=== PATIENT | female | born 1930 | race Caucasian/White ===

== ENCOUNTER 2017-09-10 15:11 | Outpatient (CLI) | payer MEDICARE | END 2017-09-10 15:12 | disposition home or self-care (01) | LOC: BICRAD 15:11 | PROVIDERS: ATTEND Internal Medicine | DX: R05 Cough (principal); R10.9 Unspecified abdominal pain | CPT/HCPCS: 71046 ==

== ENCOUNTER 2017-09-17 13:52 | Outpatient (CLI) | payer MEDICARE | END 2017-09-17 13:53 | disposition home or self-care (01) | LOC: BICRAD 13:52 | PROVIDERS: ATTEND Internal Medicine | DX: R05 Cough (principal) | CPT/HCPCS: 71046 ==

== ENCOUNTER 2017-09-30 07:44 | Inpatient (IN) | payer MEDICARE ==
[2017-09-30] MEDS ORDERED: Lidocaine 4% Cream 5 GM TUBE w/ Tegaderm ONE ×2 (08:14→08:18)
[2017-09-30 08:23] LABS: Mean Corpuscular HGB CONC 33.2 g/dL (32.0-36.0); Mean Platelet Volume 8.6 fL (7.4-10.4); Platelet Count 157 thou/uL (130-400); RBC Distribution Width 14.2 % (11.5-14.5); Red Blood Cell (RBC) Count 2.37 mill/uL (4.20-5.40); White Blood Cell (WBC) Count 5.6 thou/uL (4.8-10.8)
--- NOTE | 2017-09-30 08:45 | RAD ---
TWO VIEWS CHEST: Date: 09-30-17 Comparison: 06-19-14 History: Fall, trauma, pain, cough. FINDINGS: There is a left sided port-a-cath present, stable. There is atherosclerotic calcification or the aort ic arch. Graft material overlies the midline cardiac silhouette. Post-surgical clips overlie the righ t lung base. Heart and mediastinal contours are stable. There is stable pulmonary hyperinflation and increased linear interstitial density with no focal consolidation or alveolar edema. There is multil evel disc space narrowing and anterior osteophyte formation throughout the thoracic spine. There is a therosclerotic calcification of the visualized abdominal aorta. IMPRESSION: Numerous chronic findings as described above, unchanged. No lobar consolidation or alveolar edema. POS: CHANDAN
[2017-09-30 08:46] LABS: ALT (SGPT) 10 U/L (8-55); AST (SGOT) 12 U/L (5-34); Albumin 3.3 g/dL (3.4-4.8); Alkaline Phosphatase 62 U/L (40-150); Anion Gap 14 mmol/L (10-20); BUN (Urea Nitrogen) 56 mg/dL (9.8-20.1); Bilirubin, Total 0.6 mg/dL (0.2-1.2); CK (CPK) 19 U/L (29-168); Calc. Creatinine Clearance 0 mL/min (70-130); Calcium 9.4 mg/dL (7.8-10.44); Carbon Dioxide 27 mmol/L (23-31); Chloride 103 mmol/L (98-107); Estimated GFR-MDRD 36; Globulin 2.7 g/dL (2.4-3.5); Glucose 124 mg/dL (83-110); Potassium 4.8 mmol/L (3.5-5.1); Sodium 139 mmol/L (136-145)
[2017-09-30 08:50] LABS: CKMB 0.7 ng/mL (0-6.6)
[2017-09-30 08:55] LABS: #Basophils 0.1 thou/uL (0.0-0.2); #Eosinphils 0.1 thou/uL (0.0-0.7); #Lymphocytes 0.4 thou/uL (1.20-3.40); #Monocytes 0.5 thou/uL (0.11-0.59); #Neutrophils 4.7 thou/uL (1.40-6.50); %Eosinophils 0.9 % (0.0-10.0); %Lymphocytes 6.5 % (21.0-51.0); %Monocytes 8.1 % (0.0-10.0); %Neutrophils 83.5 % (42.0-75.0); MDiff Complete? YES; Macrocytosis MODERATE=16-30 cells (100X) (0-5/hpf); PLT Morphology Comment Appears Adequate; Polychromasia MODERATE = 3-4 cells (100X) (0-2/hpf)
[2017-09-30] MEDS ORDERED: Bacitracin Zinc 1 Packet ONE (09:44)
--- NOTE | 2017-09-30 10:27 | CT ---
CT ARTERIOGRAM CHEST WITH IV CONTRAST AND 3D MIP IMAGING: HISTORY: Dyspnea. Elevated D-dimer. COMPARISON: None. FINDINGS: Good contrast opacification of the pulmonary arteries with normal branching of the great vessels of t he aorta. Prominent arterial calcification. Deformity of the left side of the neck is similar to prior CT cervical spine from 2015 and may be rel ated to postoperative changes or congenital anomaly. Scattered areas of scarring are present throughout each lung. A noncalcified nodule within the right lower lobe is 0.8 cm in greatest diameter. Additional tiny, nonspecific nodules are present within each lung. Within the left lower lobe, peripheral atelectasis is present. There is ill defined soft tissue dens ity within the associated bronchi. IMPRESSION: 1. No CT evidence of pulmonary embolus. 2. Right lower lobe nodule, 0.8 cm. 3. Atelectasis, left posterior lung base, with some bronchial material, possibly representing mucus plugging. Please consider pulmonary medicine evaluation. Follow-up CT chest in six months would lik shaji be necessary to evaluate for stability of the right lower lobe nodule. 4. Atherosclerosis. POS: BST
[2017-09-30] MEDS ORDERED: Adacel (T-DAP) 0.5 ML VIAL ONE (10:30)
[2017-09-30] MEDS ORDERED: ISOVUE-370 76%-LOCM 1 ML ONE (10:33)
[2017-09-30] MEDS ORDERED: Levofloxacin 500 mg/D5W 100 ml Premix Bag ONE (10:55)
[2017-09-30 12:22] LABS: Bilirubin Negative (Negative); Blood, Urine Negative (Negative); Clarity CLEAR (Clear); Glucose, Urine (Dipstick) Negative (Negative); Leukocyte Trace (Negative); Nitrite Negative (Negative); Protein, Urine (Dipstick) Negative (Neg-Trace); Specific Gravity, Urine 1.024 (1.002-1.036); Urobilinogen 0.2 mg/dL (0.2-1.0)
[2017-09-30 12:24] LABS: Bacteria/HPF None Seen HPF (None Seen); Hyaline Casts/LPF 0-3 HYALINE CAST LPF (0-3 Hyaline); Pathc Cast-AUWi Flag 0.29 (0-2.49); RBC/HPF 0-3 HPF (0-3); Squamous Epithelial 0-3 HPF (0-3); WBC/HPF 0-3 HPF (0-3)
[2017-09-30 13:25] LABS: Troponin I 0.015 ng/mL (< 0.028)
[2017-09-30] MEDS ORDERED: Ondansetron HCl/PF 4 MG/2 ML Vial IVP PRN (13:56)
[2017-09-30] MEDS ORDERED: Sodium Chloride 0.9% 1,000 ML IV SCH (13:56)
[2017-09-30] MEDS ORDERED: Ondansetron ODT 4 MG TAB SL PRN (13:56)
[2017-09-30] MEDS ORDERED: Fentanyl 100 MCG/2 ML VIAL SLOW IVP PRN (13:57)
[2017-09-30 14:58] LABS: Troponin I 0.023 ng/mL (< 0.028)
[2017-09-30] MEDS ORDERED: Nitroglycerin 0.4 MG TAB (25 Tab Bottle) SL SCH (15:30)
[2017-09-30] MEDS: Sodium Chloride 0.9% 1,000 ML IV SCH (15:34)
[2017-09-30] MEDS: guaiFENesin 200 MG TAB PO SCH ×2 (15:35→21:49)
[2017-09-30] MEDS ORDERED: Cyclobenzaprine 10 MG TAB PO PRN (15:49)
--- NOTE | 2017-09-30 16:54 | CON ---
DATE OF CONSULTATION: 09/30/2017 REASON FOR CONSULTATION: Shortness of breath. PRIMARY CARE PROVIDER: Alvino Arias M.D. HISTORY OF PRESENT ILLNESS: Ms. Dickinson is an 86-year-old woman who is a patient of Dr. Ric Cain. Dr. Ginny Salazar also sees Ms. Dickinson. She recently presented with URI type symptoms over the last 2 weeks. She has received p.o. antibiotics. She has had fevers and chills at home. She then p resented with a fall. She states she did not lose consciousness. She presented to the emergency robin with a skin tear. It was recommended she be admitted for IV antibiotics. From my standpoint, upon my interview, she appears stable. No acute shortness of breath present. From a CV standpoint, she does have a history of TAVR placed in [address] Bridges in [facility]. Last echo on file was noted in 09/2016 with LVEF 55%-60% and a TAVR present. It appeared to be f unctioning normally with no significant mitral regurgitation present. PAST MEDICAL HISTORY: COPD, breast cancer, hypertension. PAST SURGICAL HISTORY: TAVR. ALLERGIES: SULFA. SOCIAL HISTORY: No current tobacco or alcohol use. HOME MEDICATIONS: Include Advair, allopurinol, aspirin, mag oxide, PreserVision, Centrum Silver, lis inopril and Lasix. REVIEW OF SYSTEMS: Ten-point review of systems is reviewed and as above, otherwise negative. PHYSICAL EXAMINATION: GENERAL: Patient is a pleasant female who is in no acute distress. The patient appears her stated a ge. VITAL SIGNS: Blood pressure 120/86, pulse 87, temperature 98. NEUROLOGIC: The patient is alert and oriented times 3 with no focal neurologic deficits. HEENT: Sclerae without icterus. Mouth has moist mucous membranes with normal pallor. NECK: No JVD. Carotid upstroke brisk. No bruits bilaterally. LUNGS: Clear to auscultation with unlabored respirations. BACK: No scoliosis or kyphosis. CARDIAC: Regular rate and rhythm with 2/6 systolic ejection murmur present. ABDOMEN: Soft, nontender, nondistended. No peritoneal signs present. No hepatosplenomegaly. No ab normal striae. EXTREMITIES: 1+ pitting edema. SKIN: No gross abnormalities. PERTINENT LABORATORY DATA: Hemoglobin 10, creatinine 1.4, which is up from 11/2016 of 0.99. IMPRESSION: 1. Shortness of breath. 2. Recent upper respiratory infection. 3. Atelectasis of the left posterior lung with some mucus plugging versus bronchiectasis. From a CV standpoint, I would recommend repeating her echo. It has been one year since her last echo performed in the office. She does have a murmur present. Would continue IV antibiotics. Anticipat e discharge in the next 1-2 days.
[2017-09-30] MEDS: cefTRIAXone\\ROCEPHIN 1 GM in Sodium Chloride 0.9% 100 ML IVPB SCH (17:31)
[2017-09-30] MEDS: Budesonide 0.5 MG/2 ML NEB INH SCH (18:07)
[2017-09-30] MEDS: Mometasone/Formoterol 120 PUFF INHALER INH SCH (18:11)
[2017-09-30] MEDS ORDERED: Mometasone/Formoterol 120 PUFF INHALER INH SCH (18:30)
[2017-09-30] MEDS: Doxycycline 100 MG CAP PO SCH (21:48)
[2017-09-30] MEDS: Acetaminophen 500 MG TAB PO SCH (21:48)
[2017-09-30] MEDS: Magnesium Oxide 400 MG TAB PO SCH (21:49)
[2017-09-30] MEDS: predniSONE 20 MG TAB PO SCH (21:49)
--- NOTE | 2017-09-30 23:02 | HP ---
CHIEF COMPLAINT: Fall and cough. HISTORY OF PRESENT ILLNESS: The patient is an 86-year-old female who is followed by Dr. Salazar. The patient lives fairly independently. She reports that she recently had "the flu that was going around." Patient says she saw her PCP and was given some oral antibiotics and improved with that. However, after the antibiotics were finished within 3-4 days, she started having cough again. She denies any sputum production, although her cough is rattling in her chest. She also denies any fevers, hemoptysis or shortness of breath. States she is still able to ambulate well without any shortness of breath. She also reports that she has been having some swelling in her lower extremities. She has recently had her diuretics increased, but she states that has not significantly helped her edema at this point. The patient was actually told she should come to the hospital yesterday for IV antibiotics. However, the patient declined today; however, she had a stumble and fall with a skin tear on her right forearm and presented to the emergency department that and was willing to stay in the hospital per Dr. Salazar's wishes to get the antibiotics. REVIEW OF SYSTEMS: Primarily notable for the cough. She has essentially negative review of systems other than those things mentioned in the history of present illness through a 10-system review. PAST MEDICAL HISTORY: Notable for COPD requiring nocturnal oxygen therapy. She has a history of aortic stenosis with a TAVR. 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 She has a history of breast cancer requiring lumpectomy with radiation and chemotherapy. 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 Ha. Gout and a history of osteoporosis with compression fractures. PAST SURGICAL HISTORY: Carpal tunnel release and the right shoulder surgery. Umbilical hernia repair with subsequent recurrence, exploratory laparotomy, D&C x2, appendectomy, bilateral cataract-ectomy, bilateral tooth extractions and TAVR procedure. Modified left radical neck dissection. Intracoronary stents according to the patient. However, there is nothing in her history about that and this may be related to the TAVR procedure. FAMILY HISTORY: Father at 86, apparently had some bladder cancer, but that was not the source of his . Mother at 92. She had a brother that at 85. She believes may be related to alcohol and a sister who of a CVA. SOCIAL HISTORY: The patient was a heavy smoker, smoking over 2 packs a day for over 60 years. She quit at the age of 72. The patient continues to have 2-3 glasses of wine per week socially. She denies drugs. She is . She has 4 children. One daughter, Nay Dickinson is here now. She is the person she would identify as her surrogate decision maker. Also, the patient states that she has a fully executed DNR at home and expresses a desire to remain DNR. PHYSICAL EXAMINATION: VITAL SIGNS: Temperature is 98.0, pulse 87, respirations 17, O2 sat 95%, BP 121 /56. GENERAL APPEARANCE: Age appropriate female. She is awake, alert, pleasant, in no distress. HEENT: PERRL. No OP lesions. Dentures in place. NECK: Reveals a substantial surgical defect of the modified radical neck dissection on the left. CARDIOVASCULAR: Regular without significant murmur heard at this time. LUNGS: Reveal some scattered rales in both bases. She has fair air exchange. ABDOMEN: Soft, nontender, nondistended, positive bowel sounds. There is a small umbilical hernia present, which is reducible. EXTREMITIES: Reveal 2-3+ pitting edema to the level of the knee in both lower extremities. There is some mild stasis dermatitis on the left ankle area. Skin tear on the right forearm that is dressed. Small superficial abrasion right posterior scalp. NEUROLOGIC: The patient is intact with no focal deficits. PSYCHIATRIC: Patient has normal affect. LABORATORY DATA: White count is 5.6, hemoglobin 10, platelets 157, D-dimer 1.1. Chemistry is notable for a BUN of 56 and creatinine of 1.4, which are above her baseline. BNP is 260. She has had three troponins which were negative. Albumin is 3.3. Urinalysis essentially negative. The chest x-ray shows chronic findings, some postsurgical clips at the right lung base, hyperinflation with linear interstitial density with no focal consolidation or edema. Significant degenerative disease of the spine is noted and calcifications of the aorta are noted. CT of the chest reveals no evidence of a pulmonary embolus, right lower lobe nodule at 0.8 cm, atelectasis in the posterior lung base with some bronchial material concerning for mucus plugging and atherosclerosis present. IMPRESSION AND PLAN: 1. Cough. Patient has no sputum production with his cough, although it sounds somewhat wet. I have consulted Pulmonology and I have discussed the case with him. His review of the CT scan is more consistent with more of a bronchiectasis type picture. We will give IV Rocephin and nebulizer treatments. He has added some steroids as well. We will add some mucolytics. No evidence of an actual pneumonia at this time. Suspect we can get this turned around fairly quickly and consider outpatient therapy yet again. 2. Significant peripheral edema. The patient's BNP is relatively low. She appears to have some stasis dermatitis. We will ask physical therapy to evaluate her for possible compression. 3. Dehydration. The patient has been on diuretics to address the peripheral edema. However, her edema persists and her BUN and creatinine are elevated in a prerenal manner. We will give her some IV fluids back carefully. We will consult Cardiology as well. 4. Subcentimeter lung nodule. Patient has a long history of heavy smoking and has had 2 previous cancers. I discussed this with the patient and her daughter. This may be too small to fully evaluate now, but they need to at least be aware that it exists and consider potential follow up in the future. 5. Chronic macrocytic anemia. This has been followed by Dr. Ha. We want into a new workup for this as it appears to be chronic. 6. Skin tear right forearm. Wound care. MTDD
--- NOTE | 2017-09-30 23:03 | CON ---
DATE OF CONSULTATION: 09/30/2017 HISTORY OF PRESENT ILLNESS: Candie Dickinson is an 86-year-old female who came to the ER with chronic cough , weakness, marked lower extremity swelling, recurrent coughing episodes, unresponsive to outpatient medication. She apparently fell and tripped this morning in the bathroom, caused extensive right upper extremity skin avulsion evaluation. Dr. Salazar is the primary care physician who called for the patient to go to the hospital for admiss ion for recurrent bronchitis, cough, unresponsive to outpatient medication. She sees Dr. Phelps regularly. The patient states that she had smoked in the past up to 2 packs a day, though she has quit smoking s everal years ago. She says on most days she uses a walker and was able to walk a fair distance witho ut getting short of breath. Denies any history of TB or asthma. She had a chest x-ray taken in the ER, which did not show any acute infiltrate. She had a CAT scan d one, which shows evidence of left lower lung bronchiectatic changes. She is now being admitted. PAST MEDICAL HISTORY: Extensive history as provided from Dr. Salazar's office includes previous hist ory of chronic bronchitis; COPD; history of breast cancer; chronic anemia; previous CVA; previous aph gerson, which has improved; previous coronary artery disease. PAST SURGICAL HISTORY: She has had multiple surgeries as outlined extensively in the past include ri t shoulder surgery, thyroid surgery, cataract, lumpectomy, chemotherapy, radiation. Additionally, she has had cardiac stent placed in. MEDICATIONS: She brought a long list of medicine from home includes albuterol HFA, allopurinol, aspi rin, Symbicort, Lasix 2 twice a day, Synthroid, Cytomel, lisinopril, magnesium, vitamins. ALLERGIES: SULFA. SOCIAL HISTORY: She lives in assisted correction area. No alcohol abuse. Tobacco as noted. REVIEW OF SYSTEMS: Otherwise, 10-point negative. PHYSICAL EXAMINATION: VITAL SIGNS: Blood pressure 135/50, sats 98% on room air, temperature 98, respiratory rate is 17. GENERAL: She appears to be in no distress. CHEST: Revealed bilateral rhonchi and crackles extensively. CARDIAC: Normal S1, S2. No gallops. ABDOMEN: Soft without any masses. EXTREMITIES: She has got 4+ ankle edema. NEUROLOGIC: She is awake, alert, responsive, moves all 4 extremities. LABORATORY DATA: Creatinine is 1.4, BUN is 56. BNP is 260. White count 5000, H&H 10 and 30, platel et count 157. IMPRESSION: 1. Acute on chronic bronchitis, bronchiectasis, chronic cough. 2. Azotemia. 3. Diastolic dysfunction. 4. Probably cor pulmonale. PLAN: Start her on neb treatments, Symbicort, steroids, antibiotic, Mucinex. We will notify Dr. Phelps, will see her in the morning. In regard to lower extremity swelling, she is to elevate them. Await input from Cardiology. This is a consultation note, 70 minutes of which 50% in direct patient care.
[2017-10-01 05:41] LABS: #Lymphocytes 0.2 thou/uL (1.20-3.40); #Monocytes 0.1 thou/uL (0.11-0.59); #Neutrophils 2.1 thou/uL (1.40-6.50); %Eosinophils 0.7 % (0.0-10.0); %Monocytes 3.3 % (0.0-10.0); %Neutrophils 87.9 % (42.0-75.0); Hemoglobin 9.1 g/dL (12.0-16.0); Mean Corpuscular HGB CONC 32.8 g/dL (32.0-36.0); Mean Corpuscular Hemoglobin 41.2 pg (27.0-31.0); Mean Platelet Volume 8.6 fL (7.4-10.4); Platelet Count 135 thou/uL (130-400); White Blood Cell (WBC) Count 2.4 thou/uL (4.8-10.8)
[2017-10-01 05:54] LABS: Anion Gap 12 mmol/L (10-20); BUN (Urea Nitrogen) 44 mg/dL (9.8-20.1); Calc. Creatinine Clearance 39 mL/min (70-130); Calcium 8.9 mg/dL (7.8-10.44); Carbon Dioxide 28 mmol/L (23-31); Chloride 106 mmol/L (98-107); Estimated GFR-MDRD 49; Glucose 176 mg/dL (83-110); Potassium 5.1 mmol/L (3.5-5.1); Sodium 141 mmol/L (136-145)
[2017-10-01] MEDS: Levothyroxine Sodium 100 MCG TAB PO SCH (05:57)
[2017-10-01] MEDS: Sodium Chloride 0.9% 1,000 ML IV SCH (05:57)
[2017-10-01] MEDS: Budesonide 0.5 MG/2 ML NEB INH SCH ×2 (07:09→18:53)
[2017-10-01] MEDS: Mometasone/Formoterol 120 PUFF INHALER INH SCH ×2 (07:13→18:56)
--- NOTE | 2017-10-01 08:01 | PRG ---
DATE OF SERVICE: 10/01/2017 History regarding the patient's admission was reviewed. She is minimizing her complaints today, stat ing that she wants to go home. She continues to be short of breath and cough up greenish yellow sput um. PHYSICAL EXAMINATION: VITAL SIGNS: Temperature 97.5, pulse 100, respirations 16, O2 sat 95%, blood pressure 146/63. HEENT: Unremarkable. NECK: No JVD. LUNGS: She has coarse rhonchi bilaterally, particularly over the bases. CARDIOVASCULAR: S1, S2 regular. ABDOMEN: Soft, nontender. EXTREMITIES: No clubbing, cyanosis, but she has trace edema. LABORATORY DATA: White blood cell count 2.4, hemoglobin 9.1, hematocrit 27.7, platelet count 135. S odium 141, potassium 5.1, chloride 106, CO2 28, BUN 44, creatinine 1.0, glucose 176. I reviewed the CT of the chest, it shows bronchiectatic changes in both bases with 8 mm right lower l obe pulmonary nodule. ASSESSMENT: 1. Chronic obstructive pulmonary disease. 2. Chronic bronchitis with exacerbation. 3. Bronchiectasis. RECOMMENDATIONS: She has apparently failed 4 rounds of antibiotics as an outpatient. I would recomm end continuing the doxycycline and ceftriaxone IV for at least 3 days. Also continue the steroids. Continue nebulization treatments. I do think she would benefit from 1-2 more days in the hospital.
[2017-10-01 08:47] VITALS: BMI 27.8
[2017-10-01] MEDS: Liothyronine Sodium 5 MCG TAB PO SCH (09:58)
[2017-10-01] MEDS: Doxycycline 100 MG CAP PO SCH ×2 (09:59→20:34)
[2017-10-01] MEDS: predniSONE 20 MG TAB PO SCH ×2 (09:59→20:35)
[2017-10-01] MEDS: Lisinopril 10 MG TAB PO SCH (09:59)
[2017-10-01] MEDS: Allopurinol 300 MG TAB PO SCH (09:59)
[2017-10-01] MEDS: guaiFENesin 200 MG TAB PO SCH ×3 (09:59→20:34)
[2017-10-01] MEDS: cefTRIAXone\\ROCEPHIN 1 GM in Sodium Chloride 0.9% 100 ML IVPB SCH (16:28)
--- NOTE | 2017-10-01 16:30 | PDOC.PN ---
- Subjective Encounter Start Date: 10/01/17 Encounter Start Time: 12:00 DOING FAIRLY WELL OVERALL. NO COMPLAINTS. LE EDEMA IS ACTUALLY BETTER TODAY. - Objective Resuscitation Status: Resuscitation Status DNR:Do Not Resuscitate Vital Signs & Weight: Vital Signs (12 hours) Temp Pulse Resp BP Pulse Ox 10/01/17 11:11 98.3 F 91 15 135/60 93 L 10/01/17 08:17 98.3 F 91 15 138/59 L 99 10/01/17 07:09 100 16 95 Weight Admit Weight 142 lb Weight 147 lb I&O: 09/30/17 10/01/17 10/02/17 06:59 06:59 06:59 Intake Total 1940 Output Total 800 Balance 1140 Result Diagrams: 10/01/17 05:08 10/01/17 05:08 Phys Exam - Physical Examination Constitutional: NAD Neck: no JVD, supple SCATTERED BILATERAL RALES. Cardiovascular: RRR, no significant murmur Gastrointestinal: soft, non-tender, no distention, positive bowel sounds 1+ PITTING EDEMA BLE'S. IMPROVED FROM YESTERDAY. Neurological: non-focal Psychiatric: normal affect Deviation from normal: MILD STASIS DERMATITIS LLE. Dx/Plan (1) COPD (chronic obstructive pulmonary disease) with chronic bronchitis Code(s): J44.9 - CHRONIC OBSTRUCTIVE PULMONARY DISEASE, UNSPECIFIED Status: Acute Plan: PULMONOLOGY FOLLOWING. RECOMMENDS CONTINUED IV ANTIBIOTICS FOR 1-2 DAYS. OXYGENATING WELL. CONTINUE IV ROCEPHIN AND ORAL DOXYCYCLINE. WILL DC ON ORAL DOXYCYCLINE. CONTINUE NEBS. (2) Leg edema Code(s): R60.0 - LOCALIZED EDEMA Status: Acute Plan: IMPROVED WITH POSITIONING. AWAITING PT ASSESSMENT FOR POSSIBLE COMPRESSION OPTIONS. (3) Dehydration Code(s): E86.0 - DEHYDRATION Status: Acute Plan: DIRUETICS HELD. GENTLE HYDRATION GIVEN. NUMBERS IMPROVED. WILL RESUME LOWER DOSE DIURETICS TOMORROW. (4) Skin tear of forearm without complication Code(s): S51.819A - LACERATION WITHOUT FOREIGN BODY OF UNSP FOREARM, INIT ENCNTR Status: Acute Plan: WOUND CARE CONSULT. CONTINUE WITH DRESSING CHANGES. - Plan * ABOVE.
--- NOTE | 2017-10-01 17:44 | PRG ---
DATE OF SERVICE: 10/01/2017 SUBJECTIVE: Ms. Dickinson is feeling a lot better. She has less shortness of breath. She continues to be on antibiotic therapy. Her recent echo suggested a normal LVEF. Gradient to the aortic valve appeared unchanged from previo us echo in the office dated 09/2016. Her LVEF appears normal. OBJECTIVE: GENERAL: Patient is a pleasant female who is in no acute distress. The patient appears her stated a ge. VITAL SIGNS: Blood pressure 142/60, pulse 71, temperature 98.3. NEUROLOGIC: The patient is alert and oriented times 3 with no focal neurologic deficits. HEENT: Sclerae without icterus. Mouth has moist mucous membranes with normal pallor. NECK: No JVD. Carotid upstroke brisk. No bruits bilaterally. LUNGS: Clear to auscultation with unlabored respirations. BACK: No scoliosis or kyphosis. CARDIAC: Regular rate and rhythm with 1-2/6 systolic ejection murmur. ABDOMEN: Soft, nontender, nondistended. No peritoneal signs present. No hepatosplenomegaly. No ab normal striae. EXTREMITIES: 2+ femoral and 2+ dorsalis pedis pulses. No cyanosis, clubbing, or edema. SKIN: No gross abnormalities. PERTINENT LABS: Hemoglobin 9.1, white blood cell count 2.4. IMPRESSION: 1. Aortic stenosis status post transcatheter aortic valve replacement. 2. Problems with bronchiectasis. 3. Breast cancer. RECOMMENDATIONS: Overall, LVEF appears stable over the last 1 year. Main issue appears to be bronch iectasis. Her LVEF overall appears normal. From a CV standpoint, I have no further recommendations. From my standpoint, it would be okay to discharge telemetry monitoring and transfer to medical if a nticipate further days in the hospital. The patient is followed by Dr. Ric Cain as an outpatien t.
[2017-10-01] MEDS: Acetaminophen 500 MG TAB PO SCH (20:34)
[2017-10-01] MEDS: Magnesium Oxide 400 MG TAB PO SCH (20:35)
[2017-10-02] MEDS: Levothyroxine Sodium 100 MCG TAB PO SCH (05:19)
[2017-10-02 05:28] LABS: #Lymphocytes 0.3 thou/uL (1.20-3.40); #Monocytes 0.1 thou/uL (0.11-0.59); #Neutrophils 3.6 thou/uL (1.40-6.50); %Basophils 0.4 % (0.0-1.0); %Eosinophils 0.3 % (0.0-10.0); %Lymphocytes 8.3 % (21.0-51.0); %Monocytes 3.1 % (0.0-10.0); %Neutrophils 87.9 % (42.0-75.0); Hemoglobin 9.3 g/dL (12.0-16.0); Mean Corpuscular HGB CONC 32.8 g/dL (32.0-36.0); Mean Corpuscular Hemoglobin 42.1 pg (27.0-31.0); Platelet Count 146 thou/uL (130-400); Red Blood Cell (RBC) Count 2.21 mill/uL (4.20-5.40); White Blood Cell (WBC) Count 4.1 thou/uL (4.8-10.8)
[2017-10-02 05:44] LABS: Anion Gap 13 mmol/L (10-20); BUN (Urea Nitrogen) 37 mg/dL (9.8-20.1); Calc. Creatinine Clearance 48 mL/min (70-130); Calcium 8.9 mg/dL (7.8-10.44); Carbon Dioxide 22 mmol/L (23-31); Chloride 108 mmol/L (98-107); Estimated GFR-MDRD 61; Glucose 188 mg/dL (83-110); Potassium 4.8 mmol/L (3.5-5.1); Sodium 138 mmol/L (136-145)
[2017-10-02] MEDS: Mometasone/Formoterol 120 PUFF INHALER INH SCH ×2 (07:22→19:22)
[2017-10-02] MEDS: Budesonide 0.5 MG/2 ML NEB INH SCH ×2 (07:23→19:20)
[2017-10-02] MEDS: guaiFENesin 200 MG TAB PO SCH ×3 (08:24→20:48)
[2017-10-02] MEDS: Doxycycline 100 MG CAP PO SCH ×2 (08:24→20:48)
[2017-10-02] MEDS: Lisinopril 10 MG TAB PO SCH (08:25)
[2017-10-02] MEDS: Allopurinol 300 MG TAB PO SCH (08:25)
[2017-10-02] MEDS: predniSONE 20 MG TAB PO SCH ×2 (08:25→20:49)
[2017-10-02] MEDS: Liothyronine Sodium 5 MCG TAB PO SCH (08:25)
--- NOTE | 2017-10-02 09:12 | PDOC.PN ---
- Subjective Encounter Start Date: 10/02/17 Encounter Start Time: 09:11 FEELING A LITTLE BETTER. COUGH IS SLIGHTLY IMPROVED. SPUTUM IS EASIER TO MANAGE. MODEST DISCOMFORT IN RIGHT FOREARM WITH SKIN TEAR. - Objective Resuscitation Status: Resuscitation Status DNR:Do Not Resuscitate MAR Reviewed: Yes Vital Signs & Weight: Vital Signs (12 hours) Temp Pulse Resp BP BP Pulse Ox 10/02/17 08:20 97.9 F 72 18 124/53 L 93 L 10/02/17 07:25 72 18 94 L 10/02/17 07:23 72 18 94 L 10/02/17 07:22 72 16 92 L 10/02/17 03:35 98.2 F 90 18 145/60 H 98 Weight Admit Weight 142 lb Weight 147 lb I&O: 10/01/17 10/02/17 10/03/17 06:59 06:59 06:59 Intake Total 1940 1440 Output Total 800 800 Balance 1140 640 Result Diagrams: 10/02/17 04:34 10/02/17 04:34 Phys Exam - Physical Examination Constitutional: NAD Respiratory: no wheezing, no rales, no rhonchi, clear to auscultation bilateral Cardiovascular: RRR MURMUR USB Gastrointestinal: soft, non-tender, no distention, positive bowel sounds IMPROVED LE EDEMA Neurological: non-focal Psychiatric: normal affect Deviation from normal: R FA WRAPPED. Dx/Plan (1) COPD (chronic obstructive pulmonary disease) with chronic bronchitis Code(s): J44.9 - CHRONIC OBSTRUCTIVE PULMONARY DISEASE, UNSPECIFIED Status: Acute Plan: COMPONENT OF BRONCHIECTASIS. CONTINUE ROCEPHIN AND DOXYCYCLINE TODAY. CONTINUE GUAIFENESIN, NEBS. (2) Bronchiectasis Code(s): J47.9 - BRONCHIECTASIS, UNCOMPLICATED Status: Acute Plan: EXPLAINED THE PATHOLOGY TO PATIENT AND DAUGHTER. MAY HAVE SOME CHRONIC COUGH. SHOULD CONTINUE TO USE THE MUCOLYTICS AND TREAT WHEN SHE IS MORE SYMPTOMATIC, FEBRILE OR HAS DISCOLORED SPUTUM. (3) Leg edema Code(s): R60.0 - LOCALIZED EDEMA Status: Acute Plan: KEEP ELEVATED TOLERATED. SUSPECT VENOUS INSUFFICIENCY. MUCH IMPROVED. (4) Dehydration Code(s): E86.0 - DEHYDRATION Status: Resolved Plan: HAD HELD DIURETICS AND GIVEN FLUIDS. BUN, CREAT IMPROVED. RESUME ONCE DAILY LASIX. (5) Skin tear of forearm without complication Code(s): S51.819A - LACERATION WITHOUT FOREIGN BODY OF UNSP FOREARM, INIT ENCNTR Status: Acute Plan: WOUND CARE DRESSED THE WOUND. DRESSING CAN STAY FOR 3 DAYS. HH CAN FOLLOW. - Plan * ABOVE * CONTINUE IV ABX TODAY. * WILL LIKELY BE LATE BEFORE DOSE IS GIVEN * SHE HAS NO HELP AT HOME UNTIL THE MORNING * ANTICIPATE DC IN A.M.
[2017-10-02] MEDS ORDERED: Furosemide 40 MG TAB PO SCH (09:15)
--- NOTE | 2017-10-02 10:09 | PRG ---
DATE OF SERVICE: 10/02/2017 SUBJECTIVE: She is beginning to feel much better. OBJECTIVE: VITAL SIGNS: Temperature is 97.9, pulse 72, respirations 18, blood pressure 124/53, O2 sat 93% on ro om air. HEENT: Unremarkable. NECK: No JVD. CHEST: Clear. She does have some residual cough. CARDIAC: S1 and S2 regular. ABDOMEN: Soft. EXTREMITIES: No edema. LABORATORY DATA: White blood cell count 4.1, hematocrit 28.3, platelet count 146. Sodium 130, potas sium 4.8, chloride 108, CO2 22, BUN 37, creatinine 0.8, glucose 188. ASSESSMENT: Chronic bronchitis/bronchiectasis with exacerbation - symptoms have improved on antibiot ics. PLAN: I think she could probably go home tomorrow. I would switch her over to Omnicef 600 mg daily at discharge and treated for another 7 days. I would also treat her for another 7 days of doxycyclin e. She can follow up in my office about 3 weeks after discharge.
[2017-10-02] MEDS: cefTRIAXone\\ROCEPHIN 1 GM in Sodium Chloride 0.9% 100 ML IVPB SCH (16:20)
[2017-10-02] MEDS: Magnesium Oxide 400 MG TAB PO SCH (20:48)
[2017-10-02] MEDS: Acetaminophen 500 MG TAB PO SCH (20:49)
[2017-10-03 04:59] LABS: #Lymphocytes 0.3 thou/uL (1.20-3.40); #Monocytes 0.2 thou/uL (0.11-0.59); #Neutrophils 3.3 thou/uL (1.40-6.50); %Basophils 0.4 % (0.0-1.0); %Eosinophils 0.2 % (0.0-10.0); %Lymphocytes 7.8 % (21.0-51.0); %Monocytes 5.4 % (0.0-10.0); %Neutrophils 86.3 % (42.0-75.0); Hemoglobin 8.6 g/dL (12.0-16.0); Mean Corpuscular HGB CONC 33.7 g/dL (32.0-36.0); Mean Corpuscular Hemoglobin 42.7 pg (27.0-31.0); Platelet Count 152 thou/uL (130-400); Red Blood Cell (RBC) Count 2.02 mill/uL (4.20-5.40); White Blood Cell (WBC) Count 3.8 thou/uL (4.8-10.8)
[2017-10-03 05:09] LABS: Anion Gap 11 mmol/L (10-20); BUN (Urea Nitrogen) 42 mg/dL (9.8-20.1); Calc. Creatinine Clearance 51 mL/min (70-130); Calcium 8.9 mg/dL (7.8-10.44); Carbon Dioxide 25 mmol/L (23-31); Chloride 111 mmol/L (98-107); Estimated GFR-MDRD 65; Glucose 159 mg/dL (83-110); Potassium 4.8 mmol/L (3.5-5.1); Sodium 142 mmol/L (136-145)
[2017-10-03] MEDS: Levothyroxine Sodium 100 MCG TAB PO SCH (05:55)
[2017-10-03] MEDS: Mometasone/Formoterol 120 PUFF INHALER INH SCH (07:07)
[2017-10-03] MEDS: Budesonide 0.5 MG/2 ML NEB INH SCH (07:07)
[2017-10-03] MEDS ORDERED: Furosemide 40 MG TAB PO SCH ×2 (07:30→08:56)
[2017-10-03] MEDS: Liothyronine Sodium 5 MCG TAB PO SCH (08:17)
[2017-10-03] MEDS: Allopurinol 300 MG TAB PO SCH (08:17)
[2017-10-03] MEDS: Doxycycline 100 MG CAP PO SCH (08:17)
[2017-10-03] MEDS: Lisinopril 10 MG TAB PO SCH (08:18)
[2017-10-03] MEDS: guaiFENesin 200 MG TAB PO SCH (08:18)
[2017-10-03] MEDS: predniSONE 20 MG TAB PO SCH (08:18)
[2017-10-03 08:26] VITALS: BP 166/70; TEMP 97.4
--- NOTE | 2017-10-03 16:51 | DIS ---
DATE OF ADMISSION: 09/30/2017 DATE OF DISCHARGE: 10/03/2017 DISCHARGE DIAGNOSES: 1. 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 2. Bronchiectasis. 3. Peripheral edema. 4. Skin tear of the right forearm. 5. Mild dehydration. 6. Chronic macrocytic anemia, followed by Dr. Ha. HOSPITAL COURSE: This patient is an 86-year-old female who is followed by Dr. Salazar. The patient has a history of some chronic lower extremity edema and is followed by Cardiology. She had some diur esis for this. The patient was with Cardiology because of history of a transvenous aortic valve repa ir. This appeared to be otherwise stable. She was not having significant improvement of the periphe ral edema with the diuretics. In the setting of that picture, the patient developed cough some weeks prior to her admission. She reported that the cough was wet, but she was unable to produce any sput um. She had been on several rounds of antibiotics as an outpatient, but was having a difficult time resolving the cough. She did finally have some mild resolution, but then her symptoms recurred fairl y promptly. With this, the patient's primary care provider recommended that she come to the hospital for IV antibiotics. The patient initially declined; however, on the subsequent day, the patient had a mechanical fall and resulted in a large skin tear on her right forearm. The patient presented to the emergency department for that and was subsequently willing to stay for the antibiotics as well. Her chest x-ray showed some chronic findings with no acute infiltrates. CT scan of the chest reveale d no evidence of PE, but there was right lower lobe nodule at 0.8 cm. There was some atelectasis in the posterior lung base with some bronchial material concerning for mucus plugging and some atheroscl erosis present. Her white count was 5.6. D-dimer was 1.1. Chemistries were notable for BUN of 56 a nd creatinine of 1.4, which were above her baseline. Her troponins and urinalysis were negative. HOSPITAL COURSE: The patient was admitted initially to observation and started on IV Rocephin as wel l as mucolytics and nebulizer treatments. Pulmonology was consulted. On the review of the CAT scan, it appeared that there may be more bronchiectasis than originally reported. The recommendation was for her IV antibiotics for 2-3 days and then continuation with oral Omnicef and doxycycline. The pat ient remained stable, if not slightly improved with her cough with antibiotics. The patient also had her lower extremities elevated to address her lower extremity edema. That did improve substantially . The patient's forearm was seen by Wound Care and dressing was applied appropriately. That remaine d on with their care through the hospitalization. The patient's initial workup was concerning for in travascular depletion with some prerenal azotemia. This was felt to be due to the aggressive diuresi s. Her diuretics were initially held and she was gently hydrated. Her numbers did improve with that . She was subsequently started back on 40 mg of Lasix once a day which was lower dose than she had o riginally been on. PHYSICAL EXAMINATION: VITAL SIGNS: On the day of discharge, temperature 97.4, pulse ranged from 90-115, respirations were 18, O2 sat was 92% on room air, and BP 147/63-166/70. GENERAL APPEARANCE: Age appropriate female in no distress. She was awake and alert. She was in no distress. HEART: Regular with no murmurs. LUNGS: Had some scattered rales which were largely upper airway. ABDOMEN: Soft, nontender and nondistended with positive bowel sounds. EXTREMITIES: Warm and dry with only trace ankle edema. LABORATORY DATA: Were notable for white count of 3.8, hemoglobin of 8.6, platelets 152, BUN was 42 a nd creatinine was 0.83. DISPOSITION: The patient is discharged to home. She will have home health following her for skill t o help with her right forearm wound as well as therapy. She will have activity as tolerated. She wi ll be on a heart healthy diet. DISCHARGE MEDICATIONS: Her new medications will include Omnicef 300 mg b.i.d., doxycycline 100 mg b. i.d., Lasix 400 mg daily. Her usual medicines, continue her lisinopril 10 mg p.o. daily, Cytomel 5 m cg p.o. daily, levothyroxine 200 mcg p.o. daily, allopurinol 300 mg p.o. daily, albuterol p.r.n., mimi taminophen p.r.n., Symbicort 2 puffs b.i.d., aspirin 81 mg daily, multivitamin 1 p.o. daily, nitrogly cerin p.r.n., magnesium 400 mg at bedtime, vitamin D3 2000 units every day, cyclobenzaprine 0.5 mg at bedtime p.r.n., Centrum Silver Women 1 p.o. daily. The patient is to follow up with Dr. Salazar next week. If she has any problems prior to that time, she should return.
== END 2017-10-03 10:47 | disposition home health service (06) | DRG 192 ==
LOC: ERS 07:44 → 2NO 13:35
PROVIDERS: ADMIT Internal Medicine; ATTEND Internal Medicine
DX: J47.1 Bronchiectasis with (acute) exacerbation (principal); I87.2 Venous insufficiency (chronic) (peripheral); E86.0 Dehydration; D53.9 Nutritional anemia, unspecified; R91.1 Solitary pulmonary nodule; R60.9 Edema, unspecified; S51.811A Laceration without foreign body of right forearm, initial encounter; I69.320 Aphasia following cerebral infarction; Z66 Do not resuscitate; Z87.891 Personal history of nicotine dependence; E89.0 Postprocedural hypothyroidism; I25.10 Atherosclerotic heart disease of native coronary artery without angina pectoris; M81.0 Age-related osteoporosis without current pathological fracture; Z95.2 Presence of prosthetic heart valve; M10.9 Gout, unspecified; Z85.850 Personal history of malignant neoplasm of thyroid; Z85.3 Personal history of malignant neoplasm of breast; Z95.5 Presence of coronary angioplasty implant and graft; Z79.82 Long term (current) use of aspirin; Z79.899 Other long term (current) drug therapy; W01.0XXA Fall on same level from slipping, tripping and stumbling without subsequent striking against object, initial encounter; Y92.009 Unspecified place in unspecified non-institutional (private) residence as the place of occurrence of the external cause
CPT/HCPCS: 12001; 36415; 71046; 71275; 80048; 80053; 81003; 81015; 82550; 82553; 83880; 84484; 85025; 85379; 87040; 87086; 90471; 90715; 93005; 93306; 94640; 96365; G8978-GP-CJ; G8979-GP-CJ; G8980-GP-CJ; J0696; J1956; J7050; J7506; J7620; J7626

== ENCOUNTER 2017-10-07 13:32 | Outpatient (CLI) | payer MEDICARE ==
--- NOTE | 2017-10-07 19:32 | HP ---
DATE OF SERVICE: 10/07/2017 HISTORY OF PRESENT ILLNESS: Ms. Candie Dickinson is a very pleasant 86-year-old who presents to the Wound Center for evaluation of multiple skin tears of the right upper extremity subsequent to a fall on 09/30/2017. The patient stumbled and fell on her way to the hospital for admission for IV antibiotics as per Dr. Salazar. The patient's wounds were dressed at [facility] on the day of admission following day and on the day of discharge on 10/03/2017. PAST MEDICAL HISTORY: 1. Chronic bronchitis. 2. Chronic obstructive pulmonary disease. 3. Bronchiectasis. 4. History of breast CA. 5. Chronic anemia. 6. History of cerebrovascular accident. 7. Coronary artery disease. 8. History of aortic stenosis, status post TAVR. 9. 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 10. Warthin's tumor of right parotid. 11. Atrial fibrillation. 12. Gout. 13. Osteoporosis. 14. Hypertension. PAST SURGICAL HISTORY: 1. Right shoulder surgery. 2. Thyroid surgery. 3. Bilateral cataract surgery. 4. Lumpectomy in conjunction with chemotherapy and radiation therapy. 5. Carpal tunnel release. 6. Umbilical hernia repair. 7. Exploratory laparotomy. 8. D&C x2. 9. Appendectomy. 10. Oral surgery. MEDICATIONS: 1. Omnicef. 2. Doxycycline. 3. Lasix. 4. Lisinopril. 5. Cytomel. 6. Levothyroxine. 7. Lasix. 8. Allopurinol. 9. Albuterol. 10. Acetaminophen. 11. Symbicort. 12. Aspirin 81 mg. 13. PreserVision. 14. Nitroglycerin. 15. Magnesium oxide. 16. Vitamin D3. 17. Cyclobenzaprine. 18. Centrum Silver Women. ALLERGIES: SULFA. SOCIAL HISTORY: Significant for tobacco use from age [age] of up to 3 packs of cigarettes per day. The patient states that she stopped smoking 10 years ago. The patient admits to the consumption of w ine with dinner. FAMILY HISTORY: Negative for diabetes mellitus. Family history is significant for coronary artery d isease. The patient's brother was diagnosed with coronary artery disease. PHYSICAL EXAMINATION: VITAL SIGNS: Temperature 97.7, pulse 92, respirations 14, blood pressure 151/67. GENERAL: An 86-year-old female sitting on table in examination room in no acute distress. HEENT: Normocephalic, atraumatic. NECK: No nuchal rigidity. CHEST: Clear to auscultation. CARDIOVASCULAR: Regular rate and rhythm. ABDOMEN: Soft. EXTREMITIES: Multiple skin tears of the right upper extremity are present. No purulent drainage is associated with any of the wounds. Nonviable tissue associated with one of the skin tears was debrid ed with an excisional full-thickness debridement with the use of scissors. No cellulitis of the righ t upper extremity is appreciated. No maceration of the skin of the right upper extremity is present. Mild to moderate edema of the right upper extremity is present on exam today. ASSESSMENT AND PLAN: 1. Multiple skin tears of right upper extremity as described above. Xeroform gauze, Webril, Colton, an d Coban will be applied to the right upper extremity wounds today. The patient is to return to the [facility] in 1 week for a dressing change again of Xeroform gauze, Webril, Colton bandage, and Coban. I will see Ms. Dickinson again in two weeks. The patient is to continue p.o. antibiotics as previously prescribed. The patient and her daughter understands and are in agreement with the preceding treatme nt plan. 2. Chronic bronchitis. 3. Chronic obstructive pulmonary disease. 4. Bronchiectasis. 5. History of breast carcinoma. 6. Chronic anemia. 7. History of cerebrovascular accident. 8. Coronary artery disease. 9. History of aortic stenosis, status post TAVR. 10. 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 11. Warthin's tumor of right parotid. 12. Atrial fibrillation. 13. Gout. 14. Osteoporosis. 15. Hypertension.
[2017-10-08] MEDS ORDERED: Sodium Chloride 0.9% 15 ML NEB ONE (18:57)
[2017-10-08] MEDS ORDERED: Lidocaine 2% Jelly 5 ML TUBE ONE (18:57)
== END 2017-10-07 13:33 | disposition home or self-care (01) ==
LOC: WCC 13:32
PROVIDERS: ATTEND Family Medicine
DX: L98.491 Non-pressure chronic ulcer of skin of other sites limited to breakdown of skin (principal); J44.9 Chronic obstructive pulmonary disease, unspecified; Z85.3 Personal history of malignant neoplasm of breast; D64.9 Anemia, unspecified; Z86.73 Personal history of transient ischemic attack (TIA), and cerebral infarction without residual deficits; I25.10 Atherosclerotic heart disease of native coronary artery without angina pectoris; Z95.2 Presence of prosthetic heart valve; E89.0 Postprocedural hypothyroidism; D11.0 Benign neoplasm of parotid gland; I48.91 Unspecified atrial fibrillation; M10.9 Gout, unspecified; M81.0 Age-related osteoporosis without current pathological fracture; I10 Essential (primary) hypertension
CPT/HCPCS: 11042; 99203; A4218; G0463

== ENCOUNTER 2017-10-15 09:50 | Outpatient (CLI) | payer MEDICARE ==
[2017-10-18] MEDS ORDERED: Lidocaine 4% Topical Sol 50 ML BOT ONE (13:38)
[2017-10-18] MEDS ORDERED: Sodium Chloride 0.9% 15 ML NEB ONE (13:38)
== END 2017-10-15 09:51 | disposition home or self-care (01) ==
LOC: WCC 09:50
PROVIDERS: ATTEND Family Medicine
DX: S40.921A Unspecified superficial injury of right upper arm, initial encounter (principal)
CPT/HCPCS: 97139; G0463; 99211; A4218; J2001

== ENCOUNTER 2017-10-22 09:29 | Outpatient (CLI) | payer MEDICARE ==
--- NOTE | 2017-10-22 10:31 | PRG ---
DATE OF SERVICE: 10/22/2017 HISTORY: Ms. Candie Dickinson is a very pleasant 86-year-old who presents to the Wound Center for evaluation of multiple skin tears of the right upper extremity subsequent to a fall on 8. The patient stumbled and fell on her way to the hospital for admission for IV antibiotics. The p yasmeen's wounds were dressed at [facility] on the day of admission, the follow ing day and on the day of discharge on 10/03/2017. After being seen in the Wound Center on 8, the patient has been receiving dressing changes of Xeroform gauze, Webril, Colton, and Coban on a wee kly basis here in the Wound Center. PHYSICAL EXAMINATION: VITAL SIGNS: Temperature 98.0, pulse 99, respirations 16, blood pressure 166/63. EXTREMITIES: Multiple skin tears of the right upper extremity are healing without complications or a ny signs of infection. No purulent drainage is associated with any of the wounds. Granulation tissu e is present within the margins of two of the wounds of the right upper extremity. No cellulitis of the right upper extremity is present. No maceration of the skin of the right upper extremity is pres ent. No significant edema of the right upper extremity is present on exam today. ASSESSMENT AND PLAN: 1. Multiple skin tears of right upper extremity. All of the wounds are healing without complication s or any signs of infection. Xeroform gauze, Webril, Colton, and Coban will be applied again to the rig ht upper extremity wounds today. I will see Ms. Dickinson again in one week. The patient and her daught er-in-law understands and are in agreement with the preceding treatment plan. 2. Chronic bronchitis. 3. Chronic obstructive pulmonary disease. 4. Bronchiectasis. 5. History of breast carcinoma. 6. Chronic anemia. 7. History of cerebrovascular accident. 8. Coronary artery disease. 9. History of aortic stenosis, status post TAVR. 10. Surgical hypothyroidism following adenocarcinoma of the thyroid in modified radical neck dissect ion. 11. Warthin's tumor of right parotid. 12. Atrial fibrillation. 13. Gout. 14. Osteoporosis. 15. Hypertension.
[2017-10-22] MEDS ORDERED: Sodium Chloride 0.9% 15 ML NEB ONE (10:34)
[2017-10-22] MEDS ORDERED: Lidocaine 2% Jelly 5 ML TUBE ONE (10:34)
== END 2017-10-22 09:30 | disposition home or self-care (01) ==
LOC: WCC 09:29
PROVIDERS: ATTEND Family Medicine
DX: S61.411D Laceration without foreign body of right hand, subsequent encounter (principal); J42 Unspecified chronic bronchitis; J47.9 Bronchiectasis, uncomplicated; D64.9 Anemia, unspecified; I25.10 Atherosclerotic heart disease of native coronary artery without angina pectoris; E89.0 Postprocedural hypothyroidism; D11.0 Benign neoplasm of parotid gland; I48.91 Unspecified atrial fibrillation; M10.9 Gout, unspecified; M81.0 Age-related osteoporosis without current pathological fracture; I10 Essential (primary) hypertension; Z86.73 Personal history of transient ischemic attack (TIA), and cerebral infarction without residual deficits; Z85.850 Personal history of malignant neoplasm of thyroid; Z85.3 Personal history of malignant neoplasm of breast; Z95.2 Presence of prosthetic heart valve
CPT/HCPCS: 97602; A4218

== ENCOUNTER 2017-10-26 08:22 | Outpatient (CLI) | payer MEDICARE | END 2017-10-26 08:23 | disposition home or self-care (01) | LOC: WCC 08:22 | PROVIDERS: ATTEND Family Medicine | DX: S41.111D Laceration without foreign body of right upper arm, subsequent encounter (principal) | CPT/HCPCS: 97139; G0463; 99211 ==

== ENCOUNTER 2017-10-28 14:52 | Outpatient (CLI) | payer MEDICARE ==
--- NOTE | 2017-10-28 18:58 | PRG ---
DATE OF SERVICE: 10/28/2017 . HISTORY: Ms. Candie Dickinson is a very pleasant 86-year-old, who presents to the Wound Center for evaluati on of multiple skin tears of the right upper extremity subsequent to a fall on 09/30/2017. The patie nt stumbled and fell on her way to the hospital for admission for IV antibiotics. The patient's woun ds were dressed at [facility] on the day of admission the following day and on the day of discharge on 10/03/2017. After being seen in the Wound Center on 10/07/2017, the patient has been receiving dressing changes of Xeroform gauze, Webril, Colton, and Coban on a weekly basis here in the Wound Center. PHYSICAL EXAMINATION: VITAL SIGNS: Temperature 97.7, pulse 88, respirations 19, and blood pressure 133/60. EXTREMITIES: Two skin tears of the right upper extremity are healing without complications or any si gns of infection. No purulent drainage is associated with either wound. Granulation tissue is prese nt within the margins of both wounds. No cellulitis of the right upper extremity is present. No mac eration of the skin of the right upper extremity is present. No significant edema of the right upper extremity is present on exam today. ASSESSMENT AND PLAN: 1. Multiple skin tears of right upper extremity. As stated above, only two wounds remain. Xeroform gauze, Webril, Colton, and Coban will be applied to the two remaining right upper extremity wounds toda y. I will see Ms. Dickinson again in one week. 2. Chronic bronchitis. 3. Chronic obstructive pulmonary disease. 4. Bronchiectasis. 5. History of breast carcinoma. 6. Chronic anemia. 7. History of cerebrovascular accident. 8. Coronary artery disease. 9. History of aortic stenosis, status post TAVR. 10. Surgical hypothyroidism following adenocarcinoma of the thyroid with modified radical neck disse ction. 11. Warthin's tumor of right parotid. 12. Atrial fibrillation. 13. Gout. 14. Osteoporosis. 15. Hypertension.
== END 2017-10-28 14:53 | disposition home or self-care (01) ==
LOC: WCC 14:52
PROVIDERS: ATTEND Family Medicine
DX: S41.111D Laceration without foreign body of right upper arm, subsequent encounter (principal); J44.9 Chronic obstructive pulmonary disease, unspecified; D53.9 Nutritional anemia, unspecified; I25.10 Atherosclerotic heart disease of native coronary artery without angina pectoris; D11.0 Benign neoplasm of parotid gland; I48.91 Unspecified atrial fibrillation; M10.9 Gout, unspecified; M81.0 Age-related osteoporosis without current pathological fracture; I10 Essential (primary) hypertension; Z85.3 Personal history of malignant neoplasm of breast; Z98.890 Other specified postprocedural states
CPT/HCPCS: 97602

== ENCOUNTER 2017-11-04 10:17 | Outpatient (CLI) | payer MEDICARE ==
--- NOTE | 2017-11-04 11:12 | PRG ---
DATE OF SERVICE: 11/04/2017 HISTORY: Ms. Candie Dickinson is a very pleasant 86-year-old who presents to the Wound Center for evaluati on of multiple skin tears of the right upper extremity, subsequent to a fall on 09/30/2017. The sheila ent stumbled and fell on her way to the hospital for admission for IV antibiotics. The patient's wou nds were dressed at [facility] on the day of admission, the following day and on the day of discharge on 10/03/2017. After being seen in the Wound Center on 10/07/2017 the radha da silva has been receiving weekly dressing changes of Xeroform gauze, Webril, Colton, and Coban here in the Wo und Center. PHYSICAL EXAMINATION: VITAL SIGNS: Temperature 97.8, pulse 98, respirations 18, blood pressure 154/65. EXTREMITIES: Only one wound of the right forearm over the dorsum of the forearm is present. The wou nd measures approximately 2.9 x 2.3 cm. Granulation tissue is present within the wound margins. No purulent drainage is associated with the wound. No erythema of the skin surrounding the wound is pre sent. No maceration of the skin of the periwound is noted. No significant edema of the right upper extremity is present on exam today. ASSESSMENT AND PLAN: 1. Multiple skin tears of right upper extremity. As stated above, only one wound remains. Xeroform gauze, Webril, Colton, and Coban will be applied to the remaining wound today. I will see Ms. Dickinson marc anguiano in 1 week. 2. Chronic bronchitis. 3. Chronic obstructive pulmonary disease. 4. Bronchiectasis. 5. History of breast carcinoma. 6. Chronic anemia. 7. History of cerebrovascular accident. 8. Coronary artery disease. 9. History of aortic stenosis, status post TAVR. 10. Surgical hypothyroidism following adenocarcinoma of the thyroid with modified radical neck disse ction. 11. Warthin's tumor of right parotid. 12. Atrial fibrillation. 13. Gout. 14. Osteoporosis. 15. Hypertension.
== END 2017-11-04 10:18 | disposition home or self-care (01) ==
LOC: WCC 10:17
PROVIDERS: ATTEND Family Medicine
DX: S41.111D Laceration without foreign body of right upper arm, subsequent encounter (principal); J44.9 Chronic obstructive pulmonary disease, unspecified; J47.9 Bronchiectasis, uncomplicated; D64.9 Anemia, unspecified; I25.10 Atherosclerotic heart disease of native coronary artery without angina pectoris; D11.0 Benign neoplasm of parotid gland; I48.91 Unspecified atrial fibrillation; M10.9 Gout, unspecified; M81.0 Age-related osteoporosis without current pathological fracture; I10 Essential (primary) hypertension; Z86.73 Personal history of transient ischemic attack (TIA), and cerebral infarction without residual deficits; Z95.2 Presence of prosthetic heart valve
CPT/HCPCS: 97602

== ENCOUNTER 2017-11-12 10:15 | Outpatient (CLI) | payer MEDICARE ==
--- NOTE | 2017-11-12 11:34 | PRG ---
DATE OF SERVICE: 11/12/2017 HISTORY: Ms. Candie Dickinson is a very pleasant 86-year-old who presents to the Wound Center for evaluatio n of multiple skin tears of the right upper extremity subsequent to a fall on 09/30/2017. The patien t stumbled and fell on her way to the hospital for admission for IV antibiotics. The patient's wound s were dressed at [facility] on the day of admission, the following day and on the day of discharge on 10/03/2017. After being seen in the Wound Center on 10/07/2017, the patient has been receiving weekly dressing changes of Xeroform gauze, Webril, Colton and Coban here in the Woun d Center. PHYSICAL EXAMINATION: VITAL SIGNS: Temperature 98.2, pulse 85, respirations 22, blood pressure 159/63. EXTREMITIES: Only one wound of the right forearm over the dorsum of the forearm is present. The wou nd measures approximately 1.7 x 2.0 cm. Granulation tissue is present within the wound margins. No purulent drainage is associated with the wound. No erythema of the skin surrounding the wound is pre sent. No maceration of the skin of the periwound is noted. No significant edema of the right upper extremity is present on exam today. ASSESSMENT AND PLAN: 1. Multiple skin tears of right upper extremity. As stated above, only one wound remains. Xeroform gauze, Webril and Coban will be applied to the remaining wound today. I will see Ms. Dickinson again in 1 week. 2. Chronic bronchitis. 3. Chronic obstructive pulmonary disease. 4. Bronchiectasis. 5. History of breast carcinoma. 6. Chronic anemia. 7. History of cerebrovascular accident. 8. Coronary artery disease. 9. History of aortic stenosis, status post TAVR. 10. Surgical hypothyroidism following adenocarcinoma of the thyroid with modified radical neck disse ction. 11. Warthin's tumor of right parotid. 12. Atrial fibrillation. 13. Gout. 14. Osteoporosis. 15. Hypertension.
== END 2017-11-12 10:16 | disposition home or self-care (01) ==
LOC: WCC 10:15
PROVIDERS: ATTEND Family Medicine
DX: S51.811D Laceration without foreign body of right forearm, subsequent encounter (principal); J47.9 Bronchiectasis, uncomplicated; J44.9 Chronic obstructive pulmonary disease, unspecified; I25.10 Atherosclerotic heart disease of native coronary artery without angina pectoris; D11.0 Benign neoplasm of parotid gland; C73 Malignant neoplasm of thyroid gland; I48.91 Unspecified atrial fibrillation; M10.9 Gout, unspecified; M81.0 Age-related osteoporosis without current pathological fracture; I10 Essential (primary) hypertension; D64.9 Anemia, unspecified; E89.0 Postprocedural hypothyroidism; Z86.73 Personal history of transient ischemic attack (TIA), and cerebral infarction without residual deficits; Z85.3 Personal history of malignant neoplasm of breast; Z95.2 Presence of prosthetic heart valve
CPT/HCPCS: 97602

== ENCOUNTER 2017-11-19 11:28 | Outpatient (CLI) | payer MEDICARE ==
--- NOTE | 2017-11-19 11:38 | PRG ---
DATE OF SERVICE: 11/19/2017 HISTORY: Ms. Candie Dickinson is a very pleasant 87-year-old who presents to the Wound Center for evaluatio n of multiple skin tears of the right upper extremity, subsequent to a fall on 09/30/2017. The patie nt stumbled and fell on her way to the hospital for admission for IV antibiotics. The patient's woun ds were dressed at [facility] on the day of admission, the following day and o n the day of discharge on 10/03/2017. After being seen in the Wound Center on 10/07/2017, the patien rekha has been receiving weekly dressing changes here in the Wound Center. PHYSICAL EXAMINATION: VITAL SIGNS: Temperature 97.6, pulse 106, respirations 22, blood pressure 151/58. EXTREMITIES: Only one wound of the right forearm over the dorsum of the forearm is present. The wou nd measures approximately 1.0 x 1.0 cm. Granulation tissue is present within the wound margins. No purulent drainage is associated with the wound. No erythema of the skin surrounding the wound is pre sent. No maceration of the skin of the periwound is noted. No significant edema of the right upper extremity is present on exam today. ASSESSMENT AND PLAN: 1. Multiple skin tears of right upper extremity. As stated above, only one wound remains. Xeroform gauze, Webril, and Coban will be applied to the remaining wound again today. I will see Ms. Dickinson a gain in 1 week. 2. Chronic bronchitis. 3. Chronic obstructive pulmonary disease. 4. Bronchiectasis. 5. History of breast carcinoma. 6. Chronic anemia. 7. History of cerebrovascular accident. 8. Coronary artery disease. 9. History of aortic stenosis, status post TAVR. 10. Surgical hypothyroidism following adenocarcinoma of the thyroid with modified radical neck disse ction. 11. Warthin's tumor of right parotid. 12. Atrial fibrillation. 13. Gout. 14. Osteoporosis. 15. Hypertension.
== END 2017-11-19 11:29 | disposition home or self-care (01) ==
LOC: WCC 11:28
PROVIDERS: ATTEND Family Medicine
DX: S51.811D Laceration without foreign body of right forearm, subsequent encounter (principal); J42 Unspecified chronic bronchitis; J47.9 Bronchiectasis, uncomplicated; I25.10 Atherosclerotic heart disease of native coronary artery without angina pectoris; E89.0 Postprocedural hypothyroidism; D11.0 Benign neoplasm of parotid gland; I48.91 Unspecified atrial fibrillation; M10.9 Gout, unspecified; M81.0 Age-related osteoporosis without current pathological fracture; I10 Essential (primary) hypertension; D63.0 Anemia in neoplastic disease; Z86.73 Personal history of transient ischemic attack (TIA), and cerebral infarction without residual deficits; Z85.850 Personal history of malignant neoplasm of thyroid; Z92.3 Personal history of irradiation; Z95.2 Presence of prosthetic heart valve; Z85.3 Personal history of malignant neoplasm of breast
CPT/HCPCS: 97602

== ENCOUNTER 2017-11-26 10:54 | Outpatient (CLI) | payer MEDICARE ==
--- NOTE | 2017-11-26 11:34 | PRG ---
DATE OF SERVICE: 11/26/2017 HISTORY: Ms. Candie Katz is a very pleasant 87-year-old who presents to the Wound Center for evaluatio n of multiple skin tears of the right upper extremity, subsequent to a fall on 09/30/2017. The patie nt stumbled and fell on her way to the hospital for admission for IV antibiotics. The patient's woun ds were dressed at [facility] on the day of admission the following day and on the day of discharge on 10/03/2017. After being seen in the Wound Center on 10/07/2017, patient has been receiving weekly dressing changes here in the Wound Center. PHYSICAL EXAMINATION: VITAL SIGNS: Temperature 97.5, pulse 88, respirations 20, blood pressure 137/61. EXTREMITIES: Only one wound of the right forearm over the dorsum of the forearm is present. The wou nd measures approximately 0.4 x 0.3 cm. Granulation tissue is present within the wound margins. No purulent drainage is associated with the wound. No erythema of the skin surrounding the wound is pre sent. No maceration of the skin of the periwound is noted. No significant edema of the right upper extremity is present on exam today. ASSESSMENT AND PLAN: 1. Multiple skin tears of right upper extremity. As stated above, only one wound remains. Xeroform gauze, Webril, and Coban will be applied to the remaining wound today. I will see Ms. Dickinson again i n one week. 2. Chronic bronchitis. 3. Chronic obstructive pulmonary disease. 4. Bronchiectasis. 5. History of breast carcinoma. 6. Chronic anemia. 7. History of cerebrovascular accident. 8. Coronary artery disease. 9. History of aortic stenosis, status post TAVR. 10. Surgical hypothyroidism following adenocarcinoma of the thyroid with modified radical neck disse ction. 11. Warthin's tumor of right parotid. 12. Atrial fibrillation. 13. Gout. 14. Osteoporosis. 15. Hypertension.
== END 2017-11-26 10:55 | disposition home or self-care (01) ==
LOC: WCC 10:54
PROVIDERS: ATTEND Family Medicine
DX: S61.411D Laceration without foreign body of right hand, subsequent encounter (principal); J47.9 Bronchiectasis, uncomplicated; D64.9 Anemia, unspecified; Z86.73 Personal history of transient ischemic attack (TIA), and cerebral infarction without residual deficits; I25.10 Atherosclerotic heart disease of native coronary artery without angina pectoris; E89.0 Postprocedural hypothyroidism; D11.0 Benign neoplasm of parotid gland; I48.91 Unspecified atrial fibrillation; M10.9 Gout, unspecified; M81.0 Age-related osteoporosis without current pathological fracture; I10 Essential (primary) hypertension; Z85.850 Personal history of malignant neoplasm of thyroid; Z85.3 Personal history of malignant neoplasm of breast; Z95.2 Presence of prosthetic heart valve
CPT/HCPCS: 97602

== ENCOUNTER 2017-12-02 10:50 | Outpatient (CLI) | payer MEDICARE ==
--- NOTE | 2017-12-02 12:32 | PRG ---
DATE OF SERVICE: 12/02/2017 HISTORY: Ms. Candie Dickinson is a very pleasant 87-year-old who presents to the Wound Center for evaluatio n of multiple skin tears of the right upper extremity, subsequent to a fall on 09/30/2017. The patie nt stumbled and fell on her way to the hospital for admission for IV antibiotics. The patient's woun ds were dressed at [facility] on the day of admission, the following day, and on the day of discharge on 10/03/2017. After being seen in the Wound Center on 10/07/2017, the patie nt has been receiving dressing changes on a weekly basis here in the Wound Center. PHYSICAL EXAMINATION: VITAL SIGNS: Temperature 97.8, pulse 97, respirations 22, blood pressure 154/69. EXTREMITIES: Only one wound of the right forearm over the dorsum of the forearm is present. The wou nd measures approximately 0.8 x 0.8 cm. Granulation tissue is present within the wound margins. No purulent drainage is associated with the wound. No erythema of the skin surrounding the wound is pre sent. No maceration of the skin of the periwound is noted. No significant edema of the right upper extremity is present on exam today. ASSESSMENT AND PLAN: 1. Multiple skin tears of right upper extremity. As stated above, only one wound remains. Xeroform gauze, Webril, and Coban will be applied to the remaining wound again today. The patient has been i nstructed to discontinue the dressings applied in clinic today in one week. At this time, any open w ound is to be dressed with Mepilex border if present. The patient understands and is in agreement wi th the preceding treatment plan. Ms. Dickinson will be discharged from clinic today with followup on a p .r.n. basis. 2. Chronic bronchitis. 3. Chronic obstructive pulmonary disease. 4. Bronchiectasis. 5. History of breast carcinoma. 6. Chronic anemia. 7. History of cerebrovascular accident. 8. Coronary artery disease. 9. History of aortic stenosis, status post TAVR. 10. Surgical hypothyroidism following adenocarcinoma of the thyroid with modified radical neck disse ction. 11. Warthin's tumor of right parotid. 12. Atrial fibrillation. 13. Gout. 14. Osteoporosis. 15. Hypertension.
[2017-12-02] MEDS ORDERED: Sodium Chloride 0.9% 15 ML NEB ONE (16:39)
== END 2017-12-02 10:51 | disposition home or self-care (01) ==
LOC: WCC 10:50
PROVIDERS: ATTEND Family Medicine
DX: S51.801D Unspecified open wound of right forearm, subsequent encounter (principal); J42 Unspecified chronic bronchitis; J47.9 Bronchiectasis, uncomplicated; D53.9 Nutritional anemia, unspecified; I25.10 Atherosclerotic heart disease of native coronary artery without angina pectoris; I48.91 Unspecified atrial fibrillation; M81.0 Age-related osteoporosis without current pathological fracture; M10.9 Gout, unspecified; I10 Essential (primary) hypertension; E89.0 Postprocedural hypothyroidism; Z85.3 Personal history of malignant neoplasm of breast; Z86.73 Personal history of transient ischemic attack (TIA), and cerebral infarction without residual deficits; Z85.850 Personal history of malignant neoplasm of thyroid; Z86.79 Personal history of other diseases of the circulatory system; Z95.2 Presence of prosthetic heart valve
CPT/HCPCS: A4218

== ENCOUNTER 2018-02-23 13:24 | Emergency (ER) | payer MEDICARE ==
[2018-02-23] MEDS ORDERED: Acetaminophen/Codeine 30-300mg Tablet ONE (13:37)
--- NOTE | 2018-02-23 14:08 | RAD ---
LEFT SHOULDER THREE VIEWS: HISTORY: Fall from standing. COMPARISON: None. FINDINGS: There is a left distal clavicular fracture. Old humeral neck fracture. Osteophyte formation of the humeral neck with osseous remodeling. Central venous catheter is in place with the tip at the mid SV C. There appears to be aortic valve replacement. IMPRESSION: Likely a left distal clavicular fracture. POS: [facility]
== END 2018-02-23 14:40 | disposition home or self-care (01) ==
LOC: ERS 13:24
DX: S42.032A Displaced fracture of lateral end of left clavicle, initial encounter for closed fracture (principal); S51.012A Laceration without foreign body of left elbow, initial encounter; I25.10 Atherosclerotic heart disease of native coronary artery without angina pectoris; Z86.73 Personal history of transient ischemic attack (TIA), and cerebral infarction without residual deficits; J44.9 Chronic obstructive pulmonary disease, unspecified; Z87.891 Personal history of nicotine dependence; Z79.899 Other long term (current) drug therapy; Z79.82 Long term (current) use of aspirin; W17.89XA Other fall from one level to another, initial encounter

== ENCOUNTER 2018-03-31 19:31 | Inpatient (IN) | payer MEDICARE ==
[2018-03-31 20:35] LABS: Bilirubin Negative (Negative); Blood, Urine Large (Negative); Clarity CLOUDY (Clear); Glucose, Urine (Dipstick) Negative (Negative); Leukocyte Negative (Negative); Nitrite Negative (Negative); Protein, Urine (Dipstick) 30 mg/dL (Neg-Trace); Specific Gravity, Urine 1.004 (1.002-1.036); Urobilinogen 0.2 mg/dL (0.2-1.0); pH, Urine 5.5 (5.0-9.0)
[2018-03-31 20:37] LABS: Bacteria/HPF None Seen HPF (None Seen); Hyaline Casts/LPF 0-3 HYALINE CAST LPF (0-3 Hyaline); Pathc Cast-AUWi Flag 0.29 (0-2.49); Squamous Epithelial None Seen HPF (0-3); WBC/HPF 0-3 HPF (0-3)
[2018-03-31 21:08] LABS: #Eosinphils 0.1 thou/uL (0.0-0.7); #Lymphocytes 0.6 thou/uL (1.20-3.40); #Monocytes 0.4 thou/uL (0.11-0.59); #Neutrophils 5.2 thou/uL (1.40-6.50); %Basophils 0.4 % (0.0-1.0); %Eosinophils 1.7 % (0.0-10.0); %Lymphocytes 8.9 % (21.0-51.0); %Monocytes 6.8 % (0.0-10.0); %Neutrophils 82.2 % (42.0-75.0); Hemoglobin 10.3 g/dL (12.0-16.0); MDiff Complete? YES; Macrocytosis MODERATE=16-30 cells (100X) (0-5/hpf); Mean Corpuscular HGB CONC 33.4 g/dL (32.0-36.0); Mean Corpuscular Hemoglobin 40.6 pg (27.0-31.0); Mean Platelet Volume 9.2 fL (7.4-10.4); Platelet Count 272 thou/uL (130-400); Red Blood Cell (RBC) Count 2.53 mill/uL (4.20-5.40); White Blood Cell (WBC) Count 6.3 thou/uL (4.8-10.8)
[2018-03-31 21:09] LABS: ALT (SGPT) 13 U/L (8-55); AST (SGOT) 26 U/L (5-34); Albumin 3.7 g/dL (3.4-4.8); Alkaline Phosphatase 109 U/L (40-150); Anion Gap 18 mmol/L (10-20); BUN (Urea Nitrogen) 29 mg/dL (9.8-20.1); Bilirubin, Total 0.9 mg/dL (0.2-1.2); Calc. Creatinine Clearance 0 mL/min (70-130); Calcium 8.5 mg/dL (7.8-10.44); Carbon Dioxide 19 mmol/L (23-31); Chloride 86 mmol/L (98-107); Estimated GFR-MDRD 69; Globulin 2.7 g/dL (2.4-3.5); Glucose 153 mg/dL (83-110); Potassium 4.5 mmol/L (3.5-5.1); Protein, Total 6.4 g/dL (6.0-8.3)
[2018-03-31 21:18] LABS: Sodium 118 mmol/L (136-145)
[2018-03-31 21:31] LABS: CKMB 3.1 ng/mL (0-6.6)
--- NOTE | 2018-03-31 21:53 | RAD ---
SINGLE UPRIGHT PORTABLE CHEST: 03/31/18 HISTORY: 87-year-old female with history of dyspnea, difficulty urinating. No fever. COMPARISON: 09/17/17. There is rotation to the left. Left subclavian catheter and injection port. Transcatheter valvular re placement. Cardiomegaly with bilateral vascular congestion and bilateral pleural effusions. The conge stion appears to be somewhat worse than on the prior study with possible mild or early acute edema. N o confluent pneumonia. IMPRESSION: Cardiomegaly with vascular congestion and small pleural effusions with some progressive vascular melvi estion from the prior and possible mild or early interstitial edema with potentially some component o f congestive heart failure. No confluent lobar pneumonia. Continued short term followup for clearing or stability. POS: [facility]
[2018-03-31] MEDS ORDERED: Lorazepam 2 MG/ML VIAL ONE (21:56)
[2018-03-31] MEDS ORDERED: cefTRIAXone\\ROCEPHIN 2 GM VIAL ONE (22:11)
--- NOTE | 2018-03-31 22:14 | CT ---
BRAIN CT WITHOUT IV CONTRAST: 03/31/18 HISTORY: 87-year-old female with history of altered mental status, multiple complaints. Motion artifact through the lower skull base regions which certainly lowers the sensitivity of the st udy in this region. 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 There is some atrophy and chronic white ma tter ischemic change noted bilaterally. No focal mass or midline shift. 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 Atrophy and chronic white matter ischemic reyes e. No mass, bleed or other significant acute process. POS: CHANDAN
--- NOTE | 2018-03-31 22:20 | CT ---
ABDOMEN AND PELVIC CT SCAN WITHOUT IV CONTRAST: 03/31/18 HISTORY: 87-year-old female with history of abdominal pain. Difficulty urinating, dyspnea, mental status reyes e. Small bilateral pleural effusions, slightly larger on the right side with some pleural based parenchy mal changes evidence for some subsegmental atelectasis. There is considerable motion artifact particu larly through the lower chest and upper abdomen region which considerably lowers the sensitivity of t his study. Small focal hypodensity in the right lobe of the liver statistically a small cyst. The vis ualized gallbladder, pancreas, and spleen appear unremarkable. Somewhat poorly circumscribed 2 cm jessica meter low density in the right kidney indeterminate from this study since this is an area of motion a rtifact but could represent a cyst but is not adequately characterized. Moderate amount of gas and fl uid within a moderately distended stomach. No significant free intraperitoneal fluid. No abscess, vik nopathy, or abnormal fluid collection. There is some renal vascular calcifications but no evidence fo r acute obstruction. Unremarkable urinary bladder. Small fat containing left inguinal hernia. Smal l calcifications within the uterus, evidence for small uterine fibroids. IMPRESSION: Motion artifact which limits sensitivity of this study. Small pleural effusions/pleural reaction ku ges right greater than left with some pleural based parenchymal changes, probably some subsegmental a telectasis. 2 cm diameter hypodense focus in the right kidney inadequately characterized, possibly a cyst. Borderline distended stomach with gas and fluid. Small left inguinal fat containing hernia. Sma ll uterine calcifications, evidence for uterine fibroids. No evidence for other significant acute pro cess. POS: RICHMOND
[2018-03-31] MEDS ORDERED: Cyclobenzaprine 10 MG TAB PO PRN (23:11)
[2018-03-31] MEDS ORDERED: Acetaminophen 325 MG TAB PO PRN (23:13)
[2018-03-31] MEDS ORDERED: Senokot S 8.6-50 MG TAB PO PRN (23:13)
[2018-03-31] MEDS ORDERED: Zolpidem Tartrate 5 MG TAB PO PRN (23:13)
[2018-03-31] MEDS ORDERED: Bisacodyl 5 MG TAB PO PRN (23:13)
[2018-03-31] MEDS ORDERED: Nitroglycerin 0.4 MG TAB (25 Tab Bottle) SL SCH (23:15)
[2018-03-31] MEDS ORDERED: Sodium Chloride 0.9% 1,000 ML IV SCH (23:15)
[2018-03-31] MEDS ORDERED: Aspirin 300 MG Suppository ONE ×2 (23:32→23:34)
[2018-04-01 00:35] LABS: Osmolality, Urine 173 mOsm/kg (300-900)
[2018-04-01 00:45] LABS: Sodium, Urine 38 mmol/L (Not Available)
[2018-04-01 00:55] VITALS: BMI 25.0
[2018-04-01] MEDS ORDERED: Conivaptan 20 MG in Premix Bag 1 BAG IVPB SCH (01:00)
[2018-04-01 01:07] LABS: Troponin I 0.117 ng/mL (< 0.028)
[2018-04-01 04:45] LABS: Hemoglobin 9.1 g/dL (12.0-16.0); Mean Corpuscular Hemoglobin 38.2 pg (27.0-31.0); Mean Platelet Volume 9.3 fL (7.4-10.4); Platelet Count 243 thou/uL (130-400); RBC Distribution Width 14.6 % (11.5-14.5); Red Blood Cell (RBC) Count 2.37 mill/uL (4.20-5.40)
[2018-04-01 04:58] LABS: Anion Gap 14 mmol/L (10-20); BUN (Urea Nitrogen) 26 mg/dL (9.8-20.1); Calc. Creatinine Clearance 49 mL/min (70-130); Calcium 8.6 mg/dL (7.8-10.44); Carbon Dioxide 25 mmol/L (23-31); Chloride 84 mmol/L (98-107); Estimated GFR-MDRD 68; Glucose 153 mg/dL (83-110); Iron 85 ug/dL (50-170); Iron Binding Capacity, Total 213 mcg/dL (265-497); Potassium 4.9 mmol/L (3.5-5.1)
[2018-04-01 05:00] LABS: Hypochromia SLIGHT = 6-15 cells (100X) (0-5/hpf); Lymphocytes 7 % (21-51); MDiff Complete? YES; Macrocytosis SLIGHT = 6-15 cells (100X) (0-5/hpf); Monocytes 4 % (0-10); Neutrophil 89 % (42-75); PLT Morphology Comment Appears Adequate; Polychromasia SLIGHT = 2-3 cells (100X) (0-2/hpf)
[2018-04-01 05:02] LABS: Sodium 118 mmol/L (136-145)
[2018-04-01 05:28] LABS: Folate (Folic Acid) 15.6 ng/mL (7.0-31.4)
[2018-04-01] MEDS: Liothyronine Sodium 5 MCG TAB PO SCH (05:38)
[2018-04-01] MEDS: Levothyroxine Sodium 100 MCG TAB PO SCH (05:38)
[2018-04-01] MEDS ORDERED: Mometasone/Formoterol 120 PUFF INHALER INH SCH (06:30)
[2018-04-01 06:49] LABS: Sodium 118 mmol/L (136-145)
[2018-04-01] MEDS ORDERED: Sodium Chloride 3% 500 ML IVPB SCH (08:00)
[2018-04-01 08:32] LABS: Anion Gap 14 mmol/L (10-20); BUN (Urea Nitrogen) 27 mg/dL (9.8-20.1); Calc. Creatinine Clearance 45 mL/min (70-130); Calcium 8.9 mg/dL (7.8-10.44); Carbon Dioxide 25 mmol/L (23-31); Chloride 85 mmol/L (98-107); Estimated GFR-MDRD 63; Glucose 143 mg/dL (83-110); Potassium 4.9 mmol/L (3.5-5.1)
[2018-04-01 08:36] LABS: Sodium 119 mmol/L (136-145)
[2018-04-01] MEDS ORDERED: Furosemide 20 MG TAB PO SCH (09:00)
[2018-04-01] MEDS ORDERED: Prevnar 13-Val Conj/PF 0.5 ML SYRINGE IM ONE (09:00)
[2018-04-01] MEDS ORDERED: Enoxaparin Sodium 40 MG/0.4 ML SYRINGE SC SCH (09:00)
[2018-04-01] MEDS ORDERED: Non-Formulary Item 1 EACH (Budesonide-Formoterol [Symbicort 160-4.5] 2 PUFF) INH SCH (09:00)
[2018-04-01] MEDS ORDERED: Non-Formulary Item 1 EACH (Fluticasone/Salmeterol [Advair Diskus 250/50] 1 EACH) IH SCH (09:00)
--- NOTE | 2018-04-01 09:14 | HP ---
CHIEF COMPLAINT: Generalized weakness. HISTORY OF PRESENT ILLNESS: This is an 87-year-old female with past medical history of coronary artery disease, status post stent placement, ischemic cerebrovascular accidents, and chronic obstructive pulmonary disease, presenting with generalized weakness and alteration of awareness. At this point, the patient is altered, so history of present illness was obtained from caregiver. Per caregiver, the patient broke her clavicle a couple of weeks ago and the patient underwent surgery. The patient was doing very well. Per the caregiver, the patient was able to perform activities of daily living on her own and she was doing fairly well until this recent episode of the patient becoming very altered and not being able to function on her own. Of note, the patient was recently in our hospital on 10/07/2017 and during that time, the patient was here in the hospital for evaluation of multiple skin tears of the right upper extremity subsequent to a fall on 09/30/2017. During the time, the patient was continued on antibiotics and the patient was advised to follow up for dressing changes [facility]. REVIEW OF SYSTEMS: Unable to be obtained due to the patient's altered mentation. PAST MEDICAL HISTORY: 1. Chronic bronchitis. 2. COPD. 3. Bronchiectasis. 4. History of breast cancer. 5. Chronic anemia. 6. History of cerebrovascular accident. 7. Coronary artery disease. 8. History of aortic stenosis, status post TAVR. 9. 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 11. Atrial fibrillation. 12. Osteoporosis. 13. Hypertension. 14. Gout. FAMILY HISTORY: Reviewed and noncontributory to the visit. PAST SURGICAL HISTORY: 1. Right shoulder surgery. 2. Thyroid surgery. 3. Bilateral cataract surgery. 4. Lumpectomy in conjunction with chemotherapy and radiation therapy. 5. Carpal tunnel release. 6. Umbilical hernia repair. 7. Ex lap. 8. D and C x2. 9. Appendectomy. 10. Oral surgery. SOCIAL HISTORY: Significant for tobacco use from the age of 16 until the patient was 80. The patient used to smoke about 3 packs of cigarettes a day. The patient stopped smoking about 10 years ago. ALLERGIES: THE PATIENT IS ALLERGIC TO SULFA. FAMILY HISTORY: Reviewed and nonsignificant to this visit. PHYSICAL EXAMINATION: VITAL SIGNS: The patient's blood pressure is 139/98, pulse of 88, respiratory rate of 31, and O2 saturation of 98% on BiPAP. GENERAL: The patient is lying in bed with BiPAP machine on. The patient is currently altered. Alert, and oriented x0. HEENT: Normocephalic and atraumatic. Pupils are equal, round, and reactive to light. Extraocular movements are intact. No scleral icterus. NECK: Trachea is midline. No JVD. Supple. LUNGS: The patient has diffuse bilateral wheezes at the anterior lung azar and BiPAP lung sounds can be heard at the anterior lung azar. CARDIAC: Positive S1 and S2. Regular rate and rhythm. No murmurs. No gallops. No rubs appreciated. ABDOMEN: Soft, nontender, and nondistended. Positive bowel sounds in all quadrants. EXTREMITIES: The patient has 5/5 upper extremity strength and 5/5 lower extremity strength with good radial pulses bilaterally at the upper and lower extremities. DIAGNOSTIC DATA: EKG showed normal sinus rhythm at a rate of 94. CT of the head without contrast is negative. There is no bleed, no mass, no acute changes. There is an old stroke of the left MCA and atrophy. Chest x-ray showed mild interstitial edema, small pleural effusions. No confluent pneumonia noted. Abdomen; there are some small pleural effusions on the lungs, right kidney cyst. There is small fat containing hernia. LABORATORY DATA: WBC 6.3, hemoglobin is 10.3, MCV is 121, and RDW is 15.0. Electrolytes; sodium is 118, potassium is 4.5, chloride is 86, carbon dioxide of 19, anion gap of 18, BUN is 29, and creatinine is 0.79. Serum osmolality is 264. Iron is 85, TIBC 213. AST 26 and ALT 13. Ammonia level was 29. Troponin 0.059 and second troponin is increased to 0.160. BNP is 296. TSH is 0.0140, T4 is 1.28, B12 is 341, folate is 15. Cortisol levels 22.20 and an a.m. cortisol level is 14.20. ASSESSMENT AND PLAN: This is an 87-year-old female presenting with; 1. Symptomatic hyponatremia. At this point, the patient's sodium is 118. We have consulted Nephrology. The patient will benefit from hypertonic saline. We will follow up with what Nephrology's recommendations are. We are going to admit the patient to the ICU and we will monitor the patient closely. We will follow up on sodium every 4 hours. Our goal for sodium is between 4 to 6 mEq in 24 hours, increase. 2. Acute respiratory failure, hypoxemic. The patient is having increased respirations, and at this point, we have started the patient on BiPAP. We will continue to monitor the patient's respirations closely and we will continue to manage the patient appropriately. 3. Elevated troponins. Currently, the patient's troponin is indeterminate. We will continue to trend the patient's troponins. If the patient's troponins continue to trend up, then we will consider Cardiology consult. 4. Chronic obstructive pulmonary disease exacerbation. Currently, the patient is on BiPAP. We will continue the patient on BiPAP. 5. Chronic microcytic anemia. The patient was being followed by Dr. Ha in the past. At this point, we will continue the patient on current management. 6. Deep venous thrombosis and gastrointestinal prophylaxis. Critical care time was greater than 70 minutes. Job ID: [id number]
[2018-04-01] MEDS: Allopurinol 300 MG TAB PO SCH (09:30)
[2018-04-01] MEDS: Multivitamin W/ Minerals 1 TAB PO SCH (09:30)
[2018-04-01] MEDS: Lisinopril 10 MG TAB PO SCH (09:30)
[2018-04-01] MEDS: Famotidine 20 MG TAB PO SCH (09:30)
[2018-04-01] MEDS: Clopidogrel Bisulfate 75 MG TAB PO SCH (09:30)
[2018-04-01 10:57] LABS: Sodium 118 mmol/L (136-145)
[2018-04-01] MEDS: Vit A,C & E/Lutein/Minerals Tablet PO SCH ×2 (11:35→21:46)
[2018-04-01] MEDS: Famotidine/PF 20 mg/2ml Vial SLOW IVP SCH (11:39)
[2018-04-01] MEDS ORDERED: Ketorolac Tromethamine 30 MG/ML VIAL IVP SCH (12:30)
--- NOTE | 2018-04-01 13:30 | PRG ---
DATE OF SERVICE: 04/01/2018 SUBJECTIVE: The patient is seen and examined at bedside. Her daughter is in the room. I had a long discussion with her regarding her mother's condition and current findings. Also, I spoke with a patient's son who is PASTE UP WORKER in [facility] and I informed him about recurrent condition. The patient is on BiPAP. She is quite comatose. Apparently, she had two doses of Ativan 0.5 mg IV push for agitation during her emergency room visit last night. OBJECTIVE: VITAL SIGNS: Blood pressure is 166/54, pulse is 73, temperature is 98.6, respiratory rate is 23, O2 saturation 100%. HEENT: Her head is atraumatic and normocephalic. She is arousable, but she is comatose. She falls back to sleep quickly. She does not follow my commands, which is caused by her comatose state. LUNGS: She has diminished breath sounds at both bases with bilateral crackles present mostly in the lower parts. A few wheezes bilaterally. HEART: S1 and S2, somewhat irregular. No S3. No S4. ABDOMEN: Soft, nontender, nondistended. Bowel sounds are present. No organomegaly. EXTREMITIES: No clubbing, cyanosis, or edema. NEUROLOGIC: She is very comatose at the time of my evaluation that is secondary from Ativan use, and she will be evaluated neurologically after this wore off. LABORATORY DATA: White count of 5.0, hemoglobin 9.1, hematocrit 28.3, platelet count is 243, neutrophils 89%. Chemistry showed sodium of 118, potassium 4.9, chloride 84, CO2 of 25, BUN 26, creatinine 0.85. Glycemia is ranging from 143 to 153. Serum osmolality was 264. Her calcium was 8.9. Iron was 85 and total iron-binding capacity was 213. Troponin I was 0.160. Vitamin B12 was 341. Folic acid 15.6. Free T4 was 1.28. TSH was suppressed at 0.014 and a cortisol was 14.2 the studies from last night. IMPRESSION: 1. Respiratory failure, most likely is secondary to chronic obstructive pulmonary disease exacerbation. The patient had 2 g of Rocephin last night in the emergency room. We will switch her to levofloxacin. The case was discussed with Dr. Ibarra, who is on-call for Pulmonary Services/Critical Care, and we will start her also on Solu-Medrol 40 mg every 6 hours IV push. We will continue DuoNeb and BiPAP, and Dr. Ibarra will manage her pulmonary status. 2. 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 Montes, who is on the case. We will continue her sodium closely. We will try to increase her sodium level very gradually. Her altered mental status and agitation could be related to her hyponatremia. 3. Chronic microcytic anemia with low vitamin B12 level. We will start her on B12 injections 1 mg IM today and then daily. Her folic acid is within normal limits. 4. Elevated troponins. This is mild elevation and does not require a further intervention or diagnostic workup. 5. Hematuria. Per the family member's information, this is going to be checked when her pulmonary/general status improves. She might have to be evaluated by urologist later on. Also, I am going to start her on some Toradol IV push. Apparently she had some fractured clavicle recently. 6. Hypothyroidism, on replacement. 7. Hypertension. Blood pressure is controlled, and we are going to continue her Plavix use. Job ID: [id number]
[2018-04-01 15:11] LABS: Anion Gap 12 mmol/L (10-20); BUN (Urea Nitrogen) 25 mg/dL (9.8-20.1); Calc. Creatinine Clearance 48 mL/min (70-130); Calcium 8.7 mg/dL (7.8-10.44); Carbon Dioxide 24 mmol/L (23-31); Chloride 90 mmol/L (98-107); Estimated GFR-MDRD 68; Glucose 130 mg/dL (83-110); Sodium 121 mmol/L (136-145)
[2018-04-01] MEDS ORDERED: Furosemide 40 MG/4 ML VIAL SLOW IVP SCH (16:30)
[2018-04-01 20:39] LABS: Anion Gap 13 mmol/L (10-20); BUN (Urea Nitrogen) 27 mg/dL (9.8-20.1); Calc. Creatinine Clearance 40 mL/min (70-130); Calcium 8.8 mg/dL (7.8-10.44); Carbon Dioxide 23 mmol/L (23-31); Chloride 92 mmol/L (98-107); Estimated GFR-MDRD 55; Glucose 155 mg/dL (83-110); Potassium 4.8 mmol/L (3.5-5.1); Sodium 123 mmol/L (136-145)
[2018-04-01] MEDS: Magnesium Oxide 400 MG TAB PO SCH (21:46)
--- NOTE | 2018-04-01 22:59 | CON ---
DATE OF CONSULTATION: CONSULTING PHYSICIAN: Jyoti Keen MD REPORTING PHYSICIAN: Car Holcomb DO REASON FOR CONSULTATION: Severe symptomatic hyponatremia. IMPRESSION: 1. Severe hyponatremia, query cause. Going by the history, this is likely dilutional hyponatremia compounded by poor osmolar intake that has gotten progressively worse to the point of neurologic involvement. However, I cannot completely rule out SIADH, that was less likely going by this history. 2. History of convulsion. This is likely part of the symptoms of the hyponatremia. PLAN: 1. Urine chemistry that was sent to rule out SIADH clearly suggest dilutional hyponatremia versus poor osmolar intake, hypoosmolar hyponatremia. 2. Given the symptomatic nature of this case in the setting that the patient already had the convulsion, we will guide and start this patient on hypertonic saline, and once the sodium level has gotten up to 125, we will make a decision on increased osmolar intake in the way of increasing proteins plus animal meat and we will reduce the amount of free water this patient gulps until things are stabilized. HISTORY: This is an 87-year-old female patient, brought in because of generalized weakness. The patient could not offer much of any history due to the mental status change. The patient while hospitalized was noted to have convulsions. Clinical evaluation revealed a sodium of 118, decision is being taken to involve Renal in the management of this case. PAST MEDICAL HISTORY: Significant for COPD, bronchiectasis, history of breast cancer, anemia, CVA, coronary artery disease, aortic stenosis, hypothyroidism, Warthin's tumor, atrial fibrillation, osteoporosis, hypertension, and gout. MEDICATIONS: Reviewed and as documented. REVIEW OF SYSTEMS: Could not be obtained given the mental status of this patient. PHYSICAL EXAMINATION: VITAL SIGNS: The patient was found to be out with the following vital signs: Afebrile, temperature 98.6, pulse 73, respiratory rate of 23, O2 sat of 100% on BiPAP. Blood pressure 160/74. HEENT EXAMINATION: Unremarkable. CARDIOVASCULAR: First and second heart sounds were heard. RESPIRATORY: Revealed transmitted sounds. EXTREMITIES: No significant peripheral edema. SUMMARY: 87-year-old female patient was brought in with mental status change and noted to be severely hyponatremic. Thank you for this consultation. We will follow with you. Job ID: [id number]
--- NOTE | 2018-04-01 23:02 | CON ---
DATE OF CONSULTATION: 04/01/2018 SERVICE: Pulmonary Medicine. REASON FOR CONSULTATION: ICU patient. HISTORY OF PRESENT ILLNESS: The patient is an 87-year-old white female. She was in her usual state of health until a couple of days ago when she started having symptoms that could have been consistent with urinary tract infection. Her urine output dropped off a little bit. As such, she started pounding cupful after cupful of water. Her provider was there and witnessed the entire events. She started developing some confusion as of yesterday. EMS Services were called because of an altered mentation. That being said, she did not have any shortness of breath until shortly after EMS Services arrived. She started becoming hypoxemic. Ultimately , she was placed on some oxygen, which she failed. They put her on noninvasive ventilation. She is currently encephalopathic. When you ask her to do things, she will wake up, she will look at you and she will attend. That being said, she does not follow any commands and appears to be slightly agitated. She is moving all 4 extremities. She is moving both arms and both legs, and demonstrates fairly decent strength. I have no reports of fevers or chills. I have no reports of nausea, vomiting, diarrhea; hot, red, or swollen joints, or rashes. PAST MEDICAL HISTORY: 1. COPD. 2. Bronchiectasis. 3. Breast cancer. 4. History of CVA. 5. Coronary artery disease. 6. Hypothyroidism. 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 8. Osteoporosis. 9. Hypertension. 10. Gout. PAST SURGICAL HISTORY: 1. TAVR. 2. Hrtv-i-gnrpjhax placement to the left subclavian vein. 3. Radiation to the neck for thyroid lesion. 4. Right shoulder surgery. 5. Bilateral cataract surgery. 6. Lumpectomy with subsequent chemo and radiation for breast cancer. 7. Carpal tunnel surgery. 8. Umbilical hernia repair. 9. Exploratory laparotomy. 10. Dilation and curettage x2. 11. Appendectomy. 12. Mouth surgery. SOCIAL HISTORY: She smoked 3 packs a day for greater than 40 years. She has been without cigarettes for over 10 years now. She denies any significant tobacco or illicit drug use. There is no reports of exposure to chemicals, dust, asbestos , or tuberculosis. FAMILY HISTORY: Noncontributory. ALLERGIES: SULFA. MEDICATIONS: List of her inpatient medications was reviewed. No specific updates were made at this time. REVIEW OF SYSTEMS: This cannot be obtained as the patient is currently encephalopathic. PHYSICAL EXAMINATION: VITAL SIGNS: Afebrile, pulse 73, blood pressure 166/54, respirations 23, and saturation 100% on BiPAP. Currently, I have turned her FiO2 down to 23%. HEENT: Normocephalic and atraumatic. Sclerae white. Conjunctivae pink. Oral mucosa is moist without lesions. LUNGS: Extensive crackles are present. There is a prolonged expiratory phase, but I really do not hear a lot of wheezing. Rhonchi is noted. HEART: Normal rate. Regular. ABDOMEN: Soft, nontender, and nondistended. Bowel sounds are positive. MUSCULOSKELETAL: No cyanosis or clubbing. There is a trace pitting in the bilateral lower extremities. NEUROLOGIC: Grossly nonfocal. She is grossly encephalopathic. IMAGING DATA: CT of the abdomen and pelvis demonstrates no acute abdominal issue that would explain what we are seeing here. I looked at the lung windows. She has got small bilateral pleural effusions and interstitial fullness consistent with subtle changes of volume overload. Chest x-ray demonstrates cardiomegaly and vascular congestion with small pleural effusions. CT of the brain demonstrates no acute intracranial abnormality. LABORATORY DATA: WBC 5.0, hemoglobin 9.1, platelets 243,000. Basic metabolic profile is essentially unremarkable. Sodium is uptrending to 121. Urine osmolality is 173. Basic metabolic profile is otherwise unremarkable. ASSESSMENT: 1. Acute hypoxic respiratory failure. 2. Chronic obstructive pulmonary disease with acute exacerbation. 3. Acute on chronic diastolic heart failure. 4. Hyponatremia, exacerbated by excessive free water intake. 5. Metabolic encephalopathy. DISCUSSION AND PLAN: Hopefully, the patient's mentation will improve as the sodium does. Currently, she is a little volume overloaded. As such, I will give her a dose of Lasix. She has already gotten some conivaptan and her sodium is trending back into the normal range. We will put her on a brief course of steroids and give her antibiotics directed at COPD exacerbation. Pulmonary Critical Care will continue to follow along in this location, but Dr. Phelps will resume coverage in the morning given that he has an established relationship with the Alok' family. 70 minutes have been devoted to this patient in various activities. I personally reviewed all imaging studies and laboratory data noted within this document. For fifty percent of this time, I was interacting with the patient at the bedside or coordinating care with the care team. For the remainder of the time I was immediately available to the patient in the hospital unit. Job ID: [id number] MTDD
[2018-04-02 03:35] LABS: Sodium 131 mmol/L (136-145)
[2018-04-02] MEDS: Levothyroxine Sodium 100 MCG TAB PO SCH (06:03)
[2018-04-02] MEDS: Liothyronine Sodium 5 MCG TAB PO SCH (06:03)
[2018-04-02 06:56] LABS: Anion Gap 11 mmol/L (10-20); BUN (Urea Nitrogen) 30 mg/dL (9.8-20.1); Calc. Creatinine Clearance 38 mL/min (70-130); Calcium 8.8 mg/dL (7.8-10.44); Carbon Dioxide 25 mmol/L (23-31); Chloride 101 mmol/L (98-107); Estimated GFR-MDRD 54; Glucose 142 mg/dL (83-110); Potassium 4.3 mmol/L (3.5-5.1); Sodium 133 mmol/L (136-145)
[2018-04-02] MEDS: Furosemide 40 MG/4 ML VIAL SLOW IVP SCH (08:55)
[2018-04-02] MEDS: Lisinopril 10 MG TAB PO SCH (08:57)
[2018-04-02] MEDS: Famotidine/PF 20 mg/2ml Vial SLOW IVP SCH (08:58)
[2018-04-02] MEDS: Vit A,C & E/Lutein/Minerals Tablet PO SCH ×2 (08:58→20:18)
[2018-04-02] MEDS: Famotidine 20 MG TAB PO SCH (08:58)
[2018-04-02] MEDS: Multivitamin W/ Minerals 1 TAB PO SCH (08:58)
[2018-04-02] MEDS: Clopidogrel Bisulfate 75 MG TAB PO SCH (08:58)
[2018-04-02] MEDS: Allopurinol 300 MG TAB PO SCH (08:58)
--- NOTE | 2018-04-02 10:00 | PRG ---
DATE OF SERVICE: 04/02/2018 SUBJECTIVE: The patient is doing well. She has been off the BiPAP. Her hyponatremia has largely corrected. OBJECTIVE: VITAL SIGNS: On exam, temperature is 99.1, pulse 84, respirations 18, and O2 saturation 99% on 2 L. HEENT: Unremarkable. NECK: No JVD. LUNGS: Clear. CARDIAC: S1 and S2. Regular. ABDOMEN: Soft. EXTREMITIES: No edema. LABORATORY DATA: Sodium 133, potassium 4.3, chloride 101, CO2 of 25, BUN 30, creatinine 0.9, and glucose 142. ASSESSMENT: 1. Severe hyponatremia. 2. Chronic obstructive pulmonary disease, which appears to be stable. 3. No evidence of infection. PLAN: I would go ahead and stop the antibiotics. She can move out to the Telemetry floor. It is my hope that she can probably go home tomorrow, if things go well today. Job ID: [id number]
--- NOTE | 2018-04-02 11:48 | PRG ---
DATE OF SERVICE: 04/02/2018 SUBJECTIVE: The patient is seen and examined at bedside. She is on nasal cannula. Her BiPAP mask was taken off yesterday by Dr. Ibarra. She is doing quite well. Her mentation improved to her baseline. Her son flew in from [place] and her daughter is also present in the room during my visit. The patient had breakfast this morning. She tolerated food without any issues. Her respiratory status significantly improved. OBJECTIVE: VITAL SIGNS: Blood pressure is 95/46, pulse is 88, respiratory rate is 18, O2 saturation is 100% on 2 L by nasal cannula. HEENT: Her head is atraumatic and normocephalic. Eyes are PERRLA. Sclerae are nonicteric. CHEST: On left upper chest, she has a MediPort. LUNGS: Somewhat congested in both lower lobes with few crackles bilaterally, no wheezing. HEART: S1 and S2. Slightly tachycardic. No S3. No4. There is a murmur at the left sternal border, 2/6, mostly audible. ABDOMEN: Soft, nontender, and nondistended. Bowel sounds are present. No organomegaly. EXTREMITIES: No clubbing, cyanosis, or edema. NEUROLOGIC: She follows my commands. She moves her all four extremities. There is no any motor deficits. Cranial nerves are intact. LABORATORY DATA: Labs showed a sodium of 133, potassium 4.3, chloride 101, CO2 of 25, BUN 30, creatinine 0.98, glucose 142. Microbiology, none. No testing. IMPRESSION: 1. Respiratory failure. At this point, we think that this was congestive heart failure, diastolic dysfunction secondary to big amount of water intake orally. 2. Hyponatremia secondary again to a big oral free water intake. This is corrected. 3. Chronic macrocytic anemia with low vitamin B12. She was started on B12 injection 1 mg x1. 4. History of congestive heart failure with some evidence of process on the chest x-ray. We will continue her Lasix. 5. Hematuria. The patient is going to be seen by Dr. Pelaez for Urology consultation. 6. Hypothyroidism, on replacement. 7. Hypertension. PLAN: Plan is we are going to hold her Plavix since she has some hematuria, this is microscopic only. We will stop her antibiotic and stop her steroids. We will continue her Lasix and as I mentioned above, she is on B12 at this point supplementation. We will get PT to work with her and she should be able to go home tomorrow. Job ID: [id number]
[2018-04-02] MEDS ORDERED: Cyanocobalamin 1000 MCG/ML VIAL IM SCH (12:00)
[2018-04-02] MEDS: Magnesium Oxide 400 MG TAB PO SCH (20:18)
--- NOTE | 2018-04-02 23:55 | PRG ---
DATE OF SERVICE: 04/02/2018 SUBJECTIVE: The patient is seen and examined, much more alert today, noted with the following vital signs. OBJECTIVE: VITAL SIGNS: Afebrile, temperature 98.4, pulse 87, respiratory rate of 18, O2 saturation of 100%, and blood pressure 102/44. HEENT: Unremarkable. CARDIOVASCULAR: First and second heart sounds were heard. RESPIRATORY: Clear to auscultation. DIGESTIVE SYSTEM: Revealed a benign abdomen with positive bowel sounds. EXTREMITIES: No peripheral edema. SKIN: No new gross rash. LYMPHATICS: No peripheral lymphadenopathy. LABORATORY INVESTIGATION: Significant for sodium of 133. IMPRESSION: Severe symptomatic hyponatremia in the context of excessive free water intake and poor osmolar intake. PLAN: 1. has been discontinued. 2. We will continue renal supportive measures. 3. Increase protein intake . 4. Further management will be dependent on the clinical course. Job ID: [id number]
--- NOTE | 2018-04-03 01:09 | CON ---
DATE OF CONSULTATION: 04/02/2018 TYPE OF CONSULTATION: Urology Inpatient. REASON FOR CONSULTATION: Gross hematuria. HISTORY OF PRESENT ILLNESS: Ms. Dickinson is an 87-year-old female who presented to the [facility] Emergency Department by EMS with altered mental status. The patient began having gross hematuria a few days prior. She began a very large quantity of water intake. In the emergency department, she was encephalopathic. She had severe hyponatremia. She was admitted to the ICU. She require BiPAP and never required intubation. No gross hematuria in the past. Part of the history was obtained from her children. 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 No prior bladder surgeries. She has a 120-pack year smoking history, but quit 10 years ago. She has no other complaints. REVIEW OF SYSTEMS: Cannot be obtained secondary to patient's current condition. PAST MEDICAL HISTORY: 1. COPD. 2. Bronchiectasis. 3. Breast cancer. 4. History of CVA. 5. Coronary artery disease. 6. Hypothyroidism. 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 8. Osteoporosis. 9. Hypertension. 10. Gout. PAST SURGICAL HISTORY: 1. TAVR. 2. Rags-J-ludsomlx placement. 3. Right shoulder surgery. 4. Bilateral cataract surgery. 5. Lumpectomy with chemo and radiation for breast cancer. 6. Carpal tunnel surgery. 7. Umbilical hernia repair. 8. Exploratory laparotomy. 9. Dilation and curettage x2. 10. Appendectomy. 11. Some type of mouth surgery. SOCIAL HISTORY: She smoked 3 packs a day for greater than 40 years. She has been tobacco free for 10 years. FAMILY HISTORY: Noncontributory. MEDICATIONS: A list of her medications, both home medications and inpatient medications were reviewed. There are no changes at this time. PHYSICAL EXAMINATION: VITAL SIGNS: Temperature 98.4, blood pressure 130/60, respirations 18, pulse 87, oxygen saturation 100% on 2 L nasal cannula. GENERAL: She is awake, alert, in no apparent distress. HEENT: Normocephalic and atraumatic. CARDIOVASCULAR: Regular rate and rhythm. PULMONARY: Breathing unlabored. ABDOMEN: Soft, nontender, and nondistended. No masses or organomegaly. No suprapubic tenderness to palpation. No CVA tenderness. GENITOURINARY: Swift catheter in place draining blood-tinged urine with a few small clots in the tubing. EXTREMITIES: Warm and well perfused, no edema. NEUROLOGIC: No focal deficits. RADIOLOGY DATA: CT of the abdomen and pelvis was reviewed. Please see report. There is mild bladder wall thickening not mentioned by the radiologist in the area of the trigone, but no mass or other concerning lesion was identified. LABORATORY DATA: Hemoglobin 9.1, hematocrit 28.3. Sodium 133, potassium 4.3, chloride 101, bicarb 25, BUN 30, creatinine 0.98. ASSESSMENT: An 87-year-old female with hyponatremia and gross hematuria. PLAN: I discussed the natural history and clinical implications of gross hematuria with the patient and her children by telephone. I discussed the potential etiologies including infection, inflammation, stone disease, and malignancy. I reviewed the CT findings with them. I recommended outpatient cystoscopy. Her hematuria is currently not severe enough to warrant urgent evaluation. Her H and H remains stable, and she is otherwise ready for discharge. She can follow up with Urology as an outpatient for cystoscopy. This plan was discussed with the patient and the family, and they are in agreement. Thank you for allowing me to participate in the care of this patient. Job ID: [id number]
[2018-04-03] MEDS: Levothyroxine Sodium 100 MCG TAB PO SCH (05:17)
[2018-04-03] MEDS: Liothyronine Sodium 5 MCG TAB PO SCH (05:18)
[2018-04-03] MEDS: Famotidine 20 MG TAB PO SCH (08:47)
[2018-04-03] MEDS: Multivitamin W/ Minerals 1 TAB PO SCH (08:47)
[2018-04-03] MEDS: Vit A,C & E/Lutein/Minerals Tablet PO SCH ×2 (08:47→21:05)
[2018-04-03] MEDS: Furosemide 40 MG/4 ML VIAL SLOW IVP SCH (08:47)
[2018-04-03] MEDS: Allopurinol 300 MG TAB PO SCH (08:47)
[2018-04-03] MEDS: Lisinopril 10 MG TAB PO SCH (08:47)
[2018-04-03] MEDS: Famotidine/PF 20 mg/2ml Vial SLOW IVP SCH (08:49)
[2018-04-03] MEDS: Clopidogrel Bisulfate 75 MG TAB PO SCH (08:49)
--- NOTE | 2018-04-03 13:36 | EKG ---
Test Reason : Blood Pressure : / mmHG Vent. Rate : 094 BPM Atrial Rate : 092 BPM P-R Int : 204 ms QRS Dur : 082 ms QT Int : 370 ms P-R-T Axes : 056 002 047 degrees QTc Int : 462 ms Sinus rhythm Motion artifact Confirmed by EDIS STARKEY DO ([id number]), editor city BONI ALCALA ([id number]) on 04/03/2018 1:35:55 PM Referred By: Confirmed By:EDIS STARKEY DO
--- NOTE | 2018-04-03 15:25 | PDOC.PN ---
- Subjective Encounter Start Date: 04/03/18 Encounter Start Time: 10:20 -: old records requested/rev Pt seen and examined, chart reviewed in its entirety, this is my first visit with this patient SOB earlier, got morphine, now much more relaxed, satting better, no longer tachypneic no F/C, no N/V, no D/C All systems reviewed and neg x as above - Objective Resuscitation Status - Order Detail: 04/02/18 15:15 Resuscitation Status Routine Resuscitation Status: DNAR: NO Resuscitation Discussed with: per patient and patient's family MAR Reviewed: Yes Vital Signs & Weight: Vital Signs (12 hours) Temp Pulse Pulse Pulse Pulse Resp BP 04/03/18 14:32 84 16 04/03/18 11:00 82 18 04/03/18 09:20 66 64 79 04/03/18 08:47 113/40 L 04/03/18 07:54 04/03/18 07:53 83 18 04/03/18 07:27 98.4 F 98 17 04/03/18 04:00 98.5 F 84 16 BP BP BP BP Pulse Ox 04/03/18 14:32 100 04/03/18 11:00 117/41 L 98 04/03/18 09:20 86/56 L 108/63 130/54 L 04/03/18 08:47 04/03/18 07:54 98 04/03/18 07:53 98 04/03/18 07:27 116/62 98 04/03/18 04:00 124/53 L 97 Weight Weight 130 lb 3.2 oz I&O: 04/02/18 04/03/18 04/04/18 06:59 06:59 06:59 Intake Total 772 1165 Output Total 1400 2850 Balance -430 -2405 Result Diagrams: 04/01/18 03:52 04/02/18 06:28 Radiology Reviewed by me: Yes EKG Reviewed by me: Yes Phys Exam - Physical Examination Constitutional: NAD HEENT: PERRLA, moist MMs, sclera anicteric, oral pharynx no lesions Neck: no nodes, no JVD, supple, full ROM Respiratory: no wheezing, no rales, no rhonchi, clear to auscultation bilateral Cardiovascular: RRR, no rub Gastrointestinal: soft, non-tender, no distention, positive bowel sounds Musculoskeletal: pulses present, edema present Neurological: non-focal, normal sensation, moves all 4 limbs Psychiatric: normal affect Deviation from normal: oriented to person, thought it wa 1980s Skin: no rash, normal turgor, cap refill <2 seconds Dx/Plan (1) Acute metabolic encephalopathy Code(s): G93.41 - METABOLIC ENCEPHALOPATHY Status: Acute Comment: improved, but not back to baseline (2) UTI (urinary tract infection) Status: Acute Qualifiers: Urinary tract infection type: acute cystitis Hematuria presence: with hematuria Qualified Code(s): N30.01 - Acute cystitis with hematuria (3) Hematuria Code(s): R31.9 - HEMATURIA, UNSPECIFIED Status: Acute Qualifiers: Hematuria type: gross Qualified Code(s): R31.0 - Gross hematuria (4) Chronic diastolic CHF (congestive heart failure) Code(s): I50.32 - CHRONIC DIASTOLIC (CONGESTIVE) HEART FAILURE Status: Chronic (5) COPD (chronic obstructive pulmonary disease) with chronic bronchitis Code(s): J44.9 - CHRONIC OBSTRUCTIVE PULMONARY DISEASE, UNSPECIFIED Status: Chronic - Plan cont current plan of care, plan discussed w/ family, continue antibiotics, PT/OT , out of bed/ambulate * .
--- NOTE | 2018-04-03 17:02 | PRG ---
DATE OF SERVICE: SUBJECTIVE: Ms. Dickinson was examined. She is in no distress. OBJECTIVE: VITAL SIGNS: Stable. Blood pressure is 124/53, oximetry is 97, weight is 130 pounds. Intake and output negative 60 and negative 5. LUNGS: Clear. HEART: Regular rhythm. ABDOMEN: Soft and nontender. EXTREMITIES: Without edema. LABORATORY STUDIES: She has no new lab today. ASSESSMENT AND PLAN: 1. Metabolic encephalopathy, improved. 2. Cystitis. 3. Diastolic heart failure is chronic. 4. Chronic obstructive pulmonary disease, which appears to be stable. 5. She is being transferred to a telemetry bed. We will continue Physical Therapy and supportive care. Eventually, she will end up in a skilled unit for further rehab. Job ID: [id number]
[2018-04-03] MEDS: Magnesium Oxide 400 MG TAB PO SCH (21:05)
--- NOTE | 2018-04-03 21:57 | PRG ---
DATE OF SERVICE: 04/03/2018 SUBJECTIVE: The patient noted with the following vital signs. OBJECTIVE: VITAL SIGNS: Afebrile, temperature 98.7, pulse 84, respiratory rate of 18, O2 saturation 96%, and blood pressure 106/50. HEENT: Examination unremarkable. CARDIOVASCULAR SYSTEM: First and second heart sounds were heard. RESPIRATORY SYSTEM: Clear to auscultation. DIGESTIVE SYSTEM: Revealed a benign abdomen with positive bowel sounds. EXTREMITIES: No peripheral edema. SKIN: No new gross rash. IMPRESSION: Severe symptomatic hyponatremia, which is much improved. PLAN: 1. Continue current renal supportive measures. 2. Further management will be dependent on the clinical course. Job ID: [id number]
[2018-04-04 05:45] LABS: Anion Gap 12 mmol/L (10-20); BUN (Urea Nitrogen) 32 mg/dL (9.8-20.1); Calc. Creatinine Clearance 48 mL/min (70-130); Calcium 9.1 mg/dL (7.8-10.44); Carbon Dioxide 26 mmol/L (23-31); Chloride 105 mmol/L (98-107); Estimated GFR-MDRD 71; Glucose 104 mg/dL (83-110); Magnesium 2.5 mg/dL (1.6-2.6); Potassium 4.4 mmol/L (3.5-5.1); Sodium 139 mmol/L (136-145)
[2018-04-04] MEDS: Liothyronine Sodium 5 MCG TAB PO SCH (06:11)
[2018-04-04] MEDS: Levothyroxine Sodium 100 MCG TAB PO SCH (06:11)
[2018-04-04] MEDS: Famotidine/PF 20 mg/2ml Vial SLOW IVP SCH (08:13)
[2018-04-04] MEDS: Multivitamin W/ Minerals 1 TAB PO SCH (08:20)
[2018-04-04] MEDS: Lisinopril 10 MG TAB PO SCH (08:20)
[2018-04-04] MEDS: Famotidine 20 MG TAB PO SCH (08:20)
[2018-04-04] MEDS: Allopurinol 300 MG TAB PO SCH (08:20)
[2018-04-04] MEDS: Vit A,C & E/Lutein/Minerals Tablet PO SCH ×2 (08:20→20:48)
[2018-04-04] MEDS: Furosemide 40 MG/4 ML VIAL SLOW IVP SCH (08:22)
[2018-04-04] MEDS: Clopidogrel Bisulfate 75 MG TAB PO SCH (08:22)
[2018-04-04 08:23] LABS: #Eosinphils 0.3 thou/uL (0.0-0.7); #Lymphocytes 0.9 thou/uL (1.20-3.40); #Monocytes 0.5 thou/uL (0.11-0.59); #Neutrophils 3.8 thou/uL (1.40-6.50); %Basophils 0.6 % (0.0-1.0); %Eosinophils 5.4 % (0.0-10.0); %Lymphocytes 15.8 % (21.0-51.0); %Monocytes 8.6 % (0.0-10.0); %Neutrophils 69.6 % (42.0-75.0); Hemoglobin 8.9 g/dL (12.0-16.0); Mean Corpuscular HGB CONC 31.7 g/dL (32.0-36.0); Mean Corpuscular Hemoglobin 40.1 pg (27.0-31.0); Mean Platelet Volume 9.7 fL (7.4-10.4); Platelet Count 230 thou/uL (130-400); RBC Distribution Width 15.1 % (11.5-14.5); Red Blood Cell (RBC) Count 2.23 mill/uL (4.20-5.40); White Blood Cell (WBC) Count 5.5 thou/uL (4.8-10.8)
--- NOTE | 2018-04-04 10:26 | PDOC.PN ---
- Subjective Encounter Start Date: 04/04/18 Encounter Start Time: 10:26 follow up for A on C diastolic CHF, hypoxemic resp failure no F/C, no N/V, no D/C All systems reviewed and neg x as above - Objective Resuscitation Status - Order Detail: 04/02/18 15:15 Resuscitation Status Routine Resuscitation Status: DNAR: NO Resuscitation Discussed with: per patient and patient's family MAR Reviewed: Yes Vital Signs & Weight: Vital Signs (12 hours) Temp Pulse Resp BP Pulse Ox 04/04/18 07:48 94 L 04/04/18 07:19 98.7 F 86 18 144/65 H 94 L 04/04/18 04:00 97.8 F 101 H 20 135/62 92 L 04/04/18 02:08 98 04/04/18 00:00 98.8 F 88 18 121/53 L 94 L Weight Weight 129 lb I&O: 04/03/18 04/04/18 04/05/18 06:59 06:59 06:59 Intake Total 1165 720 Output Total 2850 2850 Balance -1685 -2130 Result Diagrams: 04/04/18 07:32 04/04/18 04:32 Phys Exam - Physical Examination Constitutional: NAD HEENT: PERRLA, moist MMs, sclera anicteric, oral pharynx no lesions Neck: no nodes, no JVD, supple, full ROM Respiratory: no wheezing, no rales, no rhonchi, clear to auscultation bilateral Cardiovascular: RRR, no significant murmur, no rub Gastrointestinal: soft, non-tender, no distention, positive bowel sounds Musculoskeletal: pulses present, edema present Neurological: non-focal, normal sensation, moves all 4 limbs Lymphatic: no nodes Psychiatric: normal affect Skin: no rash, normal turgor, cap refill <2 seconds Dx/Plan (1) Acute metabolic encephalopathy Code(s): G93.41 - METABOLIC ENCEPHALOPATHY Status: Acute Comment: improved, but not back to baseline (2) UTI (urinary tract infection) Status: Acute Qualifiers: Urinary tract infection type: acute cystitis Hematuria presence: with hematuria Qualified Code(s): N30.01 - Acute cystitis with hematuria (3) Hematuria Code(s): R31.9 - HEMATURIA, UNSPECIFIED Status: Acute Qualifiers: Hematuria type: gross Qualified Code(s): R31.0 - Gross hematuria (4) Chronic diastolic CHF (congestive heart failure) Code(s): I50.32 - CHRONIC DIASTOLIC (CONGESTIVE) HEART FAILURE Status: Chronic (5) COPD (chronic obstructive pulmonary disease) with chronic bronchitis Code(s): J44.9 - CHRONIC OBSTRUCTIVE PULMONARY DISEASE, UNSPECIFIED Status: Chronic - Plan * .
--- NOTE | 2018-04-04 14:32 | PRG ---
DATE OF SERVICE: 04/04/2018 SUBJECTIVE: Ms. Dickinson has no complaints. She had no overnight events on the telemetry unit. She denies having any pain and nausea. OBJECTIVE: VITAL SIGNS: She is afebrile, heart rates in the 80s, respiratory rate is 18, blood pressure is 144/65. Her weight 129. Intake and output were remarkable for -2130 mL. LUNGS: Clear. HEART: Regular rhythm. ABDOMEN: Soft, nontender. EXTREMITIES: Without edema. LABORATORY DATA: White count 5.5, hemoglobin 8.9, and platelets 230,000. Electrolytes are normal. Sodium up to 139. IMPRESSION: 1. Encephalopathy, improved. 2. Hyponatremia. Sodium is back to normal. 3. Deconditioning. PLAN: Continue supportive care. Increase activity and skilled care if necessary for physical therapy. Job ID: [id number]
--- NOTE | 2018-04-04 17:52 | PRG ---
DATE OF SERVICE: SUBJECTIVE: The patient is doing much better. Noted with the following vital signs. OBJECTIVE: VITAL SIGNS: Afebrile, temperature 98.8; pulse 95; respiratory rate of 16; and blood pressure 118/54. HEENT: Unremarkable. CARDIOVASCULAR SYSTEM: First and second heart sounds were heard. RESPIRATORY SYSTEM: Clear to auscultation. DIGESTIVE SYSTEM: Revealed a benign abdomen with positive bowel sounds. EXTREMITIES: No peripheral edema. SKIN: No new gross rash. LYMPHATICS: No peripheral lymphadenopathy. LABORATORY INVESTIGATION: Showed a hemoglobin 8.9. Chemistry shows sodium 139. IMPRESSION: Hyponatremia, which has resolved. Sodium now within the normal range. PLAN: We will continue current renal supportive measures. Job ID: [id number]
[2018-04-04] MEDS: Magnesium Oxide 400 MG TAB PO SCH (20:49)
[2018-04-05 05:16] VITALS: TEMP 97.6
[2018-04-05] MEDS: Levothyroxine Sodium 100 MCG TAB PO SCH (05:33)
[2018-04-05] MEDS: Liothyronine Sodium 5 MCG TAB PO SCH (05:35)
[2018-04-05 06:21] LABS: #Eosinphils 0.3 thou/uL (0.0-0.7); #Lymphocytes 0.8 thou/uL (1.20-3.40); #Monocytes 0.3 thou/uL (0.11-0.59); #Neutrophils 2.1 thou/uL (1.40-6.50); %Basophils 0.8 % (0.0-1.0); %Eosinophils 7.4 % (0.0-10.0); %Lymphocytes 21.4 % (21.0-51.0); %Monocytes 9.6 % (0.0-10.0); %Neutrophils 60.8 % (42.0-75.0); Hemoglobin 8.8 g/dL (12.0-16.0); Mean Corpuscular HGB CONC 32.1 g/dL (32.0-36.0); Mean Platelet Volume 9.6 fL (7.4-10.4); Platelet Count 234 thou/uL (130-400); RBC Distribution Width 15.2 % (11.5-14.5); Red Blood Cell (RBC) Count 2.14 mill/uL (4.20-5.40); White Blood Cell (WBC) Count 3.5 thou/uL (4.8-10.8)
[2018-04-05 06:42] LABS: Anion Gap 8 mmol/L (10-20); BUN (Urea Nitrogen) 30 mg/dL (9.8-20.1); Calc. Creatinine Clearance 47 mL/min (70-130); Carbon Dioxide 32 mmol/L (23-31); Chloride 104 mmol/L (98-107); Estimated GFR-MDRD 70; Glucose 119 mg/dL (83-110); Magnesium 2.5 mg/dL (1.6-2.6); Potassium 4.5 mmol/L (3.5-5.1); Sodium 139 mmol/L (136-145)
[2018-04-05] MEDS ORDERED: Furosemide 20 MG TAB PO SCH (09:00)
[2018-04-05] MEDS: Vit A,C & E/Lutein/Minerals Tablet PO SCH (09:02)
[2018-04-05] MEDS: Famotidine 20 MG TAB PO SCH (09:02)
[2018-04-05] MEDS: Allopurinol 300 MG TAB PO SCH (09:02)
[2018-04-05] MEDS: Lisinopril 10 MG TAB PO SCH (09:02)
[2018-04-05] MEDS: Multivitamin W/ Minerals 1 TAB PO SCH (09:03)
--- NOTE | 2018-04-05 09:58 | PRG ---
DATE OF SERVICE: 04/05/2018 SUBJECTIVE: She is doing well, has no complaints, wants to be discharged. OBJECTIVE: VITAL SIGNS: On exam, temperature 97.6, pulse 72, respirations 18, O2 saturation 100% on 2 L, and blood pressure 145/65. HEENT: Unremarkable. NECK: No JVD. CHEST: Distant, but clear breath sounds. CARDIAC: S1 and S2, regular. ABDOMEN: Soft. EXTREMITIES: No edema. LABORATORY DATA: Her sodium is up to 139. ASSESSMENT: 1. Chronic obstructive pulmonary disease, which is clinically stable. 2. Hyponatremia that has been corrected. PLAN: She is medically clear for discharge from Pulmonary standpoint. We will sign off. Please recall for further assist as needed. Job ID: [id number]
[2018-04-05 12:52] VITALS: BP 133/62
--- NOTE | 2018-04-06 03:39 | DIS ---
DATE OF ADMISSION: 04/01/2018 DATE OF DISCHARGE: 04/05/2018 DISCHARGE DIAGNOSES: 1. Acute metabolic encephalopathy secondary to hyponatremia, resolving. 2. Acute hyponatremia secondary to increased free water intake, resolved. 3. Acute hypoxic respiratory failure, resolved. 4. Chronic obstructive pulmonary disease with acute exacerbation. 5. Acute on chronic diastolic heart failure. 6. Deconditioning. 7. Chronic macrocytic anemia. CONSULTATIONS: 1. Dr. Jyoti Keen with Nephrology Service. 2. Dr. Phelps and Dr. Ibarra with Pulmonology Service. PERTINENT LAB AND X-RAY FINDINGS: Sodium ranged between 118 to 139, potassium ranged between 4.3 to 5.0. Vitamin B12 level 341. Folate level 15.6, TSH 0.014, free T4 level 1.28. Serum cortisol level ranged between 14.2 to 22.2. CBC showed a hemoglobin ranging between 8.[address] of the brain without contrast dated 03/31/2018 showed remote left middle cerebral artery distribution infarct. Atrophy and chronic white matter ischemic changes noted. No acute process identified. CT of the abdomen and pelvis dated 03/31/2018 showed motion artifact limiting the sensitivity of the study. No acute process identified. Portable chest x-ray dated 03/31/2018 showed vascular prominence with small pleural effusions. HOSPITAL COURSE: The patient was initially admitted after presenting with acute metabolic encephalopathy in the context of severe hyponatremia with initial sodium level of 118. The patient likely with iatrogenic influence and increased free water intake. The patient was placed on Lasix after initially receiving hypertonic saline. The patient had improvement in overall sodium trend after initial dose of conivaptan. The patient's overall mentation improved with correction of sodium levels and the patient was clinically stable through the remainder of the hospital course. The patient was also initially managed for acute hypoxic respiratory failure in the context of known chronic obstructive pulmonary disease. The patient initially required BiPAP noninvasive mechanical ventilation, transitioning to oxygen by nasal cannula for the remainder of the hospital course. The patient was treated with bronchodilator therapy as well as IV Solu-Medrol and general pulmonary supportive care. Due to the patient's overall deconditioned status and current living situations, the patient was deemed an appropriate candidate for ongoing skilled care. The patient has been approved to continued supervised medical care at [facility] after discharge. I have examined the patient at the time of discharge and discussed followup instructions. The patient verbalized understanding and in agreement and ready for discharge on 04/05/2018. DISCHARGE MEDICATIONS: 1. ProAir HFA two puffs inhaled q.i.d. p.r.n. 2. Allopurinol 300 mg p.o. daily. 3. Aspirin 81 mg p.o. daily. 4. Vitamin D3, 2000 units p.o. daily. 5. Advair Diskus 250/50 one inhalation q.a.m. 6. Lasix 20 mg p.o. daily. 7. Levothyroxine 200 mcg p.o. daily. 8. Lisinopril 5 mg p.o. at bedtime. 9. Magnesium oxide 400 mg p.o. at bedtime. 10. Multivitamin one tablet p.o. daily. 11. Spiriva HandiHaler 18 mcg inhaled daily. 12. Multivitamin one tablet p.o. daily. FOLLOWUP: The patient to follow up with Dr. Ginny Salazar within 7 days of discharge. CONDITION ON DISCHARGE: Fair. ACTIVITY: Ad-jacob. Rolling walker with standby assistance. DIET: Heart healthy. CODE STATUS: Do not resuscitate. DISPOSITION: Discharged to [facility] on 04/05/2018. TIME SPENT: Total time preparing and current and coordinating discharge is 33 minutes. Job ID: [id number]
--- NOTE | 2018-04-07 18:07 | PQF ---
JANA HOFFMAN TONO PARRY [id number] [facility]- B11 [id number] CLINICAL DOCUMENTATION CLARIFICATION FORM: POST DISCHARGE Addendum to original discharge summary date: ____ Late entry note date: __ DATE: 03/28/18 ATTN: Please exercise your independent, professional judgment in responding to the clarification form. Clinical indicators are provided on the bottom of this form for your review Diagnosis: Acute on chronic diastolic heart failure Present on Admission (POA): [ x] Yes [ ] No [ ] Unable to determine Coding guidelines require hospitals to identify whether a diagnosis was present on admission (POA) or not. To accurately assign the appropriate POA indicator, this information must be clearly documented within the medical record. CLINICAL INDICATORS - SIGNS / SYMPTOMS / LABS Documentation to support POA status Increased respiratory rate RISK FACTORS: Documentation to support POA status Respiratory failure, COPD with exacerbation TREATMENT: Documentation to support POA status Lasix (This form is maintained as a part of the permanent medical record) 2014 [employer], [employer]. All Rights Reserved Luis A [email or web address] [phone] [email or web address]
== END 2018-04-05 14:33 | DRG 291 ==
LOC: ERS 19:31 → IMCU/EMU 04-01 00:20 → 2NO 04-03 15:32
PROVIDERS: ADMIT Internal Medicine; ATTEND Internal Medicine
PROC: 5A09457 Assistance with Respiratory Ventilation, 24-96 Consecutive Hours, Continuous Positive Airway Pressure (ICD-10-PCS; principal; 2018-04-01)
DX: I11.0 Hypertensive heart disease with heart failure (principal); J96.01 Acute respiratory failure with hypoxia; G93.41 Metabolic encephalopathy; J44.1 Chronic obstructive pulmonary disease with (acute) exacerbation; E22.2 Syndrome of inappropriate secretion of antidiuretic hormone; I50.33 Acute on chronic diastolic (congestive) heart failure; R31.9 Hematuria, unspecified; Z86.73 Personal history of transient ischemic attack (TIA), and cerebral infarction without residual deficits; Z95.5 Presence of coronary angioplasty implant and graft; I25.10 Atherosclerotic heart disease of native coronary artery without angina pectoris; Z85.3 Personal history of malignant neoplasm of breast; D64.9 Anemia, unspecified; E03.9 Hypothyroidism, unspecified; M81.0 Age-related osteoporosis without current pathological fracture; M10.9 Gout, unspecified; Z92.3 Personal history of irradiation; Z92.21 Personal history of antineoplastic chemotherapy; Z88.2 Allergy status to sulfonamides; Z87.891 Personal history of nicotine dependence
CPT/HCPCS: 36415; 51701; 70450; 71045; 74176; 80048; 80053; 81001; 81003; 81015; 82140; 82533; 82553; 82607; 82746; 83540; 83550; 83735; 83880; 83930; 83935; 84300; 84439; 84443; 84484; 85025; 87086; 93005; 94640; 94660; 96365; 96375; 96376; G8978-GP-CM; G8979-GP-CK; G8987-GO-CL; G8988-GO-CK; J0696; J1642; J1885; J1940; J1956; J2060; J2920; J7131; J7620; S0028

== ENCOUNTER 2018-04-23 09:29 | Inpatient (IN) | payer MEDICARE ==
[2018-04-23] MEDS ORDERED: Magnesium 2 GM/50 ML BAG (IN WATER) ONE (10:14)
[2018-04-23] MEDS ORDERED: methylPREDNISolone Sod Succ/PF 125 MG/2 ML VIAL ONE (10:14)
[2018-04-23] MEDS ORDERED: Water For Inject, Bacteriostat 30 ML ONE (10:15)
[2018-04-23 10:24] LABS: #Lymphocytes 0.5 thou/uL (1.20-3.40); #Monocytes 0.3 thou/uL (0.11-0.59); #Neutrophils 3.7 thou/uL (1.40-6.50); %Basophils 0.4 % (0.0-1.0); %Eosinophils 0.7 % (0.0-10.0); %Lymphocytes 10.3 % (21.0-51.0); %Neutrophils 81.7 % (42.0-75.0); Hemoglobin 9.9 g/dL (12.0-16.0); Mean Corpuscular HGB CONC 31.2 g/dL (32.0-36.0); Mean Corpuscular Hemoglobin 37.2 pg (27.0-31.0); Mean Platelet Volume 9.5 fL (7.4-10.4); Platelet Count 322 thou/uL (130-400); RBC Distribution Width 18.7 % (11.5-14.5); Red Blood Cell (RBC) Count 2.66 mill/uL (4.20-5.40); White Blood Cell (WBC) Count 4.6 thou/uL (4.8-10.8)
[2018-04-23 10:41] LABS: ALT (SGPT) 29 U/L (8-55); AST (SGOT) 26 U/L (5-34); Albumin 3.5 g/dL (3.4-4.8); Alkaline Phosphatase 87 U/L (40-150); Anion Gap 12 mmol/L (10-20); BUN (Urea Nitrogen) 22 mg/dL (9.8-20.1); Bilirubin, Total 0.6 mg/dL (0.2-1.2); Calc. Creatinine Clearance 0 mL/min (70-130); Calcium 9.7 mg/dL (7.8-10.44); Carbon Dioxide 30 mmol/L (23-31); Chloride 103 mmol/L (98-107); Estimated GFR-MDRD 65; Globulin 2.9 g/dL (2.4-3.5); Glucose 156 mg/dL (83-110); Potassium 4.8 mmol/L (3.5-5.1); Protein, Total 6.4 g/dL (6.0-8.3); Sodium 140 mmol/L (136-145)
[2018-04-23 10:48] LABS: Hypochromia SLIGHT = 6-15 cells (100X) (0-5/hpf); MDiff Complete? YES; Macrocytosis MODERATE=16-30 cells (100X) (0-5/hpf); Ovalocytes SLIGHT = 2-5 cells (100X) (0-1/hpf); PLT Morphology Comment Appears Adequate; Polychromasia MODERATE = 3-4 cells (100X) (0-2/hpf); Stomatocytes SLIGHT = 2-5 cells (100X) (0-1/hpf)
[2018-04-23 11:01] LABS: CKMB 1.7 ng/mL (0-6.6)
--- NOTE | 2018-04-23 11:17 | RAD ---
UPRIGHT PORTABLE CHEST 1 VIEW: HISTORY: An 87-year-old female with a history of respiratory distress. COMPARISON: 03/31/2018. FINDINGS: Cardiomegaly. Left subclavian catheter injection port. Aortic valve replacement. Cardiomegaly with bilateral pleural effusions with increase in both pleural effusions compared to the prior study. Th ere is bilateral vascular congestion and some interstitial edema. IMPRESSION: Evidence for worsening congestive heart failure with progressive pleural effusions with persistent va scular congestion and interstitial edema. POS: [place]
[2018-04-23] MEDS ORDERED: Furosemide 40 MG/4 ML VIAL ONE (11:18)
[2018-04-23 14:18] LABS: Troponin I 0.039 ng/mL (< 0.028)
[2018-04-23 16:07] VITALS: BMI 23.9
[2018-04-23 16:40] LABS: Troponin I 0.027 ng/mL (< 0.028)
--- NOTE | 2018-04-23 17:31 | CON ---
DATE OF CONSULTATION: 04/23/2018 Fifty minutes time was spent on this consultation; of that, greater than 50% spent with the patient and/or on the patient's unit in the hospital directly reviewing her information. HISTORY OF PRESENT ILLNESS: Ms. Dickinson is an 87-year-old female who presents with increasing shortness of breath that started earlier today. She was found to be profoundly hypoxemic. She was put briefly on BiPAP. She is now improved to the point where she is down to 2 L nasal cannula. PAST MEDICAL HISTORY: 1. COPD. 2. Valvular heart disease requiring an aortic valve replacement. 3. Breast cancer. 4. Stroke. 5. Coronary artery disease. 6. Hypothyroidism. 7. Right parotid gland tumor. 8. Osteoporosis. 9. Hypertension. 10. Gout. PAST SURGICAL HISTORY: 1. TAVR. 2. Port-A-Cath placement, left subclavian. 3. Radiation therapy to the neck. 4. Right shoulder surgery. 5. Bilateral cataract surgery. 6. Lumpectomy, subsequent chemo and radiation. 7. Umbilical hernia repair. 8. Exploratory laparotomy. 9. D and C x2. 10. Appendectomy. 11. Mouth surgery. SOCIAL HISTORY: She was a three pack per day smoker for 40 years. Quit over 10 years ago. Does not use illicit drugs. Does not drink alcohol. FAMILY MEDICAL HISTORY: Unremarkable. ALLERGIES: SULFA. MEDICATIONS: Spiriva, magnesium oxide, lisinopril, levothyroxine, furosemide, Advair, cholecalciferol, aspirin, allopurinol, and albuterol. REVIEW OF SYSTEMS: A 12-point review of systems is otherwise negative. PHYSICAL EXAMINATION: VITAL SIGNS: Temperature 98.3, blood pressure 167/52, respiratory rate 30, and O2 saturation 99% on 2 L. HEENT: Unremarkable. NECK: No adenopathy or JVD. LUNGS: Few crackles in the bases. CARDIAC: S1, S2 regular. ABDOMEN: Soft, nontender. EXTREMITIES: No edema. LABORATORY AND DIAGNOSTIC FINDINGS: Chest x-ray shows bilateral pleural effusions and congestive changes. BNP level was 1324. Troponin 0.039. Glucose 156, sodium 140, potassium 4.8, chloride 103, CO2 of 30, BUN 22, creatinine 0.8. White blood count 4.6, hematocrit 31.7, and platelet count 322. ASSESSMENT: 1. Acute congestive heart failure - likely diastolic. 2. Acute hypoxic respiratory failure which is improved. 3. Underlying chronic obstructive pulmonary disease which appears stable. PLAN: Agree with plan for diuretics, nebulization treatments, and continued use of her outpatient pulmonary regimen. She could probably be downgraded to the medical floor by tomorrow. Job ID: [id number]
[2018-04-23] MEDS ORDERED: Furosemide 40 MG/4 ML VIAL SLOW IVP SCH (18:00)
[2018-04-23] MEDS: Mometasone/Formoterol 120 PUFF INHALER INH SCH (18:14)
--- NOTE | 2018-04-23 20:49 | HP ---
CHIEF COMPLAINT: Shortness of breath and just not feeling good. HISTORY OF PRESENT ILLNESS: The patient is an 87-year-old female, who is admitted to the hospital with progressive shortness of breath, and she was just here in March, she was discharged on 04/05 with diagnosis of acute metabolic encephalopathy secondary to acute hyponatremia, and COPD, and acute on chronic diastolic heart failure. Apparently, she had one unit of packed red blood cells transfused few days ago for her hemoglobin of 7.7, thus far as we know she did not have any Lasix afterwards IV just regular dose of her oral Lasix at the [facility]. PAST MEDICAL HISTORY: Positive for, 1. Chronic bronchitis. 2. Chronic obstructive pulmonary disease. 3. Bronchiectasis. 4. History of breast cancer. 5. Chronic anemia. 6. History of cerebrovascular accident. 7. Coronary artery disease. 8. History of aortic stenosis, status post TAVR. 9. Hypothyroidism. 10. Atrial fibrillation. 11. Osteoporosis. 12. Hypertension. 13. Gout. PAST SURGICAL HISTORY: 1. Right shoulder surgery. 2. Thyroid surgery. 3. Bilateral cataract surgery. 4. Lumpectomy. 5. Carpal tunnel syndrome. 6. Umbilical hernia repair. 7. Exploratory laparotomy. 8. D and C x2. 9. Appendectomy. 10. Oral surgery. SOCIAL HISTORY: She does not smoke for long time, more than 10 years. She does not drink alcohol. She does not use any illicit drugs. FAMILY HISTORY: Father at the age of 86, and mother had CVA. MEDICATIONS: Please refer to the medications list. ALLERGIES: SULFA. REVIEW OF SYSTEMS: Postponed since the patient is on BiPAP mask at the time of my visit for her hypoxic respiratory failure. PHYSICAL EXAMINATION: VITAL SIGNS: Blood pressure is 141/56, pulse is 93, respiratory rate is 21, pulse oximeter is 93% on BiPAP settings 10/5, respiratory rate is FiO2 is 28%. HEENT: Her eyes are showing normal reaction to light. Pupils are responding properly. Conjunctiva is palish. Oral mucosa is not examined since she wears the mask. LUNGS: Breath sounds are diminished at both bases with bilateral crackles, both bases. No wheezing. HEART: S1 and S2. Somewhat irregular. No S3. No S4. ABDOMEN: Soft, nontender, and nondistended. EXTREMITIES: No clubbing, cyanosis, or edema. NEUROLOGICAL: Examination she is awake, but she closed her eyes during my whole visit. She moves her all four extremities. There are no any motor deficits present. LABORATORY DATA: Labs showed white count of 4.6, hemoglobin 9.9, hematocrit 31.7, and platelet count is 322,000. Chemistry showed normal electrolytes, BUN of 22, creatinine 0.83, glucose is 156, BNP is 1324, and troponin I 0.038. DIAGNOSTIC STUDIES: Chest x-ray showed congestive heart failure with progressive pleural effusions, vascular congestion, and interstitial edema. This was personally reviewed by me. IMPRESSION: 1. Respiratory failure secondary to congestive heart failure exacerbation. 2. Congestive heart failure exacerbation. 3. Chronic obstructive pulmonary disease. 4. Chronic anemia, status post recent blood transfusion. 5. Coronary artery disease. 6. History of aortic stenosis and status post transcatheter aortic valve replacement. 7. Hypothyroidism. 8. Atrial fibrillation. 9. Osteoporosis. 10. Hypertension. PLAN: Plan is admission to critical care. Activity bedrest, and bathroom privileges. IV Hep-Lock, Lasix 40 mg IV push every 12 hours. She had one dose in the emergency room. We will continue her BiPAP. We will get pulmonary consult with Dr. Phelps. I will get Dr. Patterson for Cardiology consultation, and we will reconcile her home medications, when the list is updated in the system. I will do the close followup on her electrolytes and will also do p.ralexandr Godinez. Job ID: [id number]
[2018-04-23] MEDS: Famotidine/PF 20 mg/2ml Vial SLOW IVP SCH (21:13)
--- NOTE | 2018-04-24 04:25 | CON ---
DATE OF CONSULTATION: 04/23/2018 INDICATIONS FOR CONSULTATION: This is an 87-year-old female with CHF and COPD exacerbation. HISTORY OF PRESENT ILLNESS: This lady is 87 years old, has had a history in the past of aortic valve replacement by TAVR. She also had a history of COPD and CHF. She has a history of atrial fibrillation. In the past, she was admitted after she has been in the assisted facility due to increasing shortness of breath and dyspnea on exertion. When she arrived, she was found to have some respiratory distress. She had been placed in intensive care unit. Her BNP was also elevated at 1324. She has been given some diuresis and feels better, but still remains on partial non-rebreather oxygen mask and is doing better at this time. She is only slightly short of breath. Her chest x-ray did show evidence of congestive heart failure. She also has something on the right lateral wall somewhat suspicious and also some congestion. There were also bilateral pleural effusions. She does have what appears to be chronic left pleural effusion, but has worsening of chest x-ray since September of 2017. She denied any chest pain. Her troponin I originally was 0.038. This has decreased down to 0.027. The BNP was 1324. At this time, she is feeling better. Her EKG did not show any acute changes. She does have sinus tachycardia, in case she has some PACs, but does not appear to have any atrial fibrillation at this time. PAST MEDICAL HISTORY: Significant for congestive heart failure, COPD, atrial fibrillation. She has had coronary artery disease possibly in the past. She had a stent placement, but I believe what she describes as being stent placement, most likely was a TAVR, which was placed in [place]. She has had thyroid cancer at age 25 and had radiation therapy as well as surgical correction. She had bilateral cataract surgery. She has had left shoulder fracture recently and also had evidence of some type of bladder lesion. SOCIAL HISTORY: She is a . She has 4 children who are alive and well. She stopped smoking about 12 years ago. Previous to that, she smoked 2 packs a day for over 30 or 40 years. FAMILY HISTORY: Noncontributory. ALLERGIES: SHE IS ALLERGIC TO SULFA. MEDICATIONS: Prior to admission include; 1. Lisinopril. 2. Levothyroxine. 3. Furosemide. 4. Allopurinol. 5. ProAir. 6. Aspirin. 7. Vitamins. 8. Magnesium. 9. Vitamin D3. 10. Multivitamins. 11. Advair Diskus. 12. Also Spiriva. REVIEW OF SYSTEMS: She complains of shortness of breath, dyspnea on exertion. She has occasional hematuria. She had an episode in the past of syncope. I did not believe she has had any further pacemaker insertions or anything as far as this is concerned, uncertain exactly what the etiology of the syncope was, but probably was due to hypoxemia at that time. PHYSICAL EXAMINATION: GENERAL: Reveals an elderly female, who is in no acute distress at this time. VITAL SIGNS: Blood pressure 150/52, heart rate is 106 and shows sinus tachycardia with PACs, O2 saturation 99%, respiratory rate is about 20. HEENT: The head to be normocephalic. She has evidence of a left neck dissection and also has soft, bilateral bruits which appeared to be radiating from the aortic area. Carotid pulses are present otherwise. CHEST: Her chest has decreased breath sounds at the bases. She does not take a deep inspiration. She does have bilateral rales also noted. CARDIOVASCULAR: She has tachycardia, but regular rhythm. She has a systolic murmur over the aortic area, about 3/6, which radiates toward the carotids. She also has a systolic murmur at the apex, most likely compatible with either radiation of the aortic area or mitral valve regurgitation. ABDOMEN: Soft, tympanic. She does have bowel sounds and no palpable masses. EXTREMITIES: No clubbing or cyanosis. Pedal pulses are difficult to palpate. There was no significant edema noted. SKIN: Warm and dry. NEUROLOGIC: She appears to be intact. LABORATORY DATA: EKG shows sinus rhythm with PACs. IMPRESSION: 1. Congestive heart failure exacerbation with elevated BNP. She has improvement since she has been given diuretics. We will continue diuretics at a low dose in hopes that she will stabilize. Chest x-ray also is compatible with congestive heart failure symptoms. 2. Chronic obstructive pulmonary disease. This is chronic for this lady by the welder experimental. 3. History of aortic valve stenosis and transcatheter aortic valve replacement. She had an echocardiogram in September of this year, which showed the transcatheter aortic valve replacement to be stable with mild aortic valve stenosis, most likely normal for this size and type of valve. She also had left atrial dilatation and diastolic dysfunction with ejection fraction of 55% to 60%. I suspect some of her congestive heart failures are mainly due to diastolic failure, more so than systolic failure. 4. History of tachycardia. This most likely is due to her underlying chronic obstructive pulmonary disease. 5. Chronic bilateral pleural effusions. We will continue to monitor this and hope, it will be improved after she has been given further diuretics. At this time, her medications include the IV Lasix as well as Lovenox, and I would agree with these medications. We will continue to follow the patient with you. Job ID: [id number]
[2018-04-24 05:14] LABS: Anion Gap 11 mmol/L (10-20); BUN (Urea Nitrogen) 30 mg/dL (9.8-20.1); Calc. Creatinine Clearance 42 mL/min (70-130); Calcium 9.3 mg/dL (7.8-10.44); Carbon Dioxide 32 mmol/L (23-31); Chloride 101 mmol/L (98-107); Estimated GFR-MDRD 63; Glucose 198 mg/dL (83-110); Potassium 4.4 mmol/L (3.5-5.1); Sodium 140 mmol/L (136-145)
[2018-04-24] MEDS: Furosemide 40 MG/4 ML VIAL SLOW IVP SCH ×2 (05:55→15:32)
[2018-04-24 06:09] LABS: Anisocytosis SLIGHT = 6-15 cells (100X) (0-5/hpf); Band 2 % (5-11); Hemoglobin 9.4 g/dL (12.0-16.0); Large Platelets SLIGHT; Lymphocytes 5 % (21-51); MDiff Complete? YES; Macrocytosis MODERATE=16-30 cells (100X) (0-5/hpf); Mean Corpuscular HGB CONC 30.9 g/dL (32.0-36.0); Mean Corpuscular Hemoglobin 36.7 pg (27.0-31.0); Mean Platelet Volume 9.7 fL (7.4-10.4); Monocytes 7 % (0-10); Neutrophil 86 % (42-75); PLT Morphology Comment Appears Adequate; Platelet Count 293 thou/uL (130-400); Polychromasia SLIGHT = 2-3 cells (100X) (0-2/hpf); RBC Distribution Width 18.4 % (11.5-14.5); Red Blood Cell (RBC) Count 2.55 mill/uL (4.20-5.40); White Blood Cell (WBC) Count 6.8 thou/uL (4.8-10.8)
[2018-04-24] MEDS: Mometasone/Formoterol 120 PUFF INHALER INH SCH ×2 (07:33→18:55)
--- NOTE | 2018-04-24 09:31 | PRG ---
DATE OF SERVICE: 04/24/2018 SUBJECTIVE: The patient feels better. She is breathing better than yesterday. OBJECTIVE: VITAL SIGNS: Temperature is 98.4, pulse 101, blood pressure 159/55, O2 saturation is 95% on 2 L. Intake for last 24 hours 600, output 815. HEENT: Unremarkable. NECK: No JVD. LUNGS: Few inspiratory crackles in the bases. CARDIAC: S1, S2. Regular. ABDOMEN: Soft. EXTREMITIES: No edema. LABORATORY DATA: White blood cell count 6.8, hematocrit 30, platelet count 293. Sodium 140, potassium 4.4, chloride 101, CO2 of 32, BUN 30, creatinine 0.8, glucose 198. Troponin 0.027. ASSESSMENT: 1. Acute diastolic congestive heart failure. 2. Acute hypoxic respiratory failure. 3. Underlying chronic obstructive pulmonary disease. PLAN: 1. Restart her antihypertensives and her thyroid, gout medication. 2. She can transfer out to the floor. 3. Nebulization treatments as needed. 4. Dulera is being substituted for her Advair since Advair is not on formulary. Job ID: [id number]
[2018-04-24] MEDS ORDERED: Multivitamin W/ Minerals 1 TAB PO SCH (10:00)
[2018-04-24] MEDS ORDERED: Levothyroxine Sodium 100 MCG TAB PO SCH (10:00)
[2018-04-24] MEDS ORDERED: Allopurinol 300 MG TAB PO SCH (10:00)
[2018-04-24] MEDS ORDERED: Vit A,C & E/Lutein/Minerals Tablet PO SCH (10:00)
[2018-04-24] MEDS: Levothyroxine Sodium 100 MCG TAB PO SCH (10:41)
[2018-04-24] MEDS: Vit A,C & E/Lutein/Minerals Tablet PO SCH (10:42)
[2018-04-24] MEDS: Multivitamin W/ Minerals 1 TAB PO SCH (10:42)
[2018-04-24] MEDS: Allopurinol 300 MG TAB PO SCH (10:43)
[2018-04-24] MEDS: Enoxaparin Sodium 40 MG/0.4 ML SYRINGE SC SCH (10:43)
--- NOTE | 2018-04-24 13:57 | PRG ---
DATE OF SERVICE: 04/24/2018 SUBJECTIVE: The patient is seen and examined at bedside. She is doing amazingly better. She is off her BiPAP. She is on a nasal cannula. She was just off oxygen and she was saturating in the high 80s on room air, so she is on 2 L of nasal cannula now. OBJECTIVE: VITAL SIGNS: Blood pressure is 141/55, pulse is 110, respirations 22, O2 saturations 95% on 2 L by nasal cannula. HEENT: Her head is atraumatic and normocephalic. Eyes are PERRLA. Sclerae are nonicteric. Oral mucosa is moist. NECK: Supple. JVD 1 to 2+, similar bilaterally. LUNGS: Breath sounds diminished at both bases. Crackles bilaterally at both bases. HEART: S1, S2. Tachycardic. No S3. No S4. ABDOMEN: Soft, nontender, nondistended. Bowel sounds are present. No organomegaly. EXTREMITIES: Approximately, 1+ peripheral edema in the lower extremities around the ankles. NEUROLOGICAL: She is alert and oriented x4. There is no any motor or sensory deficits. LABORATORY DATA: Showed white count of 6.8, hemoglobin 9.4, hematocrit 30.3, platelet count is 293,000. Sodium of 140, potassium 4.4, chloride 101, CO2 of 32, BUN 30, creatinine 0.85, glucose 196, calcium 9.3. Two additional sets of troponins showed 0.039 and 0.027. IMPRESSION: 1. Respiratory failure secondary to congestive heart failure exacerbation. 2. Congestive heart failure exacerbation. 3. Chronic obstructive pulmonary disease. 4. Chronic anemia, status post recent blood transfusion. 5. Coronary artery disease. 6. History of aortic stenosis and status post transcatheter aortic valve replacement. 7. Hypothyroidism. 8. Atrial fibrillation per history. 9. Osteoporosis. 10. Hypertension. PLAN: The patient is switched to nasal cannula. She is doing well on 2 L. Her pulse oximetry is about 95%. We will continue her IV Lasix 40 mg IV push every 12 hours. The patient was seen by siding applicator and loading dock hand. Her home medications were restarted, except for Lasix. She will be on p.r.n. DuoNebs and will follow up with serial BMPs since she is getting diuresed. She will be transferred to Telemetry floor as soon as the bed is available, and we are waiting for further recommendation from Cardiology. Job ID: [id number]
[2018-04-24] MEDS: Famotidine/PF 20 mg/2ml Vial SLOW IVP SCH (20:44)
[2018-04-24] MEDS: Lisinopril 5 MG TAB PO SCH (20:44)
[2018-04-24] MEDS: Magnesium Oxide 400 MG TAB PO SCH (20:45)
[2018-04-24] MEDS ORDERED: Lisinopril 10 MG TAB PO SCH (21:00)
--- NOTE | 2018-04-24 21:28 | PDOC.CTH ---
Cardiology Progress Note - Subjective Pt. seen and eval. by me. She is feeling better and less SOB. No c/o of chest pain. - Objective Vital Signs Temp Pulse Resp BP Pulse Ox 04/24/18 20:44 102 H 138/45 L 04/24/18 20:00 98.3 F 93 L 04/24/18 18:54 92 15 96 04/24/18 16:00 98.5 F 04/24/18 15:13 103 H 24 H 93 L 04/24/18 12:00 98.0 F 04/24/18 10:49 110 H 22 H 93 L Weight 126 lb 12.253 oz 04/23/18 04/24/18 04/25/18 06:59 06:59 06:59 Intake Total 600 500 Output Total 850 1150 Balance -250 -650 - Physical Examination General/Neuro: alert & oriented x3 Neck: no JVD present Lungs: other: (decr. breath sound on left lower lung 1/.) Heart: RRR Abdomen: soft - Telemetry Telemetry Rhythm: sinus - Labs Result Diagrams: 04/24/18 04:07 04/24/18 04:07 Troponin/CKMB CK-MB (CK-2) 1.7 ng/mL (0-6.6) 04/23/18 10:08 Troponin I 0.027 ng/mL (< 0.028) 04/23/18 16:01 - Assessment/Plan 1. COPD exacerbation-improving with present treatment. 2. CHF- stable 3. S/P TAVR- stable. 4. tachycardia. HR improved.
[2018-04-25] MEDS: Furosemide 40 MG/4 ML VIAL SLOW IVP SCH ×2 (06:13→13:39)
[2018-04-25] MEDS: Levothyroxine Sodium 100 MCG TAB PO SCH (06:13)
[2018-04-25] MEDS: Mometasone/Formoterol 120 PUFF INHALER INH SCH ×2 (06:55→18:45)
[2018-04-25 07:55] LABS: Anion Gap 13 mmol/L (10-20); BUN (Urea Nitrogen) 39 mg/dL (9.8-20.1); Calc. Creatinine Clearance 36 mL/min (70-130); Calcium 9.5 mg/dL (7.8-10.44); Carbon Dioxide 34 mmol/L (23-31); Chloride 99 mmol/L (98-107); Estimated GFR-MDRD 53; Glucose 125 mg/dL (83-110); Potassium 3.6 mmol/L (3.5-5.1); Sodium 142 mmol/L (136-145)
[2018-04-25] MEDS: Enoxaparin Sodium 40 MG/0.4 ML SYRINGE SC SCH (08:20)
[2018-04-25] MEDS: Multivitamin W/ Minerals 1 TAB PO SCH (08:20)
[2018-04-25] MEDS: Allopurinol 300 MG TAB PO SCH (08:20)
[2018-04-25] MEDS: Vit A,C & E/Lutein/Minerals Tablet PO SCH (08:21)
[2018-04-25 08:26] LABS: #Eosinphils 0.2 thou/uL (0.0-0.7); #Lymphocytes 0.8 thou/uL (1.20-3.40); #Monocytes 0.4 thou/uL (0.11-0.59); #Neutrophils 3.7 thou/uL (1.40-6.50); %Basophils 0.4 % (0.0-1.0); %Eosinophils 4.2 % (0.0-10.0); %Monocytes 8.2 % (0.0-10.0); %Neutrophils 72.1 % (42.0-75.0); Hemoglobin 10.4 g/dL (12.0-16.0); Mean Corpuscular HGB CONC 31.7 g/dL (32.0-36.0); Mean Corpuscular Hemoglobin 37.6 pg (27.0-31.0); Mean Platelet Volume 9.7 fL (7.4-10.4); Platelet Count 341 thou/uL (130-400); RBC Distribution Width 18.4 % (11.5-14.5); Red Blood Cell (RBC) Count 2.78 mill/uL (4.20-5.40); White Blood Cell (WBC) Count 5.1 thou/uL (4.8-10.8)
[2018-04-25] MEDS ORDERED: Non-Formulary Item 1 EACH (Cholecalciferol (Vitamin D3) [Vitamin D3] 2,000 UNIT) PO SCH (09:00)
[2018-04-25] MEDS ORDERED: Non-Formulary Item 1 EACH (Vit A/Vit C/Vit E/Zinc/Copper [Preservision Areds] 1 TABLET) PO SCH (09:00)
[2018-04-25] MEDS ORDERED: Allopurinol 300 MG TAB PO SCH (09:00)
[2018-04-25] MEDS ORDERED: Non-Formulary Item 1 EACH (Multivit-Min/Iron/Folic/Lutein [Centrum Silver Women] 1 TABLET PO SCH (09:00)
[2018-04-25] MEDS ORDERED: Non-Formulary Item 1 EACH (Levothyroxine Sodium [Levothyroxine Sodium] 200 MCG) PO SCH (09:00)
--- NOTE | 2018-04-25 11:52 | PRG ---
DATE OF SERVICE: 04/25/2018 SUBJECTIVE: The patient still quite dyspneic with any kind of exertion. OBJECTIVE: VITAL SIGNS: Temperature is 97.9, pulse 102, respirations 20, O2 sat 98% on 2.5 L, and she was actually in the upper 70s on room air. HEENT: Unremarkable. NECK: No JVD. LUNGS: She has inspiratory crackles in both bases. CARDIAC: S1 and S2, regular. ABDOMEN: Soft. EXTREMITIES: No edema. ASSESSMENT: 1. Congestive heart failure - acute diastolic. 2. Chronic obstructive pulmonary disease, which is about the same as always. PLAN: 1. Continue diuresis. 2. Continue nebs. 3. I do not think she is having any active bronchospasm at this time, so we would not add steroids. 4. She may require home oxygen at discharge. Job ID: [id number]
[2018-04-25] MEDS ORDERED: Potassium Chloride 20 MEQ TAB PO SCH (12:15)
--- NOTE | 2018-04-25 12:33 | PRG ---
DATE OF SERVICE: 04/25/2018 SUBJECTIVE: The patient is seen and examined at bedside. She is receiving breathing treatment during my visit. She would like to go home, but her oxygenation is running on the lower side, so most likely, she will stay at the hospital. OBJECTIVE: VITAL SIGNS: Blood pressure is 137/65, pulse is 104, temperature is 97.6, respiratory rate is 18, O2 saturation is 92% on 2.5 L by nasal cannula. HEENT: Her head is atraumatic and normocephalic. Eyes are PERRLA. Sclerae nonicteric. LUNGS: Breath sounds diminished at both bases. There is some dullness on percussion of both bases. Crackles bilaterally. HEART: S1 and S2. Tachycardic. No S3. No S4. ABDOMEN: Soft, nontender, nondistended. EXTREMITIES: No clubbing, cyanosis, or edema. NEUROLOGIC: She is alert and oriented x4. There is no any sensory or motor deficits. Cranial nerves are intact. LABORATORY DATA: White count of 5.1, hemoglobin 10.4, hematocrit 32.9, and platelet count 341,000. Chemistry showed sodium of 142, potassium 3.6, chloride 99, CO2 of 34, BUN 39, creatinine 0.99, glucose 129, and calcium 9.5. IMPRESSION: Shortness of breath, improved. This is a mixed picture of diastolic congestive heart failure and obstructive chronic pulmonary disease. The patient is receiving treatment for both. Cardiology will make some changes to her regimen, but we will continue her furosemide 40 twice a day IV push. We will supplement her with 40 of potassium because potassium is trending down and we will continue her DuoNeb and her inhaled steroids per Dr. Phelps's recommendation. Also, we will continue her aspirin and deep venous thrombosis prophylaxis with enoxaparin. Job ID: [id number]
--- NOTE | 2018-04-25 16:15 | PDOC.CTH ---
Cardiology Progress Note - Subjective The pt seen and examined. No overnight events. No cardiac complaints. She stated her breathing is stable with 3LNC. - Objective Vital Signs Temp Pulse Resp BP Pulse Ox 04/25/18 15:43 97.6 F 100 16 118/58 L 93 L 04/25/18 14:20 100 20 04/25/18 11:45 97.6 F 104 H 18 137/65 92 L 04/25/18 11:03 102 H 20 98 04/25/18 08:12 97.9 F 97 16 124/58 L 96 04/25/18 06:55 91 20 93 L 04/25/18 06:40 93 L 04/25/18 06:38 91 20 93 L Weight 126 lb 12.253 oz 04/24/18 04/25/18 04/26/18 06:59 06:59 06:59 Intake Total 600 500 Output Total 850 1425 Balance -250 -925 - Physical Examination General/Neuro: alert & oriented x3 Neck: no JVD present Lungs: other: (diminished at bases) Heart: RRR Abdomen: soft Extremities: other: (3+ pitting BLE edema) - Telemetry Telemetry Rhythm: ST/MAT 90-100s - Labs Result Diagrams: 04/25/18 07:22 04/25/18 07:22 Troponin/CKMB CK-MB (CK-2) 1.7 ng/mL (0-6.6) 04/23/18 10:08 Troponin I 0.027 ng/mL (< 0.028) 04/23/18 16:01 - Assessment/Plan 1. COPD exacerbation - improving with present treatment. Possible d/c home with Home O2; managed by chrome worker 2. Acute on chronic diastolic HF - stable with Lasix 40mg IV BID and SANDI. Not on Bblocker 2/2 hx of COPD. 3. S/P TAVR in 2016 - stable. On ASA. 4. Tachycardia - HR stable. 5. HTN - stable 6. Anemia - stable MAR reviewed Pt. seen and eval. by me. I agree with the A/P by the DATA ARCHITECT MANAGER. Chest improved from yesterday.. RRR, No edema. Review of Systems - Review of Systems Constitutional: reports: weakness EENTM: reports: no symptoms reported Respiratory: reports: see HPI Cardiac (ROS): reports: no symptoms reported ABD/GI: reports: no symptoms reported : reports: no symptoms reported Musculoskeletal: reports: no symptoms reported Skin: reports: no symptoms reported
[2018-04-25] MEDS: Famotidine 20 MG TAB PO SCH (21:13)
[2018-04-25] MEDS: Magnesium Oxide 400 MG TAB PO SCH (21:13)
[2018-04-25] MEDS: Lisinopril 5 MG TAB PO SCH (21:14)
[2018-04-26] MEDS: Furosemide 40 MG/4 ML VIAL SLOW IVP SCH ×2 (05:48→14:57)
[2018-04-26] MEDS: Levothyroxine Sodium 100 MCG TAB PO SCH (05:48)
[2018-04-26] MEDS: Mometasone/Formoterol 120 PUFF INHALER INH SCH ×2 (07:01→19:24)
[2018-04-26] MEDS: Potassium Chloride 20 MEQ TAB PO SCH (08:52)
[2018-04-26] MEDS: Vit A,C & E/Lutein/Minerals Tablet PO SCH (08:52)
[2018-04-26] MEDS: Multivitamin W/ Minerals 1 TAB PO SCH (08:52)
[2018-04-26] MEDS: Allopurinol 300 MG TAB PO SCH (08:52)
[2018-04-26] MEDS: Enoxaparin Sodium 40 MG/0.4 ML SYRINGE SC SCH (08:53)
--- NOTE | 2018-04-26 09:06 | RAD ---
PORTABLE CHEST: History: Shortness of breath. Comparison: 04-23-18 FINDINGS/IMPRESSION: Mild cardiomegaly. Metaport type catheter is unchanged in position. There is mild vascular congestion . There is left basilar opacification consistent with left basilar atelectasis/infiltrate. There are small bilateral effusions, slightly larger on the left. Similar findings were present on 04-23-18 although the congestive changes appear slightly improved. The opacity seen along the lateral right lung on the prior exam has improved. POS: [facility]
--- NOTE | 2018-04-26 10:56 | PRG ---
DATE OF SERVICE: 04/26/2018 SUBJECTIVE: Ms. Dickinson is doing fine. She has no complaints. OBJECTIVE: VITAL SIGNS: Temperature 98.1, pulse 93, O2 saturation 95% on 2 L, and blood pressure 115/53. HEENT: Unremarkable. NECK: No JVD. LUNGS: She has inspiratory crackles on both bases. CARDIAC: S1 and S2, regular. ABDOMEN: Soft. EXTREMITIES: No edema. ASSESSMENT: Congestive heart failure. PLAN: She is continuing diuresis probably able to go home tomorrow. May need supplemental oxygen. Job ID: [id number]
[2018-04-26 11:54] LABS: Anion Gap 14 mmol/L (10-20); BUN (Urea Nitrogen) 34 mg/dL (9.8-20.1); Calc. Creatinine Clearance 31 mL/min (70-130); Calcium 9.6 mg/dL (7.8-10.44); Carbon Dioxide 33 mmol/L (23-31); Chloride 97 mmol/L (98-107); Estimated GFR-MDRD 45; Glucose 156 mg/dL (83-110); Potassium 4.7 mmol/L (3.5-5.1); Sodium 139 mmol/L (136-145)
--- NOTE | 2018-04-26 11:54 | PRG ---
DATE OF SERVICE: 04/26/2018 SUBJECTIVE: The patient is seen and examined at the bedside. She is feeling gradually better. OBJECTIVE: VITAL SIGNS: Blood pressure is 115/53, pulse is 92, temperature is 98.1, respirations 20, and O2 saturation is 95% on 2 L by nasal cannula. HEENT: Her head is atraumatic and normocephalic. Eyes are PERRLA. Sclerae nonicteric. Oral mucosa is moist. NECK: Supple. LUNGS: Breath sounds diminished at both bases with bilateral crackles at both bases. HEART: S1 and S2 normal. No S3. No S4. ABDOMEN: Soft, nontender, and nondistended. EXTREMITIES: No clubbing, cyanosis, or edema. NEUROLOGIC: She is alert and oriented x4. There is no any motor or sensory deficits present. Cranial nerves are intact. LABORATORY DATA: Pending. IMPRESSION: 1. Congestive heart failure, acute on chronic diastolic improved with Lasix 40 mg IV push twice a day and angiotensin-converting enzyme inhibitor, not on beta steven secondary to chronic obstructive pulmonary disease. 2. Chronic obstructive pulmonary disease. 3. Status post transcatheter aortic valve replacement in 2016. 4. Hypertension. 5. Anemia. DISCUSSION: The patient is improving on IV Lasix and angiotensin-converting enzyme inhibitor. She is requiring at this point 2 L by nasal cannula. She is saturating 95%. She would like to get more diuresed and go home without any oxygen. If she does not get much better in terms of oxygenation, she will have to be on oxygen for some time at home. Check her BMP today. I will give her 40 mEq of potassium since her potassium is trending down and we will continue aspirin and levothyroxine and allopurinol. She will continue deep venous thrombosis prophylaxis with Lovenox. Job ID: [id number]
--- NOTE | 2018-04-26 12:04 | PQF ---
CLINICAL DOCUMENTATION IMPROVEMENT CLARIFICATION FORM: ICD-10 Updated PLEASE DO AN ADDENDUM TO THE PROGRESS NOTE WITH ANY DOCUMENTATION UPDATES OR ADDITIONS AND CARRY THROUGH TO DC SUMMARY. THANK YOU. DATE: 04/26/2018; 04/27/2018 ATTN: Dr. Kimble; Dr. Yoon Please exercise your independent, professional judgment in responding to the clarification form. Clinical indicators are provided on the bottom of this form for your review Please check appropriate box(s): I (concur) with the Nursing Assessment findings as stated below. [ ] Pressure Ulcer: (Stage I: Erythema; Stage II: Partial thickness; Stage III : Full thickness; Stage IV: Necrosis to muscle/bone) [ ] Location: Stage (I to IV): ____(Left____Right____Bilateral____N/A___) [ ] Location: Stage (I to IV): ____ (Left____Right___ Bilateral____N/A____) [ ] No pressure ulcer diagnosis [ ] Deep tissue injury [ ] Other diagnosis [ x ] Unable to determine In addition, please specify: Present on Admission (POA): [ ] Yes [ ] No [ x ] Unable to determine For continuity of documentation, please document condition throughout progress notes and discharge summary. Thank You. CLINICAL INDICATORS - SIGNS / SYMPTOMS / LABS Nursing Assessment 04/23/2018 @ 1615: SCG Pressure Ulcer Stage I RISKS: H&P 04/23/18: 87 yo. Admitted to the hospital with progressive SOB. Hx chronic bronchitis, COPD, CAD, HTN. Respiratory failure secondary to congestive heart failure exacerbation. TREATMENT: Skin interventions per Nursing Protocol: Position changes: Q2H in bed, Q1 H in chair Skin kept from excessive moisture Pre-ulcer skin changes limited to persistent focal edema (Stage 1) Abrasion, blister, partial thickness skin loss involving epidermis and/or dermis (Stage 2) Full thickness skin loss involving damage or necrosis of SQ tissue. (Stage 3) Necrosis of soft tissue through to underlying muscle, tendon, or bone. (Stage 4) Purple or maroon discolored skin or blood filled blister Thank you, Pamella (This form is maintained as a part of the permanent medical record) 2015 [employer] All Rights Reserved Pamella Briscoe RN, BSN [email or web address] Office: [phone] [facility] [facility]OSPITALAngel
[2018-04-26] MEDS: Famotidine 20 MG TAB PO SCH (20:26)
[2018-04-26] MEDS: Magnesium Oxide 400 MG TAB PO SCH (20:26)
[2018-04-26] MEDS: Lisinopril 5 MG TAB PO SCH (20:27)
[2018-04-27 05:28] LABS: Anion Gap 13 mmol/L (10-20); BUN (Urea Nitrogen) 42 mg/dL (9.8-20.1); Calc. Creatinine Clearance 32 mL/min (70-130); Carbon Dioxide 31 mmol/L (23-31); Chloride 101 mmol/L (98-107); Estimated GFR-MDRD 46; Glucose 118 mg/dL (83-110); Potassium 4.9 mmol/L (3.5-5.1); Sodium 140 mmol/L (136-145)
[2018-04-27] MEDS: Levothyroxine Sodium 100 MCG TAB PO SCH (06:04)
[2018-04-27] MEDS: Furosemide 40 MG/4 ML VIAL SLOW IVP SCH ×2 (06:04→14:22)
[2018-04-27] MEDS: Mometasone/Formoterol 120 PUFF INHALER INH SCH (07:00)
[2018-04-27] MEDS: Potassium Chloride 20 MEQ TAB PO SCH (08:39)
[2018-04-27] MEDS: Multivitamin W/ Minerals 1 TAB PO SCH (08:39)
[2018-04-27] MEDS: Allopurinol 300 MG TAB PO SCH (08:39)
[2018-04-27] MEDS: Vit A,C & E/Lutein/Minerals Tablet PO SCH (08:39)
[2018-04-27] MEDS: Enoxaparin Sodium 40 MG/0.4 ML SYRINGE SC SCH (08:39)
--- NOTE | 2018-04-27 10:54 | PRG ---
DATE OF SERVICE: 04/27/2018 SUBJECTIVE: The patient is feeling better. She wants to go home. OBJECTIVE: VITAL SIGNS: Her O2 sats 98% on 2 L, temperature 97.8, pulse 93, respirations 18, blood pressure 140/64. HEENT: Unremarkable. NECK: No JVD. CHEST: Clear anteriorly. CARDIAC: S1 and S2, regular. ABDOMEN: Soft. EXTREMITIES: No edema. LABORATORY DATA: Sodium 140, potassium 4.9, BUN 42, creatinine 1.1, glucose 118. ASSESSMENT: 1. Congestive heart failure from diastolic dysfunction, which appears to be better. 2. Underlying chronic obstructive pulmonary disease. PLAN: I think she can go home. I doubt she needs supplemental oxygen. Job ID: [id number]
[2018-04-27 13:04] VITALS: BP 150/67; TEMP 98
--- NOTE | 2018-04-28 06:32 | DIS ---
DATE OF ADMISSION: 04/23/2018 DATE OF DISCHARGE: 04/27/2018 DISCHARGE DISPOSITION: [facility]. PRIMARY CARE PHYSICIAN: Ginny Salazar MD CHIEF COMPLAINT/REASON FOR ADMISSION: Worsening shortness of breath. HISTORY OF PRESENT ILLNESS: Ms. Dickinson is a delightful 87-year-old female, admitted to the hospital for worsening dyspnea on exertion. She had a previous recent admission in mid March with metabolic encephalopathy, acute hyponatremia, COPD, and acute on chronic diastolic heart failure. She has had a previous transfusion in the context of acute on chronic anemia, presenting to the emergency department for additional evaluation and care due to worsening dyspnea. ADMISSION DIAGNOSIS: Respiratory failure secondary to congestive heart failure exacerbation. DISCHARGE DIAGNOSES: 1. Acute hypoxic respiratory failure secondary to acute on chronic diastolic congestive heart failure. 2. Chronic obstructive pulmonary disease, chronic. 3. History of chronic anemia. 4. Coronary artery disease. 5. History of aortic stenosis, status post transcatheter aortic valve replacement. 6. Hypothyroidism. 7. History of atrial fibrillation. 8. Osteoporosis. 9. Hypertension. 10. History of gout. HOSPITAL COURSE: Ms. Dickinson was admitted initially to the intensive care unit for acute on chronic hypoxic respiratory failure in the context of volume overload/diastolic CHF. BNP elevated at 1324. Consultation undertaken with Pulmonary Critical Care, Dr. Phelps, as well as Cardiology, Dr. Patterson. She improved with afterload reduction and diuresis. EKG notable for sinus tachycardia, with premature atrial contractions, no evidence of atrial fibrillation. During her hospital course, she responded well to diuretic therapy, and general supportive care. She was noted to have bilateral pleural effusions, also felt to be volume mediated. Repeat chest x-ray undertaken on 04/26/2018, showing mild vascular congestion, left basilar opacification compatible with atelectasis/infiltrate, small bilateral pleural effusions, left greater than right, changes compatible with congestion are noted to be slightly improved relative to previous examination. Additionally, skin tears were noted bilateral upper extremities, secondary to tape applied to skin. Wound Care consultation requested, and order for continuation of wound care provided on discharge paperwork. Additionally, oxygen 2 L per nasal cannula at bedtime is her baseline, presently using 2 L of oxygen during the day as well, though her saturations are notably improved from admission, presently in 86% range. On my interview today, I met with the patient as well as her daughter present at the bedside. I spoke with her son by phone as well. She appears to be improved from admission, and is stable for [facility] with ongoing oral diuretics. We discussed the dose of diuretics specifically. She will be placed on Lasix 20 mg orally twice daily, though ultimately may require a higher dose. In the past, she was stable on 20 mg orally twice daily, though recently her dose had decreased to once daily. On physical exam, lungs are somewhat distant, compatible with COPD, no rales, no crackles, no rhonchi. Abdomen is soft and nontender. Extremities are without significant edema. Skin tears are present on left upper extremity and right upper extremity, presently with a Tegaderm overlying. Neurologic exam, she is able to move all extremities bilaterally to command, no focal deficits. Her discharge orders are as follows; 1. Discharge to [facility]. 2. Oxygen 2 L per nasal cannula at bedtime, can use during the day as needed to keep saturations 88% to 92%. Treatments of DuoNebs twice daily scheduled for 3 days, then q.4 hours p.r.n. shortness of breath. Activity is up with assistance. PT/ OT evaluation and treatment. Diet 2 g sodium, heart healthy. Wound Care consultation for skin tears to the arms bilaterally. 3. Additional orders, please make a note on patient's chart, no tape to be applied to the skin. Send chem-7 and magnesium on 04/29/2018, sending results to patient's primary care physician. The patient is to be weighed daily, fluid restriction of 2000 mL per 24 hours, and notification to doctor if weight gain of two or more pounds in 2 days, increased swelling, or increased dyspnea with activity. MEDICATIONS: 1. Allopurinol 300 mg p.o. once daily. 2. Aspirin 81 mg p.o. once daily. 3. Vitamin D3 2000 units p.o. once daily. 4. Levothyroxine 200 mcg p.o. once daily. 5. Lisinopril 5 mg p.o. at bedtime. 6. Magnesium oxide 400 mg p.o. at bedtime. 7. Centrum Silver Women p.o. daily. 8. PreserVision AREDS vitamin p.o. daily. 9. ProAir HFA 2 to 4 puffs q.4 hours p.r.n. shortness of breath. 10. Advair Diskus 250/50 one puff daily. 11. Lasix 20 mg p.o. twice daily. 12. DuoNeb twice daily scheduled for 3 days and thereafter q.4 hours p.r.n. shortness of breath. 13. Potassium chloride 20 mEq p.o. once daily. 14. Spiriva 18 mcg inhaled once daily. TIME SPENT: Total discharge time 50 minutes. Job ID: [id number] MTDD
== END 2018-04-27 15:25 | DRG 291 ==
LOC: ERS 09:29 → ERHOLD 12:29 → CCU 14:51 → 2NO 04-25 00:41
PROVIDERS: ADMIT Internal Medicine; ATTEND Internal Medicine
DX: I11.0 Hypertensive heart disease with heart failure (principal); J96.01 Acute respiratory failure with hypoxia; I50.33 Acute on chronic diastolic (congestive) heart failure; J44.9 Chronic obstructive pulmonary disease, unspecified; D64.9 Anemia, unspecified; Z86.73 Personal history of transient ischemic attack (TIA), and cerebral infarction without residual deficits; I25.10 Atherosclerotic heart disease of native coronary artery without angina pectoris; I10 Essential (primary) hypertension; Z95.2 Presence of prosthetic heart valve; Z85.3 Personal history of malignant neoplasm of breast; E03.9 Hypothyroidism, unspecified; M81.0 Age-related osteoporosis without current pathological fracture; M10.9 Gout, unspecified; Z87.891 Personal history of nicotine dependence; Z88.2 Allergy status to sulfonamides; I48.91 Unspecified atrial fibrillation; Z92.21 Personal history of antineoplastic chemotherapy; L89.91 Pressure ulcer of unspecified site, stage 1
CPT/HCPCS: 36415; 71045; 80048; 80053; 82553; 83880; 84484; 85025; 93005; 93798; 94640; 94660; 94760; 96365; 96375; J1650; J1940; J2930; J7620; S0028

== ENCOUNTER 2018-10-28 07:55 | Outpatient (CLI) | payer MEDICARE ==
--- NOTE | 2018-10-28 09:07 | MMO ---
Bilateral MAMMO Bilat Screen [facility]. CLINICAL HISTORY: Patient is 87 years old and is seen for screening. The patient has no family history of breast cancer. The patient has a history of malignant (generic) in the right breast in April, and bladder cancer. The patient has a history of right Lumpectomy in April, - malignant and right Excisional Biopsy in April, - malignant. VIEWS: The views performed were: bilateral craniocaudal with tomosynthesis; bilateral mediolateral oblique with tomosynthesis; and right mediolateral oblique. FILMS COMPARED: The present examination has been compared to prior imaging studies performed at [facility] on 09/22/2014, and at [facility] on 05/13/2012. MAMMOGRAM FINDINGS: There are scattered fibroglandular densities. Right breast: Stable post surgical change. There are benign appearing calcifications in the right breast. Left breast: There are benign appearing calcifications in the left breast. There are no suspicious masses, calcifications or areas of architectural distortion. There are no suspicious masses, suspicious calcifications, or new areas of architectural distortion. IMPRESSION: THERE IS NO MAMMOGRAPHIC EVIDENCE OF MALIGNANCY. A ROUTINE FOLLOW-UP MAMMOGRAM IN 1 YEAR IS RECOMMENDED. THE RESULTS OF THIS EXAM WERE SENT TO THE PATIENT. ACR BI-RADS Category 2 - Benign finding MAMMOGRAPHY NOTE: 1. A negative mammogram report should not delay a biopsy if a dominant of clinically suspicious mass is present. 2. Approximately 10% to 15% of breast cancers are not detected by mammography. 3. Adenosis and dense breasts may obscure an underlying neoplasm. Reported by: AYESHA HAZEL MD Electonically Signed: [id number]
--- NOTE | 2018-10-28 15:48 | BD ---
DEXA BONE DENSITY STUDY: Date: 10/28/18 HISTORY: Postmenopausal. FINDINGS: Lumbar Spine: BMD (g/cm2) L1 0.770 T-Score: -2.0 L2 0.750 T-Score: -2.5 L3 0.834 T-Score: -2.3 L4 0.842 T-Score: -2.0 Total 0.806 T-Score: -2.2 Left Femoral Neck: 0.342 T-Score: -4.6 Total Femur: 0.627 T-Score: -2.6 IMPRESSION: 1. Osteopenia of the lumbar spine bordering on osteoporosis. 2. Severe osteoporosis changes of the left femoral neck. POS: [facility]
== END 2018-10-28 07:56 | disposition home or self-care (01) ==
LOC: BICMAMMO 07:55
PROVIDERS: ATTEND Internal Medicine
DX: Z12.31 Encounter for screening mammogram for malignant neoplasm of breast (principal); Z13.820 Encounter for screening for osteoporosis; M19.90 Unspecified osteoarthritis, unspecified site; M85.88 Other specified disorders of bone density and structure, other site; Z85.51 Personal history of malignant neoplasm of bladder; Z98.890 Other specified postprocedural states
CPT/HCPCS: 77063; 77067; 77080

== ENCOUNTER 2019-01-24 10:38 | Outpatient (CLI) | payer MEDICARE ==
--- NOTE | 2019-01-24 12:27 | RAD ---
2 VIEW CHEST: Date: 01/24/19 INDICATINO: Dyspnea. COMPARISON: 04/26/18. FINDINGS: Cardiomegaly with vascular congestion is noted. Interstitial prominence suggests mild interstitial ed kade. Small effusions. MediPort catheter has tip overlying the SVC. Stent graft at the region of the a ortic valve. Degenerative changes in the spine with mild wedging. Prominent aortic calcification. IMPRESSION: Cardiomegaly with mild congestive change and small effusions as described. POS: [facility]
== END 2019-01-24 10:39 | disposition home or self-care (01) ==
LOC: RAD 10:38
PROVIDERS: ATTEND Internal Medicine Critical Care Medicine
DX: R06.00 Dyspnea, unspecified (principal); I51.7 Cardiomegaly; J90 Pleural effusion, not elsewhere classified
CPT/HCPCS: 71046

== ENCOUNTER 2019-02-09 11:34 | Outpatient (CLI) | payer MEDICARE ==
--- NOTE | 2019-02-09 12:05 | RAD ---
THORACIC SPINE X-RAY TWO VIEWS: 02/09/2019 CLINICAL INDICATION: History of compression fracture. COMPARISON: Chest radiography from 01/24/2019. FINDINGS: Thoracic kyphosis is similar. Multilevel moderate degenerative change throughout the thoracic spine a nd osseous demineralization again demonstrated. Multilevel areas of mild anterior wedging of the thoracic spine are similar. Mild to moderate height loss related to anterior wedge compression of the thoracolumbar region is limited in visualization although likely stable to comparison exam. There is dextroscoliosis. Incidental note of pleural based density at the lower chest bilaterally. IMPRESSION: Grossly stable appearance of the thoracic spine to 01/24/2019 examination with multilevel, likely chr onic compression deformities. Transcribed Date/Time: 02/09/2019 12:44 PM
--- NOTE | 2019-02-09 12:06 | RAD ---
XR Hip Rt 2-3 View HISTORY: Right hip pain FINDINGS: No fracture or dislocation is identified. Degenerative changes are present.
== END 2019-02-09 11:35 | disposition home or self-care (01) ==
LOC: BICRAD 11:34
PROVIDERS: ATTEND Internal Medicine Rheumatology
DX: M25.551 Pain in right hip (principal); M54.6 Pain in thoracic spine; M16.11 Unilateral primary osteoarthritis, right hip
CPT/HCPCS: 72070

== ENCOUNTER 2019-02-12 11:24 | Inpatient (IN) | payer MEDICARE ==
[2019-02-12] MEDS ORDERED: Nitroglycerin 2% Ointment 1 INCH/1 GM Packet ONE (11:44)
[2019-02-12] MEDS ORDERED: Aspirin Chewable 81 MG TAB ONE (11:44)
[2019-02-12] MEDS ORDERED: ISOVUE-370 76%-LOCM 1 ML ONE (11:54)
[2019-02-12 12:16] LABS: ALT (SGPT) 22 U/L (8-55); AST (SGOT) 20 U/L (5-34); Albumin 3.7 g/dL (3.4-4.8); Alkaline Phosphatase 125 U/L (40-110); Anion Gap 15 mmol/L (10-20); BUN (Urea Nitrogen) 33 mg/dL (9.8-20.1); Bilirubin, Total 0.4 mg/dL (0.2-1.2); Calc. Creatinine Clearance 0 mL/min (70-130); Calcium 9.4 mg/dL (7.8-10.44); Carbon Dioxide 26 mmol/L (23-31); Chloride 107 mmol/L (98-107); Estimated GFR-MDRD 49; Globulin 2.8 g/dL (2.4-3.5); Glucose 173 mg/dL (83-110); Potassium 4.7 mmol/L (3.5-5.1); Protein, Total 6.5 g/dL (6.0-8.3); Sodium 143 mmol/L (136-145)
[2019-02-12 12:19] LABS: CKMB 1.7 ng/mL (0-6.6)
[2019-02-12 12:32] LABS: Anisocytosis SLIGHT = 6-15 cells (100X) (0-5/hpf); Band 2 % (5-11); Eosinophils 3 % (0-10); Hemoglobin 10.7 g/dL (12.0-16.0); Hypochromia SLIGHT = 6-15 cells (100X) (0-5/hpf); Lymphocytes 7 % (21-51); MDiff Complete? YES; Macrocytosis SLIGHT = 6-15 cells (100X) (0-5/hpf); Mean Corpuscular HGB CONC 30.1 g/dL (32.0-36.0); Mean Corpuscular Hemoglobin 40.1 pg (27.0-31.0); Monocytes 10 % (0-10); Neutrophil 78 % (42-75); Platelet Count 416 thou/uL (130-400); Platelet Morphology Comment Appears Increased; RBC Distribution Width 14.9 % (11.5-14.5); Red Blood Cell (RBC) Count 2.67 mill/uL (4.20-5.40); White Blood Cell (WBC) Count 5.7 thou/uL (4.8-10.8)
--- NOTE | 2019-02-12 13:13 | CT ---
CT PULMONARY ANGIOGRAM WITH IV CONTRAT AND 3D POSTPROCESSING: Date: 02/12/19 HISTORY: COPD, shortness of breath. FINDINGS: There is good contrast opacification of the pulmonary arterial vasculature without filling defects to suggest pulmonary embolism. There is an 8-9 mm enhancing nodule in the peripheral aspect of the righ t lower lobe consistent with AVM. The thoracic aorta is well opacified without aneurysm or dissection . Stent graft is seen in the aortic valve. No pericardial effusion is seen. Bilateral pleural effusio ns, left larger than right, with adjacent infiltrate/atelectatic changes. No pneumothoraces are seen. Atherosclerotic changes are present. There are enlarged mediastinal lymph nodes measuring up to 17.0 mm. Degenerative changes are present in the spine. Upper abdominal tomograms demonstrate a few small low density lesions in the liver like ly cysts. IMPRESSION: 1. No CT evidence of pulmonary embolism or thoracic aortic aneurysm/dissection. 2. Bilateral pleural effusions, left larger than right. 3. Emphysema. 4. Mediastinal lymphadenopathy. 5. AVM in the right lower lobe. POS: [facility]
[2019-02-12] MEDS ORDERED: Ondansetron PF 4 MG/2 ML Vial IVP PRN (15:07)
[2019-02-12] MEDS ORDERED: Ondansetron ODT 4 MG TAB SL PRN (15:07)
[2019-02-12] MEDS ORDERED: HYDROcodone/Acetaminophen 5/325 mg Tablet PO PRN ×2 (15:07)
[2019-02-12] MEDS ORDERED: Acetaminophen 325 MG TAB PO PRN (15:07)
[2019-02-12 15:15] VITALS: BMI 28.1
[2019-02-12] MEDS ORDERED: Senokot S 8.6-50 MG TAB PO PRN (15:33)
[2019-02-12] MEDS ORDERED: Labetalol HCl 100 MG/20 ML VIAL SLOW IVP SCH (16:00)
[2019-02-12] MEDS: cefTRIAXone\\ROCEPHIN 1 GM in Sodium Chloride 0.9% 100 ML IVPB SCH (17:34)
[2019-02-12] MEDS ORDERED: Diltiazem 125 MG in Sodium Chloride 0.9% 100 ML IVPB SCH (18:15)
[2019-02-12] MEDS: Azithromycin 500 MG in Sodium Chloride 0.9% 250 ML 250 ML IVPB SCH (18:31)
--- NOTE | 2019-02-12 19:41 | CON ---
DATE OF CONSULTATION: PRIMARY CARE DOCTOR: Dr. Salazar. PRIMARY GAS METER PROVER: Dr. Cain. PRIMARY UROLOGIST: Dr. Pelaez. PRIMARY TECHNICIAN ASSISTANT: Dr. Phelps. REASON FOR CARDIOLOGY CONSULTATION: Congestive heart failure and fluid overload. HISTORY OF PRESENT ILLNESS: Ms. Dickinson is an 88-year-old female with a significant history of chronic diastolic heart failure, COPD, history of aortic valve stenosis status post TAVR placement, status post bladder cancer. The patient presented to the emergency department for worsening of shortness of breath and fatigue for at least 1 week. She continued having shortness of breath due to the history of COPD. She had seen Dr. Phelps for history of COPD. She uses oxygen at night; however, yesterday, she tried to use oxygen at the daytime, however the patient continued having shortness of breath with mild exertion. She usually exercises 4 times a week at the assisted living and she is doing well usually, however, the last week, she could not even finish . The patient's daughter noticed she is having severe exertion with walking from bed to the bathroom. She took total of 60 mg of the Lasix today at noon, however, that medication did not improve her symptoms, that is the reason the patient decided to come to the emergency department. In the emergency department, the patient was found to have atrial flutter with RVR with heart rate 120s to 130s. After the patient received labetalol 5 mg IV push at 1732, the patient's heart rate coming down to 100s to 110s. However, around 1800, the patient's heart rate went back to 120s to 130s. The patient denied any dizziness, lightheadedness, palpitation, fluttering in her chest, chest pain or discomfort in her chest or any other cardiac complaints except for worsening of shortness of breath and edema in the lower extremities. The patient has had echocardiogram done in December 2017 with EF 55% to 60%, mildly dilated left atrium, normal function of TAVR, mild to moderate mitral valve regurgitation, mild to moderate tricuspid regurgitation, mild to moderate pulmonary regurgitation, and RVSP is 60.818 mmHg. The patient had a vein study in January 2019 to rule out varicose vein, which was normal. PAST MEDICAL HISTORY: Chronic diastolic heart failure, COPD. The patient has a history of atrial fibrillation, CAD, thyroid cancer at the age of 25 with radiation and surgical correction and bilateral cataract surgery, and she had a breast cancer and she had bladder cancer resected in the year 2019. PAST SURGICAL HISTORY: TAVR placement in 2016 and cataract surgery. FAMILY HISTORY: The patient's father has a bladder cancer. The patient's brother has a prostatic prostate and has hypertension. SOCIAL HISTORY: The patient is a . She lives at the assisted living. She has 4 children who are alive and well. She stopped smoking about 12 years ago. Previous to that, she smoked 2-pack a day for over 30 to 40 years. She continues to drink at least 1 glass of wine a day. She denies illicit drug abuse. According to the patient, she drinks at least close to does not watch the salt intake. She would like to drink a big bottle of soda a day. She exercises 4 times a week if she does not have any worsening of shortness of breath. ALLERGIES: SHE IS ALLERGIC TO SULFA. HOME MEDICATIONS: 1. Levothyroxine 200 mcg once a day. 2. Allopurinol 300 mg once a day. 3. ProAir 2 to 4 puffs every 4 hours as needed. 4. Aspirin 81 mg once a day. 5. Magnesium 400 mg once a day. 6. Vitamin D3 of 2000 units once a day. 7. Multivitamin 1 tablet once a day. 8. Advair 1 puff every morning. 9. Lasix 20 mg 2 tablets once a day. 10. Potassium 20 mEq once a day. 11. DuoNeb every 4 hours as needed. 12. Nitroglycerin. 13. Magnesium. 14. PreserVision. 15. Tylenol 500 mg once a day as needed. REVIEW OF SYSTEMS: A 12-point review of systems negative unless otherwise mentioned in the HPI. She denies any hematuria or hematochezia. The patient denies falling at least the last 6 months. PHYSICAL EXAMINATION: VITAL SIGNS: Blood pressure last one 133/62, pulse 113 with atrial flutter, temperature 98.5, respiratory rate 17, O2 sats 100%. She is on 2 L nasal cannula. GENERAL: The patient is alert and oriented x4, in no acute distress. HEENT: Normocephalic, atraumatic. Eyes, extraocular muscle movement intact. ENT; mouth, oral and nasal mucosa moist without lesion. NECK: Supple. Normal range of motion. No JVD. RESPIRATORY: Very diminished at the bases, but no wheezing, rales, or rhonchi noted. CARDIOVASCULAR: Irregularly irregular. No S3 or S4. No significant murmur, heaves or thrill noted. 2+ pulses in the bilateral lower extremities. She has 2 to 3 pitting in the bilateral lower extremities. Carotid pulses are present without bruit or thrill. ABDOMEN: Soft, nontender. No mass to palpitate. Bowel sounds are present. SKIN: Warm and dry. No lesion, rash, erythema noted. MUSCULOSKELETAL: The patient able to move all extremities. The patient denied claudication. NEUROLOGICAL: The patient is alert and oriented x4, nonfocal. PSYCHIATRIC: The patient's mood is appropriate. LABORATORY DATA: WBC 5.7, hemoglobin 10.7, hematocrit 35.6, platelets 416. Sodium 143, potassium 4.7, BUN is 33, creatinine 1.06. AST 20, ALT 22. CK-MB 1.7. Troponin is negative. BNP is 644. CTA of the chest and thoracic shows no pulmonary embolism or thoracic aortic aneurysm or dissection. Bilateral pleural effusion, left side is larger than the right side and emphysema, AVM in the right lower lobe. The patient's telemetry records have been showing the patient has atrial flutter with RVR. 12-lead EKG at the emergency department showed actually sinus tach, heart rate 129, but seems like the patient is in and out atrial flutter and sinus tach. ASSESSMENT AND PLAN: 1. New onset of atrial flutter with rapid ventricular response. After the patient received labetalol 5 mg around 1730, the patient's heart rate going down to 100s to 110s. However, at this moment around 1800, the patient's heart rate going up to 120s to 130s again. Diltiazem IV drip with 5 mg is going to be started from today as soon as possible. The patient's blood pressures have been stable around 130 to 150 on the systolic side. We would like to continue to monitor on the telemetry. She is on Lovenox 30 mg subcu once a day, we would like to change it to Lovenox twice a day for stroke prevention. 2. Acute on chronic diastolic heart failure. She is on Lasix 40 mg IV push twice a day. If the patient's blood pressure is stable with diltiazem IV drip, beta-steven for heart failure management is going to be started and if the patient's blood pressure is more stable, we would like to start SANDI inhibitor or ARB for this patient. The patient's creatinine level is stable at this moment. 3. Pleural effusion, right side more than left side. The patient is on Lasix 40 mg twice a day at this moment, we would like to continue to monitor. 4. Chronic obstructive pulmonary disease exacerbation. She is stable with nasal cannula at this moment. She has several breathing treatment. 5. Status post TAVR in 2015. The patient's last echocardiogram in December 2018 showed normal function. 6. Hypertension. Blood pressure is stable at this moment. 7. Anemia. She has a history of anemia, which is better than in April 2018. We would like to continue to monitor. 8. Fluid overload. Sodium intake and fluid intake education given to the patient. The patient and the family member voiced understanding and she would like to watch her fluid intake from now on. Thank you very much for Cardiology Service to participate in care of this patient. We will follow along with the patient's care team and make further recommendations as appropriate, and from Thursday, the Dr. Cain is going to follow up with this patient. Job ID: [id number]
[2019-02-12] MEDS: Famotidine 20 MG TAB PO SCH (20:22)
[2019-02-12] MEDS ORDERED: FLU VACC TS2019-20(65YR UP)/PF 180 MCG/0.5 ML SYRINGE IM ONE (21:00)
[2019-02-12] MEDS ORDERED: Famotidine 20 MG TAB PO SCH (21:00)
[2019-02-12] MEDS ORDERED: Prevnar 13-Val Conj/PF 0.5 ML SYRINGE IM ONE (21:00)
[2019-02-12] MEDS ORDERED: Enoxaparin Sodium 60 MG/0.6 ML SYRINGE SC SCH (23:00)
--- NOTE | 2019-02-12 23:07 | CON ---
DATE OF CONSULTATION: 02/12/2019 INDICATION FOR CONSULTATION: An 88-year-old female, who is status post aortic valve replacement by TAVR. She has had a history of COPD and congestive heart failure. Also, she has had a history in the past of atrial fibrillation. Over the last several days, she has been becoming more short of breath and has further lower extremity edema. Her Lasix dose was increased, but did not help the overall edema and then she presented to the emergency room. EKG indicates that this lady is now in atrial flutter with a rapid ventricular response and most likely, this is the etiology of the worsening of her congestive heart failure symptoms. She denied any chest pain. She just noticed that she was becoming more short of breath. Her chest x-ray does show bilateral pleural effusions, more greater on the left than on the right, compatible somewhat what she had on a previous admission when I saw her back in April. She does have a history of COPD in the form of emphysema and has been followed by Pulmonology also. There were no acute ST-segment changes on the EKG to indicate ischemia. She denies having any evidence of coronary artery disease at her knowledge when she underwent a TAVR replacement several years ago. PAST MEDICAL HISTORY: Please refer the notes dictated by the nurse practitioner. SOCIAL HISTORY: Please refer the notes dictated by the nurse practitioner. FAMILY HISTORY: Please refer the notes dictated by the nurse practitioner. REVIEW OF SYSTEMS: Please refer the notes dictated by the nurse practitioner. MEDICATIONS: Please refer the notes dictated by the nurse practitioner. ALLERGIES: PLEASE REFER THE NOTES DICTATED BY THE NURSE PRACTITIONER. PHYSICAL EXAMINATION: GENERAL: Reveals a very pleasant, well-developed female, elderly lady, who is in no acute distress at this time. She is oriented. VITAL SIGNS: Her blood pressure is 134/60, heart rate is anywhere between 100 to 130, respiratory rate is approximately 17 to 20, O2 saturations are 99% on 3 L. HEENT: Reveals the head to be normocephalic and atraumatic. She has evidence of a left prior radical neck dissection apparently. Her carotid pulses are present. Did not hear any significant bruits. CHEST: She does have bibasilar rales noted. Decreased breath sounds are noted also at the bases. CARDIOVASCULAR: Reveals a regular, tachycardia. She does not have any gross murmurs. She does have a soft systolic murmur of the aortic area. This radiates up toward the carotids. She has also systolic murmur at the apex. ABDOMEN: Soft. She has normal bowel sounds. No masses or tenderness. EXTREMITIES: Showed no clubbing or cyanosis. She had mild lower extremity edema. Pedal pulses were difficult to palpate. SKIN: Warm and dry. NEUROLOGIC: She appears to be fully intact. She has normal strength and tone. She is able to ambulate to the bathroom. IMAGING STUDIES: EKG shows what appears to be an atrial flutter, most likely with a 2:1 block. One of the EKGs appeared to be possibly atrial tachycardia, but this does appear to be atrial flutter. At one point in time, it almost looks like atrial fibrillation. We will need to re-evaluate when the heart is under better control. Hopefully, the diltiazem which has been initiated will help to lower the heart rate. If necessary, we may also need to add digoxin or beta blockers in order to lower the heart rate, but with her COPD, I will be somewhat hesitant to add too many beta blockers. IMPRESSION: 1. Congestive heart failure exacerbation due to rapid heart rate associated with atrial fibrillation or flutter. We will try to control the heart rate. She had an echocardiogram back in September, which showed an EF of 55% to 60%. with mild left atrial dilatation. She also had a normal functioning bioprosthetic valve in the aortic position as well as mild aortic valve stenosis. 2. History of aortic valve replacement by TAVR. This apparently is functioning normally. I do not believe she has any significant stenosis that would cause her to have congestive heart failure. 3. Chronic obstructive pulmonary disease. She has been followed by the reiki practitioner. Her O2 saturation are stable on 3 L at this time. I suspect when she has further diuresis, then the O2 saturations will improve. She also apparently has had chronic bilateral pleural effusions. These may be worse than what she has had in the past that we will continue the diuretics at this time. The most important is to control the heart rate and continue diuresis. Also, please note that she has admitted that she drinks quite a bit of fluid during the day, more so than her loud amount should be. She drinks 2 large diet drinks today and she also drinks coffee as well as other water. We more than happy to continue to follow the patient with you at this time. Other than the tachycardia and the congestive heart failure, she actually is doing quite well given her age. Job ID: [id number]
--- NOTE | 2019-02-13 00:10 | HP ---
PRIMARY CARE PHYSICIAN: Ginny Salazar MD STRINGING MACHINE OPERATOR: Ric Cain MD GEOTECHNICAL ENGINEERING TECHNICIAN: Dominic Phelps MD CHIEF COMPLAINT: Shortness of breath. HISTORY OF PRESENT ILLNESS: Ms. Dickinson is an 88-year-old female, who was brought into the emergency room today by her daughter for a week of shortness of breath, dyspnea, worse with dyspnea on exertion and fluid overload. The patient also reports that her heart rate has been elevated. Denies any chest pain, nausea, vomiting, or diaphoresis. She also reports significant hypoxia. When she got to triage today, she was 61% on room air. The patient reports that she normally wears oxygen at bedtime, but it is noted that she has had to use it more often. The patient's initial workup in the emergency room with an initial troponin of 0.010, BNP 644, alkaline phosphatase 125, glucose 173, BUN 33, hemoglobin 10.7, white blood cell count 5.7, hematocrit is 35.6, and platelet count 416. The patient underwent a CTA of the chest, which showed no CT evidence of pulmonary emboli, or aneurysm, or dissection. Two bilateral pleural effusions, left larger than right. 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 It is noted within the findings that along with the bilateral pleural effusions, there was some adjacent infiltrate/atelectatic changes. She was found to be improved with some oxygenation on 3 L. She was 99% on oxygenation. The patient admitted to the telemetry unit for further management. The patient reports that she has been seeing Dr. Cain and they have been increasing her Lasix daily without much relief. REVIEW OF SYSTEMS: The patient reports hypoxia. Reports dyspnea on exertion. Reports increased oxygen use. Denies any chest pain, palpitations, diaphoresis, nausea, or vomiting. The patient reports edema to bilateral lower legs. All systems are reviewed and are negative unless mentioned in the HPI. PAST MEDICAL HISTORY: Chronic diastolic heart failure, COPD, history of atrial fibrillation, coronary artery disease, thyroid cancer with radiation and surgical correction, bilateral cataract surgery, breast cancer, in which she had a lumpectomy, radiation and chemo, and then bladder cancer, which was resected in 2019. SURGICAL HISTORY: TAVR in 2016, cataract surgery, thyroid surgery, bladder resection. FAMILY HISTORY: The patient's father had bladder cancer. Brother, enlarged prostate, hypertension. SOCIAL HISTORY: The patient is a , lives in assisted living. She has 4 children. She stopped smoking 12 years ago. She does have a history of smoking 2 packs a day for 30 to 40 years. She drinks 1 glass of wine per day. Denies any drug use. She does not adhere to a low-salt diet. She does exercise 4 times a week. ALLERGIES: TO SULFA, LATEX, ADHESIVE TAPE. HOME MEDICATIONS: 1. Albuterol. 2. ProAir inhaler 2-4 puffs q.i.d. as needed. 3. Zyloprim 1 tablet 300 mg p.o. daily. 4. Aspirin 81 mg p.o. daily. 5. Vitamin D 2000 units p.o. daily. 6. Advair 250/50 q.a.m. 7. Levothyroxine 200 mcg p.o. daily. 8. Mag-Ox 400 mg p.o. at bedtime. 9. Multivitamin 1 tablet p.o. daily. 10. Lasix, she takes 60 mg p.o. daily. 11. DuoNeb nebulizer q.4 hours as needed. 12. Potassium chloride 20 mEq p.o. daily. PHYSICAL EXAMINATION: VITAL SIGNS: Blood pressure is 138/64, pulse is 111, respiratory rate is 25, pO2 saturations are 100% on 3 L. CONSTITUTIONAL: The patient appears nontoxic. She is alert and oriented to person, place, and time. HEENT: Head is atraumatic and normocephalic. Eyes, pupils are equally round and reactive to light. Extraocular muscles are intact. ENT; mouth exam is normal. Mucous membranes are moist. NECK: Normal range of motion. Trachea is midline. RESPIRATORY/CHEST: Diminished. Chest expansion is equal. CARDIOVASCULAR: Irregularly irregular. Heart sounds are normal. ABDOMEN: Nontender. Bowel sounds are heard. BACK: Normal range of motion. No tenderness. EXTREMITIES: Upper extremity, normal range of motion. Motor strength is normal. Radial pulses are normal. Lower extremity; normal range of motion. Sensation intact. Pedal pulses are normal. There is +1 edema noted bilaterally. NEUROLOGIC: The patient is oriented to person, place, and time. Speech is normal. SKIN: Warm, dry, normal in color. PSYCHIATRIC: Has a normal affect. EKG in the emergency room shows sinus tach, beats per minute 129, nonspecific ST and T-waves. ASSESSMENT AND PLAN: 1. Atrial flutter with rapid ventricular response. This was discovered when she got to telemetry. Cardiology was consulted. She was given 1 dose of Lopressor when she got to the floor, which improved her heart rate, but it bounced back up into the 120s to 130s. Cardiology started a Cardizem drip. The patient believes that she has had an echocardiogram in the last 6 months, this must have been done in the office. If this is not the case, we will order an echocardiogram. Lovenox 1 mg/kg b.i.d. 2. Congestive heart failure exacerbation. BNP is 644 with some worsening edema. Lasix 40 mg IV b.i.d. Echocardiogram if it has not been done in the last year. 3. Dyspnea and hypoxia, multifactorial. We have asked Pulmonology to consult since patient sees Dr. Phelps as an outpatient. CTA with bilateral pleural effusions with possible infiltrates. We have added some antibiotics that can deescalate these as pulmonology does not think this is infective. DuoNebs q.6 hours. We have restarted home Dulera. 4. Hypothyroidism. We will check TSH. Restart home medications. 5. Gastrointestinal prophylaxis has been started. 6. The patient's code status was discussed with patient and daughter at the bedside. The patient prefers to be a chemical code only. Does not wish to be intubated. Does not wish to have CPR. Her daughter and son are surrogate decision makers. 7. Hospital course dependent on clinical findings. Job ID: [id number]
[2019-02-13 05:59] LABS: ALT (SGPT) 18 U/L (8-55); AST (SGOT) 12 U/L (5-34); Alkaline Phosphatase 89 U/L (40-110); Anion Gap 9 mmol/L (10-20); BUN (Urea Nitrogen) 25 mg/dL (9.8-20.1); Bilirubin, Total 0.3 mg/dL (0.2-1.2); Calc. Creatinine Clearance 46 mL/min (70-130); Calcium 8.7 mg/dL (7.8-10.44); Carbon Dioxide 31 mmol/L (23-31); Chloride 107 mmol/L (98-107); Estimated GFR-MDRD 61; Globulin 2.6 g/dL (2.4-3.5); Glucose 131 mg/dL (83-110); Potassium 4.1 mmol/L (3.5-5.1); Protein, Total 5.6 g/dL (6.0-8.3); Sodium 143 mmol/L (136-145)
[2019-02-13] MEDS: Furosemide 40 MG/4 ML VIAL SLOW IVP SCH ×2 (06:10→12:06)
[2019-02-13] MEDS: Levothyroxine Sodium 100 MCG TAB PO SCH (06:10)
[2019-02-13 07:17] LABS: #Eosinphils 0.2 thou/uL (0.0-0.7); #Lymphocytes 0.5 thou/uL (1.20-3.40); #Monocytes 0.3 thou/uL (0.11-0.59); #Neutrophils 2.8 thou/uL (1.40-6.50); %Lymphocytes 13.7 % (21.0-51.0); %Monocytes 8.3 % (0.0-10.0); Hemoglobin 8.8 g/dL (12.0-16.0); Mean Corpuscular HGB CONC 32.1 g/dL (32.0-36.0); Mean Corpuscular Hemoglobin 42.1 pg (27.0-31.0); Mean Platelet Volume 9.4 fL (7.4-10.4); Platelet Count 300 thou/uL (130-400); Red Blood Cell (RBC) Count 2.08 mill/uL (4.20-5.40); White Blood Cell (WBC) Count 3.8 thou/uL (4.8-10.8)
[2019-02-13] MEDS: Mometasone/Formoterol 120 PUFF INHALER INH SCH (07:29)
[2019-02-13] MEDS ORDERED: Enoxaparin Sodium 30 MG/0.3 ML SYRINGE SC SCH (09:00)
[2019-02-13] MEDS: Allopurinol 300 MG TAB PO SCH (10:25)
[2019-02-13] MEDS: Aspirin Chewable 81 MG TAB PO SCH (10:25)
--- NOTE | 2019-02-13 12:21 | RAD ---
PORTABLE CHEST 1 VIEW: Date: 02/13/19 Time: 1101 hours HISTORY: Pleural effusion. FINDINGS/IMPRESSION: The heart size is enlarged. The aorta is tortuous. There is a left-sided Port-A-Cath with tip in the SVC. There is pulmonary vascular congestion with bilateral pleural effusions, left larger than right. No definite pneumothoraces are seen. POS: [facility]
[2019-02-13] MEDS ORDERED: Diltiazem 125 MG in Sodium Chloride 0.9% 100 ML IVPB SCH ×2 (14:32→16:26)
--- NOTE | 2019-02-13 14:33 | PDOC.CPN ---
- Subjective Date: 02/13/19 Time: 14:44 Interval history: The pt seen and examined. No overnight events. No cardiac complaints. - Objective Allergies/Adverse Reactions: Allergies Allergy/AdvReac Type Severity Reaction Status Date / Time adhesive tape Allergy Verified 07/13/18 09:38 latex Allergy Verified 02/12/19 15:19 Sulfa (Sulfonamide Allergy Verified 07/13/18 09:38 Antibiotics) Visit Medications: Current Medications Albuterol/Ipratropium (Duoneb) 3 ml NEB [id number] [facility] Last Admin: 02/13/19 13:55 Dose: 3 ml Allopurinol (Zyloprim) 300 mg PO DAILY [facility] Last Admin: 02/13/19 10:25 Dose: 300 mg Aspirin (Aspirin Chewable) 81 mg PO DAILY [facility] Last Admin: 02/13/19 10:25 Dose: 81 mg Enoxaparin Sodium (Lovenox) 70 mg SC 2100 REFUGIO Famotidine (Pepcid) 20 mg PO 2100 [facility] Last Admin: 02/12/19 20:22 Dose: 20 mg Furosemide (Lasix) 40 mg SLOW IVP 0600,1400 [facility] Last Admin: 02/13/19 12:06 Dose: 40 mg Azithromycin 500 mg/ Sodium (Chloride) 250 mls @ 250 mls/hr IVPB Q24HR REFUGIO Last Admin: 02/12/19 18:31 Dose: 250 mls Ceftriaxone Sodium 1 gm/ (Sodium Chloride) 100 mls @ 200 mls/hr IVPB Q24HR REFUGIO Last Admin: 02/12/19 17:34 Dose: 100 mls Diltiazem HCl 125 mg/ Sodium (Chloride) 125 mls @ 10 mls/hr IVPB INF REFUGIO; Protocol Levothyroxine Sodium (Synthroid) 200 mcg PO 0600 [facility] Last Admin: 02/13/19 06:10 Dose: 200 mcg Magnesium Oxide (Magnesium Oxide) 400 mg PO HS REFUGIO Mometasone Furoate/Formoterol Fumar (Dulera 200 Mcg/5 Mcg Inhaler) 2 puff INH DAILY-RT [facility] Last Admin: 02/13/19 07:29 Dose: 2 puff Senna/Docusate Sodium (Senokot S) 2 tab PO BID PRN PRN Reason: Constipation Sodium Chloride (Flush - Normal Saline) 10 ml IVF PRN PRN PRN Reason: Saline Flush Vital Signs & Weight: Vital Signs Temp Pulse Resp BP Pulse Ox 02/13/19 13:55 110 H 18 93 L 02/13/19 11:38 97.8 F 102 H 16 142/66 H 96 02/13/19 07:44 98.3 F 102 H 24 H 157/70 H 94 L 02/13/19 07:31 95 02/13/19 07:28 113 H 20 95 02/13/19 04:00 97.9 F 116 H 16 153/70 H 93 L 02/13/19 02:52 94 L Weight 142 lb 11.2 oz - Physical Exam General: alert & oriented x3 HEENT: mucus membranes moist Neck: supple neck Cardiac: irregularly regular Lungs: decreased breath sounds Neuro: cranial nerve 2-12 intact Abdomen: unremarkable Extremities: no cyanosis Skin: clear Musculoskeletal: decreased range of motion - Labs Result Diagrams: 02/13/19 06:15 02/13/19 04:49 Troponin/CKMB CK-MB (CK-2) 1.7 ng/mL (0-6.6) 02/12/19 11:38 Troponin I 0.010 ng/mL (< 0.028) 02/12/19 11:38 - Telemetry Supraventricular conduction: atrial fibrillation - Assessment/Plan Assessment/Plan: 1. Afib with RVR - cont. titrating Diltiazem drip; Her BP has been stable with the drip; Lovenox BID 2. Acute on Chronic diastolic HF with EF 60-65% with prob dd - BLE edema and SOB have been stable with Lasix 40mg IV BID; will start SANDI/ARB with stable VS with Diltiazem; not on BBlocker due to hx of COPD; fluid and salt intake education given to the pt and family; 1500ml/day fluid restriction 3. S/p TAVR in 2016 - Echo on 02/13/2019 with normal function 4. COPD - stable with 2LNC 5. HTN MAR reviewed
[2019-02-13] MEDS: cefTRIAXone\\ROCEPHIN 1 GM in Sodium Chloride 0.9% 100 ML IVPB SCH (16:08)
[2019-02-13] MEDS: Azithromycin 500 MG in Sodium Chloride 0.9% 250 ML 250 ML IVPB SCH (16:48)
[2019-02-13] MEDS ORDERED: Acetaminophen 325 MG TAB PO PRN (17:31)
--- NOTE | 2019-02-13 18:22 | PDOC.HOSPP ---
- Subjective Encounter Date: 02/13/19 Encounter Time: 17:00 Subjective: Patient reports no improvement in her shortness of breath. She wears oxygen only at night. She denies chest pain. She denies cough. Was drinking excess water prior to admission Complains of muscle cramps in her legs. - Objective Vital Signs & Weight: Vital Signs (12 hours) Temp Pulse Resp BP Pulse Ox 02/13/19 16:15 98.5 F 113 H 19 153/64 H 94 L 02/13/19 13:55 110 H 18 93 L 02/13/19 11:38 97.8 F 102 H 16 142/66 H 96 02/13/19 07:44 98.3 F 102 H 24 H 157/70 H 94 L 02/13/19 07:31 95 02/13/19 07:28 113 H 20 95 Weight Weight 142 lb 11.2 oz I&O: 02/12/19 02/13/19 02/14/19 06:59 06:59 06:59 Intake Total 600 Balance 600 Result Diagrams: 02/13/19 06:15 02/13/19 04:49 Hospitalist ROS - Review of Systems Constitutional: denies: fever, sweats - Medication Medications: Active Medications Generic Name Dose Route Start Last Admin Trade Name Freq PRN Reason Stop Dose Admin Acetaminophen 650 mg 02/13/19 17:31 02/13/19 17:39 Tylenol PO 650 mg Q6H PRN Administration Pain Albuterol/Ipratropium 3 ml 02/12/19 19:00 02/13/19 13:55 Duoneb NEB 3 ml [id number] REFUGIO Administration Allopurinol 300 mg 02/13/19 09:00 02/13/19 10:25 Zyloprim PO 300 mg DAILY REFUGIO Administration Aspirin 81 mg 02/13/19 09:00 02/13/19 10:25 Aspirin Chewable PO 81 mg DAILY REFUGIO Administration Famotidine 20 mg 02/12/19 21:00 02/12/19 20:22 Pepcid PO 20 mg 2100 REFUGIO Administration Furosemide 40 mg 02/13/19 06:00 02/13/19 12:06 Lasix SLOW IVP 40 mg 0600,1400 REFUGIO Administration Azithromycin 500 mg/ Sodium 250 mls @ 250 mls/hr 02/12/19 17:00 02/13/19 16: 48 Chloride IVPB 250 mls Q24HR REFUGIO Administration Ceftriaxone Sodium 1 gm/ 100 mls @ 200 mls/hr 02/12/19 16:00 02/13/19 16:08 Sodium Chloride IVPB 100 mls Q24HR REFUGIO Administration Levothyroxine Sodium 200 mcg 02/13/19 06:00 02/13/19 06:10 Synthroid PO 200 mcg 0600 REFUGIO Administration Mometasone Furoate/Formoterol Fumar 2 puff 02/13/19 07:00 02/13/19 07:29 Dulera 200 Mcg/5 Mcg Inhaler INH 2 puff DAILY-RT REFUGIO Administration - Exam General Appearance: NAD, awake alert Eye: PERRL, anicteric sclera ENT: normocephalic atraumatic, no oropharyngeal lesions Neck: supple, symmetric, no JVD Heart: no murmur, no gallops, no rubs, irregular Heart - other findings: irregular rate and rhythm Respiratory: CTAB, no wheezes, no rales, no ronchi Gastrointestinal: soft, non-tender, non-distended, normal bowel sounds Extremities: no cyanosis, no clubbing, no edema Skin: normal turgor, no lesions, no rashes Neurological: cranial nerve grossly intact, normal sensation to touch, no focal deficits, no new deficit Hosp A/P - Plan ECHO: EF 60-65%, diastolic dysfunction Chest X ray 02/13: bilateral pleural effusions right greater than left CTA: no PE. Mediastinal LAD, emphysema, AVM right lower lobe This is 88 year old female who came in for dyspnea on exertion, found to have pulmonary edema on X ray, and in aflutter with RVR Acute CHF exacerbation - patients weight has decreased by 2 pounds, continue 40 mg IV lasix bid. Ches tXray still shows pulm edema. Trop neg x 1. ECHO no wall motion abnormalities - daily weights - cardiology following Aflutter with RVR - cardizem drip 15 mcg/hr, maxed out - will load with digoxin 0.25 now, then q6 hours for 3 doses - cardiology may consider metolazone tomorrow - lovenox BID - continue aspirin - keep Mg > 2, K> 4 Muscle cramps - tylenol prn. Check magnesium level Hypothyroidism- levothyroxine Gout - continue allopurinol Code status: DNI, chemical code only
[2019-02-13] MEDS ORDERED: Digoxin 0.5 MG/2 ML AMP SLOW IVP SCH (18:30)
[2019-02-13] MEDS ORDERED: Magnesium Oxide 400 MG TAB PO SCH (21:00)
[2019-02-13] MEDS ORDERED: Enoxaparin Sodium 80 MG/0.8 ML SYRINGE SC SCH (21:00)
[2019-02-13] MEDS ORDERED: Enoxaparin Sodium 60 MG/0.6 ML SYRINGE SC SCH (21:00)
[2019-02-13] MEDS: Enoxaparin Sodium 60 MG/0.6 ML SYRINGE SC SCH (22:03)
[2019-02-13] MEDS: Famotidine 20 MG TAB PO SCH (22:03)
--- NOTE | 2019-02-13 23:04 | CON ---
DATE OF CONSULTATION: 02/13/2019 HISTORY OF PRESENT ILLNESS: Ms. Dickinson is an 88-year-old female with COPD. She is followed by Dr. Phelps. She presented with rapid atrial fibrillation and shortness of breath. She says she was feeling great prior to the onset of this. I was consulted for an abnormal chest x-ray and her shortness of breath. She denies cough, chest congestion, purulent sputum, or hemoptysis. She denies chest pain. Her heart issues have been followed by Dr. Cain. PAST MEDICAL HISTORY: Remarkable for; 1. COPD. 2. History of TAVR several years back. 3. History of normal ejection fraction. 4. History of [id number]-yh-aksdvenl mitral regurgitation. 5. History of diastolic heart failure. 6. Past history of atrial fibrillation. 7. History of thyroid cancer at age 25. 8. History of coronary artery disease. 9. History of breast cancer. 10. History of bladder cancer. 11. History of cataract surgery. SOCIAL HISTORY: Former smoker. Drinks wine in the evening. FAMILY HISTORY: Negative for lung disease in early age. There is a history of hypertension in the family. MEDICATIONS: Prior to admission; 1. Synthroid. 2. Allopurinol. 3. ProAir. 4. Aspirin. 5. Magnesium. 6. Advair. 7. Lasix. 8. Potassium. 9. DuoNeb. 10. Xdjv-dpy-xrekoxa medicines. ALLERGIES: SHE REPORTS AN ALLERGY TO SULFA. REVIEW OF SYSTEMS: 10-point review of systems completed, otherwise negative. PHYSICAL EXAMINATION: VITAL SIGNS: Blood pressure is 157/70, heart rate is 102 to 110 this morning, she is afebrile, respiratory rates in the high teens. Oximetry is 94% on 2 to 3 L. GENERAL: She is in no distress at rest. HEAD NECK EXAM: Unremarkable. LUNGS: Remarkable for crackles at her lung bases. She has no wheezes. HEART: Irregular rhythm. S1 and S2 are normal. Grade 1/6 to 2/6 systolic murmur. ABDOMEN: Soft and nontender. EXTREMITIES: Without clubbing, cyanosis, or edema NEUROLOGIC: Nonfocal. DATA REVIEWED: Chest radiograph and chest CT have been reviewed. She has a pseudotumor and a minor fissure. 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 She has bilateral pleural effusions. IMPRESSION: Dyspnea secondary to rapid atrial fibrillation in the setting of diastolic dysfunction. I do not feel this is a chronic obstructive pulmonary disease exacerbation. We will be happy to follow the other physicians caring for the patient. This is a 50-minute consult, greater than 50% of time spent on the unit coordinating care. Job ID: [id number] MTDD
[2019-02-14] MEDS: Digoxin 0.5 MG/2 ML AMP SLOW IVP SCH ×2 (00:27→06:05)
[2019-02-14 04:12] VITALS: BP 130/63
[2019-02-14 05:33] LABS: Hemoglobin 9.5 g/dL (12.0-16.0); Mean Platelet Volume 10.1 fL (7.4-10.4); Platelet Count 267 thou/uL (130-400); RBC Distribution Width 14.9 % (11.5-14.5); Red Blood Cell (RBC) Count 2.21 mill/uL (4.20-5.40); White Blood Cell (WBC) Count 5.7 thou/uL (4.8-10.8)
[2019-02-14 06:02] LABS: Anion Gap 18 mmol/L (10-20); BUN (Urea Nitrogen) 26 mg/dL (9.8-20.1); Calc. Creatinine Clearance 42 mL/min (70-130); Calcium 8.8 mg/dL (7.8-10.44); Carbon Dioxide 21 mmol/L (23-31); Chloride 107 mmol/L (98-107); Estimated GFR-MDRD 56; Glucose 121 mg/dL (83-110); Magnesium 2.3 mg/dL (1.6-2.6); Potassium 4.2 mmol/L (3.5-5.1); Sodium 142 mmol/L (136-145)
[2019-02-14] MEDS: Furosemide 40 MG/4 ML VIAL SLOW IVP SCH ×2 (06:07→14:40)
[2019-02-14] MEDS: Levothyroxine Sodium 100 MCG TAB PO SCH (06:08)
--- NOTE | 2019-02-14 07:36 | PDOC.EVN ---
Event Note - Event Note Event Note: Regan Hou called on patient because she became progressively more bradycardic and unresponsive and then lost a pulse. The resident team responded to the code (Dr. Angel, Dr. Patel, Dr. Durand). Pt was chemical code only. First dose of epinephrine being given as we were walking into the room. Pt regained pulse after this single dose of epi with HR in 90s-100s and SBP in the 170s. She continued to breathe agonally and we were unable to get an oxygen saturation. Her daughter was called and she confirmed the patients desire to not be intubated. RT continued to bag the patient until non-rebreather placed until daughter able to arrive. Addendum - Attending - Attending Attestation Date/Time: 02/14/19 [id number] I personally evaluated the patient and discussed the management with Dr. Patel. I agree with the History, Examination, Assessment and Plan documented above with any addition or exceptions noted below. Care handed off to Sound attending. We are available if code status changes. She maintained BP for the duruation of our time in the room.
[2019-02-14 07:41] LABS: Digoxin 4.16 ng/mL (0.8-2.0)
--- NOTE | 2019-02-14 07:49 | PDOC.EVN ---
Event Note - Event Note Event Note: Ms. Dickinson was seen due to cardiac arrest. She had an episode of bradycardia, and became unresponsive. CPR was initiated immediately. She had return of her heart rate back to the 70-80's and blood pressure was abut 150-170 systolic within a few minutes. However she is unresponsive and has agonal breathing. 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 She is Do not intubate, and therefore intubation was not performed. Her daughter says she still does not want her mother to be intubated. Given this mornings evens, the would like to change her status to comfort care only.
[2019-02-14] MEDS ORDERED: Morphine 2 MG/ML SYRINGE SLOW IVP PRN (07:55)
[2019-02-14] MEDS ORDERED: SODIUM CHLORIDE 0.9% IVPB ONE (08:41)
[2019-02-14] MEDS ORDERED: DIGOXIN IMMUNE FAB IVPB ONE (08:41)
--- NOTE | 2019-02-14 08:53 | PDOC.HOSPP ---
- Subjective Encounter Date: 02/14/19 Encounter Time: 08:20 Subjective: This morning patient had a 12 second pause around 7 am and heart rate went into the 20's. Patient did not lose her pulse per nursing staff. She received one dose of epinephrine heart rate and blood pressure came back to normal. Patient currently is not following commands, has agonal breathing. She is currently on a venti-mask Discussed with patient's daughter, she is interested in trying BIPAP. Patient does have history of COPD. She was wheezing yesterday but it appeared to be more related to heart failure. She is interested in getting labs but if she doesn't recover after BIPAP then she will consider no invasive measures. - Objective Vital Signs & Weight: Vital Signs (12 hours) Temp Pulse Resp BP Pulse Ox 02/14/19 06:05 111 H 02/14/19 04:00 97.8 F 111 H 18 130/63 92 L 02/14/19 01:50 102 H 18 92 L 02/14/19 00:27 110 H 02/13/19 21:31 98.8 F 103 H 18 152/66 H 95 Weight Weight 142 lb 11.2 oz I&O: 02/13/19 02/14/19 02/15/19 06:59 06:59 06:59 Intake Total 600 1660 Output Total 1350 Balance 600 310 Result Diagrams: 02/14/19 07:05 02/14/19 04:45 Additional Labs: Accuchecks 02/14/19 07:02 POC Glucose 251 H Hospitalist ROS - Review of Systems Constitutional: denies: fever, chills - Medication Medications: Active Medications Generic Name Dose Route Start Last Admin Trade Name Freq PRN Reason Stop Dose Admin Acetaminophen 650 mg 02/13/19 17:31 02/13/19 17:39 Tylenol PO 650 mg Q6H PRN Administration Mild-Moderate Pain (1-5) Albuterol/Ipratropium 3 ml 02/12/19 19:00 02/14/19 01:50 Duoneb NEB 3 ml [id number] REFUGIO Administration Allopurinol 300 mg 02/13/19 09:00 02/13/19 10:25 Zyloprim PO 300 mg DAILY REFUGIO Administration Aspirin 81 mg 02/13/19 09:00 02/13/19 10:25 Aspirin Chewable PO 81 mg DAILY REFUGIO Administration Enoxaparin Sodium 60 mg 02/13/19 21:00 02/13/19 22:03 Lovenox SC 60 mg 0900,2100 REFUGIO Administration Famotidine 20 mg 02/12/19 21:00 02/13/19 22:03 Pepcid PO 20 mg 2100 REFUGIO Administration Furosemide 40 mg 02/13/19 06:00 02/14/19 06:07 Lasix SLOW IVP 40 mg 0600,1400 REFUGIO Administration Azithromycin 500 mg/ Sodium 250 mls @ 250 mls/hr 02/12/19 17:00 02/13/19 16: 48 Chloride IVPB 250 mls Q24HR REFUGIO Administration Ceftriaxone Sodium 1 gm/ 100 mls @ 200 mls/hr 02/12/19 16:00 02/13/19 16:08 Sodium Chloride IVPB 100 mls Q24HR REFUGIO Administration Diltiazem HCl 125 mg/ Sodium 125 mls @ 15 mls/hr 02/13/19 16:26 02/14/19 02: 20 Chloride IVPB 125 mls INF REFUGIO Administration Protocol 15 MG/HR Levothyroxine Sodium 200 mcg 02/13/19 06:00 02/14/19 06:08 Synthroid PO 200 mcg 0600 REFUGIO Administration Magnesium Oxide 400 mg 02/13/19 21:00 02/13/19 22:03 Magnesium Oxide PO 400 mg HS REFUGIO Administration Mometasone Furoate/Formoterol Fumar 2 puff 02/13/19 07:00 02/13/19 07:29 Dulera 200 Mcg/5 Mcg Inhaler INH 2 puff DAILY-RT REFUGIO Administration - Exam General Appearance: ill appearing General - other findings: patient with agonal breathing on venti-mask Eye: PERRL, anicteric sclera ENT: normocephalic atraumatic, no oropharyngeal lesions Neck: supple, symmetric, no JVD, no thyromegaly Respiratory: wheezes Respiratory - other findings: has bronchial wheezing Gastrointestinal: soft, non-tender, non-distended Extremities: no cyanosis, no clubbing, no edema Hosp A/P - Plan ECHO: EF 60-65%, diastolic dysfunction Chest X ray 02/13: bilateral pleural effusions right greater than left CTA: no PE. Mediastinal LAD, emphysema, AVM right lower lobe This is 88 year old female who came in for dyspnea on exertion, found to have pulmonary edema on X ray, and in aflutter with RVR Acute hypoxic respiratory failure secondary to CHF exacerbation Possible COPD exacerbation - was on lasix 40 mg IV bid. Recheck Chest X ray today . Held off on steroid yesterday to avoid aggravating heart failure - will check ABG to evaluate hypercapnea, consider steroids if significantly hypercapneic and wheezing - cardiology following Aflutter with RVR - currently heart rate is controlled, discontinue cardizem drip, discontinue digoxin - digoxin level high but checked one hour after 6 am dose - continue aspirin, lovenox bid - keep Mg > 2, K> 4 - TSH low, will add free T4 Acute encephalopathy - had agonal breathing after pause. ABG ordered - seems to be responding better now, trial of BIPAP Muscle cramps - tylenol prn. Mg level normal Hypothyroidism- levothyroxine Gout - continue allopurinol Code status: DNI, chemical code only
[2019-02-14 09:03] LABS: Hemoglobin 9.7 g/dL (12.0-16.0); Mean Corpuscular HGB CONC 29.1 g/dL (32.0-36.0); Mean Corpuscular Hemoglobin 39.7 pg (27.0-31.0); Mean Platelet Volume 10.4 fL (7.4-10.4); Platelet Count 428 thou/uL (130-400); RBC Distribution Width 15.1 % (11.5-14.5); Red Blood Cell (RBC) Count 2.45 mill/uL (4.20-5.40); White Blood Cell (WBC) Count 10.2 thou/uL (4.8-10.8)
--- NOTE | 2019-02-14 09:12 | RAD ---
XR Chest 1 View Portable History: Agonal breathing Comparison: Radiograph prior day Findings: Large bilateral effusions. Heart size is enlarged. Port catheter is unchanged. Markedly pulmonary edema. Progressive opacification right upper lobe. No acute osseous abnormality. Heart size is enlarged. Defibrillator pad projects over the chest. Prior percutaneous aortic valve replacement. Impression: Progressive pulmonary edema and congestive heart failure.
[2019-02-14 09:28] LABS: Lactic Acid 2.9 mmol/L (0.5-2.2)
--- NOTE | 2019-02-14 09:31 | PRG ---
DATE OF SERVICE: 02/14/2019 SUBJECTIVE: Ms. Dickinson suffered an arrest today. The patient previously had tachycardia, but developed bradycardia. There was a Code Blue. The patient did receive epinephrine. Heart rate came back up into the 90 to 100, systolic blood pressure 170s. However, the patient continued to have very shallow breathing. On my arrival, the patient is unresponsive, but breathing very shallow. Discussed again the code status with family member. The family member states that the patient was adamant. She did not wish to be intubated as she was worried she would never come off the breathing machine. The patient does remain agonal at the present time. OBJECTIVE: VITAL SIGNS: Blood pressure 130/60 and pulse is 80 to 90, it is irregular. LUNGS: Clear, but there is very little air movement. CARDIAC: Irregularly irregular. ABDOMEN: Soft and nontender. EXTREMITIES: Still warm. NEUROLOGIC: The patient's mentions unresponsive. ASSESSMENT AND PLAN: 1. Respiratory failure. 2. 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 The patient does have elevated digoxin levels at 4.16 digoxin toxicity. At the present time, her problem appears to be primarily pulmonary. However, she is moving very little air, can discuss with the family, the patient's wishes. She does not wish to be intubated. I will give her a trial of BiPAP. It is unclear whether that be successful, but the family wishes everything to be possibly done. Therefore, we will give her an attempt at BiPAP. The patient otherwise looks like she is most likely terminal. Prognosis is very guarded to poor. Job ID: [id number]
[2019-02-14] MEDS ORDERED: Lorazepam 2 MG/ML VIAL SLOW IVP PRN (09:49)
[2019-02-14] MEDS ORDERED: Furosemide 40 MG/4 ML VIAL SLOW IVP SCH (10:00)
[2019-02-14] MEDS ORDERED: Furosemide 100 MG/10 ML VIAL SLOW IVP SCH (10:00)
[2019-02-14] MEDS: Morphine 2 MG/ML SYRINGE SLOW IVP PRN ×4 (10:06→21:27)
--- NOTE | 2019-02-14 10:17 | PRG ---
DATE OF SERVICE: 02/14/2019 TIME SPENT: 30 minutes of critical care time. SUBJECTIVE: Ms. Dickinson has taken a turn for the worse today. She was transferred to the [facility] from the floor to initiate BiPAP after episode of severe shortness of breath and an episode of bradycardia. I saw the patient at the bedside. I also spoke to the daughter, who was at the bedside. OBJECTIVE: VITAL SIGNS: Her heart rate is now in the 80s, O2 saturation low 90s, respiratory rate 25, temperature 97.8, blood pressure 130/63. GENERAL: She appears somewhat obtunded. She does not like having the BiPAP on. HEENT: Otherwise unremarkable. NECK: No adenopathy or JVD. LUNGS: She has diminished breath sounds in the bases. CARDIAC: S1 and S2. Regular. ABDOMEN: Soft. EXTREMITIES: Edematous. LABORATORY DATA: Sodium 142, potassium 4.2, chloride 107, CO2 of 21, BUN 26, creatinine 0.8, glucose 251. Lactate is 2.9. White blood cell count 10.2, hematocrit 33.4, and platelet count 428. DIAGNOSTIC STUDIES: Her chest x-ray shows bilateral infiltrative changes consistent with either CHF or pneumonitis. ASSESSMENT: 1. Acute on chronic respiratory failure. 2. Diastolic heart failure. 3. Atrial fibrillation. 4. History of reactive airway disease. PLAN: 1. The patient has basically given up and she has related this to the family. She does not want any type of resuscitative measures. I did clarify that with the daughter. When I saw her this morning, she was a chemical code only, but I told the daughter that I thought that would not be a guardado thing to do and the daughter did agree to full DNR status. 2. We can manage the patient with BiPAP for the time being and see if there is anything that will acutely reverse. Other than that, my suggestion will be to focus on comfort. I have written for some morphine and Ativan. Job ID: [id number]
[2019-02-14] MEDS: Mometasone/Formoterol 120 PUFF INHALER INH SCH (10:21)
--- NOTE | 2019-02-14 10:41 | PDOC.EVN ---
Event Note - Event Note Event Note: Had discussion with medical power of insurance defense attorney and daughter together. Patient was uncomfortable with BIPAP, but was given morphine and ativan and now patient is comfortable. Plan is to take mask off if any signs of discomfort again and give morphine and ativan as needed at that time. They want to try additional lasix 40 mg IV for worsening heart failure to see if it would help with her breathing. All other meds discontinued. If patient urinates, plan to change her bedsheet. No anand catheter. Patient will be full DNR, no ACLS meds
--- NOTE | 2019-02-14 13:56 | PDOC.PALCO ---
Palliative Care Consult - Consult Details Requesting Physician: Dr Hilliard Reason for Consult: family support Family Members Present: Daughter and family caregiver Christelle - Pertinent HPI 88 year old female who presented to the emergency room 02/12 with increasing shortness of breath over the past week, more severe with exertion. Also noted to have increase in heart rate over the past week as well. Emergency room evaluation identified elevated BNP, o2 sat of 61% on room air, CT revealed bilateral plural effusions. Placed on 3 liters and o2 sat improved to 99%. Admitted to [facility] for management. 02/14 in the evening patient required resuscitation measures (Not intubated as was a resuscitation measures with no intubation) and was transferred to [facility] for higher level of care. Dr Hilliard spoke with patient two sons via phone and daughter and they transitioned patient to a DNAR with comfort measures. - Social History Smoking Status: Former smoker Smoking: less than 1 pack/day Alcohol Use: daily (Daily glass of wine) Living Situation: other (Assisted living) - Medications MAR Reviewed: Yes - Allergies Allergies/Adverse Reactions: Allergies Allergy/AdvReac Type Severity Reaction Status Date / Time adhesive tape Allergy Verified 07/13/18 09:38 latex Allergy Verified 02/12/19 15:19 Sulfa (Sulfonamide Allergy Verified 07/13/18 09:38 Antibiotics) - Subjective BIPAP on, non verbal at present time. Labored respirations with accessory muscle use. ROS: Unable to obtain a 10 point review secondary to patient non responsive status - Objective Vital Signs: Vital Signs - Most Recent Temp Pulse Resp BP Pulse Ox 98.2 F 87 25 H 130/63 92 L 02/14/19 11:14 02/14/19 09:28 02/14/19 09:28 02/14/19 04:00 02/14/19 09:28 - Physical Exam Constitutional: mild distress Deviation from normal: intermittant facial grimace HEENT: moist MMs Respiratory: tachypnea Deviation from normal: Labored respirations Cardiovascular: RRR Deviation from normal: non responsive at time of assessement Skin: no rash Deviation from normal: Delayed cap refill to lower ext - Problem List (1) Palliative care encounter Code(s): Z51.5 - ENCOUNTER FOR PALLIATIVE CARE Current Visit: Yes Status: Acute (2) COPD (chronic obstructive pulmonary disease) with chronic bronchitis Code(s): J44.9 - CHRONIC OBSTRUCTIVE PULMONARY DISEASE, UNSPECIFIED Current Visit: No Status: Chronic (3) Chronic diastolic CHF (congestive heart failure) Code(s): I50.32 - CHRONIC DIASTOLIC (CONGESTIVE) HEART FAILURE Current Visit: No Status: Chronic (4) Acute on chronic respiratory failure Code(s): J96.20 - ACUTE AND CHR RESP FAILURE, UNSP W HYPOXIA OR HYPERCAPNIA Current Visit: Yes Status: Acute - Plan/Recommendations Plan: Daughter and caregiver at bedside. Daughter gave brief review of patient life, and recent decline. Discussed comfort measures and patient known wishes. Daughter concerned in realation to use of morphine. Discussed dose was used to mitigate respiratory distress and allow ease of respirations. Paitent other sons to arrive this afternoon and evening. Revisited comfort measures and goal of patient comfort, no longer treating disease processes. *Ordered ativan for restlessness 2 mg q 4hr IVP *Support to daughter and caregiver *Education in relation to support and comfort measures verses treatment of disease processes. Diogo Zhu RNdata warehouse specialist to continue to follow patient. [45] minutes spent on this encounter with >50% of the time in counseling and coordination of care. Thank you for this very appropriate consult.
[2019-02-14] MEDS ORDERED: Sodium Chloride 0.9% (PF) 10 ML VIAL ONE (15:00)
[2019-02-14] MEDS ORDERED: EPINEPHrine 1 mg/ml MDV (1ml Charge) ONE (15:00)
[2019-02-14] MEDS: Allopurinol 300 MG TAB PO SCH (15:16)
[2019-02-14] MEDS: Aspirin Chewable 81 MG TAB PO SCH (15:16)
[2019-02-14] MEDS: Enoxaparin Sodium 60 MG/0.6 ML SYRINGE SC SCH (15:17)
--- NOTE | 2019-02-14 15:44 | EKG ---
Test Reason : CODE BLUE Blood Pressure : / mmHG Vent. Rate : 114 BPM Atrial Rate : 059 BPM P-R Int : 000 ms QRS Dur : 086 ms QT Int : 372 ms P-R-T Axes : 000 051 196 degrees QTc Int : 512 ms Atrial fibrillation with rapid ventricular response Abnormal ECG Confirmed by DAVID DAY ([id number]) on 02/14/2019 3:44:21 PM Referred By: ENRIQUETA Confirmed By:DAVID DAY
[2019-02-14] MEDS: Lorazepam 2 MG/ML VIAL SLOW IVP PRN ×2 (18:16→22:19)
--- NOTE | 2019-02-14 22:35 | PDOC.EVN ---
Event Note - Event Note Event Note: Patient's BIPAP mask was taken off due to discomfort. She received 80 mg IV lasix and has had significant urine output. Now she is maintaining saturation of 89% on 4L oxygen. Sister and medical power of rotary drum dyer want additional lasix because they think it is helping her be more comfortable with her breathing. Discussed that she would need BMP to check electrolytes to avoid any arrhythmia caused by too much lasix. Family wants a blood draw. They also asked about resuming her other home medications like allopurinol, discussed that these were not urgent medications. Also discussed with sister that given TSH was low, no need to reorder levothyroxine at this time.
[2019-02-14] MEDS ORDERED: Triple Antibiotic Ointment 30 GM TUBE TOP PRN (23:00)
[2019-02-14 23:10] LABS: Anion Gap 11 mmol/L (10-20); BUN (Urea Nitrogen) 33 mg/dL (9.8-20.1); Calc. Creatinine Clearance 20 mL/min (70-130); Calcium 8.9 mg/dL (7.8-10.44); Carbon Dioxide 30 mmol/L (23-31); Chloride 107 mmol/L (98-107); Estimated GFR-MDRD 24; Glucose 111 mg/dL (83-110); Magnesium 2.5 mg/dL (1.6-2.6); Potassium 5.1 mmol/L (3.5-5.1); Sodium 143 mmol/L (136-145)
[2019-02-15] MEDS ORDERED: Furosemide 100 MG/10 ML VIAL SLOW IVP SCH ×3 (02:00→11:00)
[2019-02-15] MEDS: Morphine 2 MG/ML SYRINGE SLOW IVP PRN ×6 (04:44→21:17)
--- NOTE | 2019-02-15 07:48 | RAD ---
XR Chest 1 View Portable History: Congestive heart failure Comparison: Radiograph prior day Findings: Defibrillator pad projects over left hemithorax. Airspace opacities are similar as well as a bilateral effusions. No pneumothorax. Port catheter is similar. Impression: Similar examination of the chest.
--- NOTE | 2019-02-15 09:44 | PRG ---
DATE OF SERVICE: 02/15/2019 SUBJECTIVE: The patient is somnolent. Her two sons are at the bedside. She actually does not appear to be in any distress at this time. OBJECTIVE: VITAL SIGNS: Her temperature is 99.9 with a T-max of 100.3, pulse 85, blood pressure 152/45. HEENT: Unremarkable. NECK: No adenopathy or JVD. LUNGS: Diminished breath sounds throughout. CARDIAC: S1, S2. Now regular. ABDOMEN: Soft. EXTREMITIES: Edematous. LABORATORY DATA: Sodium 143, potassium 5.1, chloride 107, CO2 of 30, BUN 33, creatinine 2.0, glucose 111 - that was yesterday's chemistry obtained late. ASSESSMENT: 1. Congestive heart failure. 2. Acute on chronic respiratory failure with bilateral infiltrates on x-ray. PLAN: Continue medical management with diuretics, low-flow oxygen, anxiolytics, and morphine. Main issue now is comfort. The family seems to understand. Job ID: [id number]
--- NOTE | 2019-02-15 09:57 | PRG ---
DATE OF SERVICE: 02/15/2019 SUBJECTIVE: Ms. Dickinson is resting comfortably. Her family is in the room. The patient does not appear to be in any distress. OBJECTIVE: VITAL SIGNS: Her blood pressure is 150/50 pulse is 86, it is sinus. LUNGS: Clear. She did not have any wheezing or rhonchi. CARDIAC: Normal S1. Normal S2. ABDOMEN: Soft and nontender. ASSESSMENT: 1. End-stage heart and lung disease. 2. Atrial arrhythmias, currently in sinus rhythm. PLAN: The palliative care is the goal, reduction in prevention of pain and suffering. The patient appears comfortably currently. Job ID: [id number]
[2019-02-15 10:12] LABS: Hemoglobin 9.1 g/dL (12.0-16.0); Mean Corpuscular HGB CONC 30.6 g/dL (32.0-36.0); Mean Corpuscular Hemoglobin 40.7 pg (27.0-31.0); Mean Platelet Volume 9.5 fL (7.4-10.4); Platelet Count 366 thou/uL (130-400); RBC Distribution Width 14.9 % (11.5-14.5); Red Blood Cell (RBC) Count 2.24 mill/uL (4.20-5.40); White Blood Cell (WBC) Count 6.8 thou/uL (4.8-10.8)
[2019-02-15] MEDS: Lorazepam 2 MG/ML VIAL SLOW IVP PRN ×3 (10:23→18:08)
[2019-02-15 10:24] LABS: Anion Gap 15 mmol/L (10-20); BUN (Urea Nitrogen) 39 mg/dL (9.8-20.1); Calc. Creatinine Clearance 18 mL/min (70-130); Calcium 9.4 mg/dL (7.8-10.44); Carbon Dioxide 28 mmol/L (23-31); Chloride 107 mmol/L (98-107); Estimated GFR-MDRD 21; Glucose 110 mg/dL (83-110); Magnesium 3.1 mg/dL (1.6-2.6); Sodium 145 mmol/L (136-145)
[2019-02-15] MEDS ORDERED: VANCOMYCIN IVPB PRN (11:59)
[2019-02-15] MEDS ORDERED: Piperacillin/Tazobactam 2.25 GM in Sodium Chloride 0.9% 100 ML IVPB SCH (12:00)
--- NOTE | 2019-02-15 12:46 | CON ---
DATE OF CONSULTATION: 02/14/2019 ADDITIONAL REFERRING PHYSICIAN: Ric Cain MD HISTORY OF PRESENT ILLNESS: I am seeing Ms. Dickinson at our [facility] ICU as Electrophysiology sap ppm consultant. Her problems are from 1. Persistent atrial flutter with rapid rates. 2. Tachy-jermaine syndrome with marked bradycardia requiring a Code Blue and epinephrine administration, which heart rate. Spontaneous conversion back to sinus rhythm was seen prior to this. Preserved LVEF of 60% to 65%, mild to moderately enlarged right atrium, moderate left atrial enlargement, mild MR, and moderate TR. 3. Respiratory failure. 4. Elevated digoxin levels. ALLERGIES: ADHESIVE TAPE, LATEX, AND SULFA. MEDICATIONS: At home included 1. Levothyroxine. 2. Allopurinol. 3. Albuterol. 4. Aspirin. 5. Magnesium. 6. Vitamin D3. 7. Lutein. 8. Fluticasone. 9. Solu-Medrol. 10. Lasix. 11. Potassium. 12. Ipratropium. SUBJECTIVE: Ms. Dickinson is here with respiratory failure, admitted over the weekend. She was noted to be also in atrial flutter. Her oxygen saturation is now in the 61% on room air. Her BNP was 644, and bilateral pleural effusions were seen. Emphysema is noted. Oxygen supplementation was initiated. For her atrial flutter with rapid rates, IV Cardizem was started as well. The rates were difficult to control, and respiratory status did not markedly improve. She eventually converted back to sinus rhythm this morning. Soon after that, she developed further respiratory distress and eventually became extremely bradycardic. She got epinephrine and she was not intubated according to her wishes, but BiPAP was initiated, and she was transferred to the [facility]. Currently, she is still a very poor historian, dyspneic. Most of the history obtained from nurses and chart. Overall, no symptoms of chest pains. No dizziness or loss of consciousness prior to this and no fever, chills, or cough. Rest of 12-point review of system otherwise unremarkable. PAST MEDICAL HISTORY: As above, has history of chronic diastolic heart failure, COPD, atrial fibrillation, coronary artery disease, thyroid cancer, bilateral cataract surgery, breast cancer, lumpectomy, radiation and chemo, bladder cancer , which was resected in 2019. SURGICAL HISTORY: Significant for TAVR in 2016, cataract surgery, thyroid surgery, bladder resection. SOCIAL HISTORY: She is a . She stopped smoking 12 years ago, but she has a history of two packs per day for 30 to 40 years. Drinks one glass of wine per day. Denies drug use. FAMILY HISTORY: Significant for father had bladder cancer, and brother had enlarged prostate and hypertension. OBJECTIVE DATA: VITAL SIGNS: Blood pressure is 177/64, heart rate now 93, respirations 23. The patient is afebrile at 97.8 degrees Fahrenheit. GENERAL: This is an alert, but somewhat distressed elderly woman. NECK: Supple. Jugular veins are mildly distended. CHEST: Coarse without crackles, but very tight air movement is noted. Slight wheezes are heard. HEART: Sounds are regular to rate and rhythm. No murmur or gallop. ABDOMEN: Benign. Bowel sounds positive. EXTREMITIES: Lower extremities without edema, clubbing, or cyanosis. DATABASE: EKG is reviewed, initially reveals atrial flutter with 2:1 AV conduction, possibly typical isthmus-dependent morphology. Later telemetry strips reveals return of sinus rhythm this morning, and extreme sinus arrest with junctional escape is documented. LABORATORY DATA: White cell count is 10.2, hemoglobin 9.7, platelet count is 428. Sodium 142, potassium 4.2, BUN is 26, creatinine is 0.94, digoxin level was 4.16. ASSESSMENT AND PLAN: 1. Ms. Dickinson is a pleasant 88-year-old woman with history of pulmonary disease. She developed progressive respiratory distress causing the current admission. She is also noted to be in atrial flutter and some degree of fluid overload. She was treated for this respiratory distress with both the diureses, although no significant fluid loss has been achieved. Her atrial flutter on the other hand has converted this morning. Soon after that, she developed marked bradycardia. 2. Atrial flutter, possibly typical isthmus-dependent in morphology, rates are difficult to control with excessive AV marysol agents. She clearly has tachy- jermaine syndrome. After medical stabilization, Cavotricuspid isthmus ablation is at potential possibility, but at this point, she is not a good candidate for that. 3. Marked bradycardia in the setting of respiratory arrest, but also with elevated digoxin level and recent diltiazem use. The current event likely triggered by the respiratory distress, but she may not tolerate her AV marysol blocking agents well. If further atrial flutter is seen with rapid rate, ablation versus pacing could be a strong consideration, but at this point he is not a candidate for either of them due to respiratory status. 4. Anticoagulation. Consider Lovenox for now. 5. DNR status and advanced age. Discussed the treatment options with the family. They have not decided how aggressive they want to treat with this elderly lady. At this point, she is not to be intubated secondary to her and the family's wishes. We will follow with you. Thank you for allowing me to participate in the care of this patient. Job ID: [id number] MTDD
[2019-02-15] MEDS ORDERED: Vancomycin HCl 1 GM in Premix Bag 1 BAG IVPB SCH (13:00)
--- NOTE | 2019-02-15 13:00 | PDOC.HOSPP ---
- Subjective Encounter Date: 02/15/19 Encounter Time: 12:00 Subjective: The patient spiked a fever overnight to 100.3. Heart rate has remained stable. She received 80 mg IV lasix this am. Creatinine slightly worsened today. ' Repeat chest X ray doesn't show significant improvement. Patient is currently on 4L nasal cannula. SHe is sleeping comfortably in bed, still not responsive. - Objective Vital Signs & Weight: Vital Signs (12 hours) Temp Pulse Ox 02/15/19 11:06 99.2 F 02/15/19 08:04 99.0 F 02/15/19 08:00 86 L 02/15/19 07:29 90 L 02/15/19 05:15 99.9 F H 02/15/19 03:38 100.3 F H Weight Weight 142 lb 11.2 oz Most Recent Monitor Data Heart Rate from ECG 90 NIBP 184/66 NIBP BP-Mean 105 Respiration from ECG 23 SpO2 89 I&O: 02/14/19 02/15/19 02/16/19 06:59 06:59 06:59 Intake Total 1660 50 Output Total 1350 450 Balance 310 -400 Result Diagrams: 02/15/19 09:57 02/15/19 09:56 Hospitalist ROS - Review of Systems ROS unobtainable: due to mental status Constitutional: reports: fever, chills - Medication Medications: Active Medications Generic Name Dose Route Start Last Admin Trade Name Freq PRN Reason Stop Dose Admin Lorazepam 2 mg 02/14/19 13:50 02/15/19 10:23 Ativan SLOW IVP 2 mg Q4H PRN Administration Anxiety/Agitation Morphine Sulfate 1 mg 02/14/19 07:55 02/14/19 08:28 Morphine SLOW IVP 1 mg Q2H PRN Administration Moderate to Severe Pain (6-10) Morphine Sulfate 2 mg 02/14/19 09:49 02/15/19 10:22 Morphine SLOW IVP 2 mg Q1H PRN Administration Dyspnea - Exam General - other findings: patient sleeping in bed, ill, non-verbal Heart: RRR, no murmur, no gallops, no rubs Respiratory: CTAB, no wheezes, no rales, no ronchi Gastrointestinal: soft, non-tender, non-distended Extremities: no edema Hosp A/P - Plan ECHO: EF 60-65%, diastolic dysfunction Chest X ray 02/13: bilateral pleural effusions right greater than left CTA: no PE. Mediastinal LAD, emphysema, AVM right lower lobe Chest x ray: airspace opacities plus bilateral pleural effusions This is 88 year old female who came in for dyspnea on exertion, found to have pulmonary edema on X ray, and in aflutter with RVR #Acute hypoxic respiratory failure secondary to CHF exacerbation from uncontrolled atrial fibrillation #Aflutter with RVR #Acute encephalopathy #RICHARD #Hypothyroidism #Gout - patient was transferred to ICU yesterday due to 12 second pause and bradycardia requiring epinephrine. She was placed on BIPAP however mask taken off due to patient discomfort -received additional 80 mg IV lasix yesterday and now saturating okay on 5L nasal cannula . Discontinuing further lasix due to RICHARD - Discussed possibly trial of antibiotics for hospital acquired pneumonia, however explained that this would not improve her mental status, could worsen her kidney function and she may require IV fluids again. Family decided that blood draws and IV medication uncomfortable with her. Want to discontinue all treatment - increase morphine to q30 minutes prn, ativan q2 hours prn - palliative care following
--- NOTE | 2019-02-15 14:18 | PDOC.PALPN ---
Palliative Progress Note - Subjective Non responsive with irregular respirations, shallow. Daughter and two sons at bedside. - Objective Vital Signs: Vital Signs - Most Recent Temp Pulse Resp BP Pulse Ox 99.2 F 87 25 H 130/63 86 L 02/15/19 11:06 02/14/19 09:28 02/14/19 09:28 02/14/19 04:00 02/15/19 08:00 - Physical Exam Constitutional: NAD Deviation from normal: non responsive, garsia hue HEENT: sclera anicteric Respiratory: unlabored breathing Deviation from normal: Shallow respirations, irrigular with episodes of apnea 10 seconds Cardiovascular: RRR Deviation from normal: no purposeful movement Deviation from normal: non responsive Deviation from normal: garsia, poor turgor - Assessment (1) Palliative care encounter Code(s): Z51.5 - ENCOUNTER FOR PALLIATIVE CARE Current Visit: Yes Status: Acute (2) COPD (chronic obstructive pulmonary disease) with chronic bronchitis Code(s): J44.9 - CHRONIC OBSTRUCTIVE PULMONARY DISEASE, UNSPECIFIED Current Visit: No Status: Chronic (3) Chronic diastolic CHF (congestive heart failure) Code(s): I50.32 - CHRONIC DIASTOLIC (CONGESTIVE) HEART FAILURE Current Visit: No Status: Chronic (4) Acute on chronic respiratory failure Code(s): J96.20 - ACUTE AND CHR RESP FAILURE, UNSP W HYPOXIA OR HYPERCAPNIA Current Visit: Yes Status: Acute - Plan Plan: Visited with daughter of patient and two sons. They expressed desire for comfort measures, goal is to move their mother as little as possible. Family provided life review, especially previous week. Therapeutic listening. *Family desires comfort measures / read Dr Mcdowell note and will ensure comfort measures in place. *Family does not want to utilize hospice at this time for end of life care *Continue support for patient and family [75] minutes spent on this encounter with >50% of the time in counseling and coordination of care.
--- NOTE | 2019-02-15 14:24 | PDOC.CPN ---
- Subjective Date: 02/15/19 Time: 08:00 Interval history: EP PROGRESS NOTE: 02/09/19 Follow up for atrial flutter. Patient is asleep in bed. Sons are bedside. Palliative care involved with talk of comfort care. - Review of Systems ROS unobtainable: due to mental status (sleeping with recent morphine given) - Objective Allergies/Adverse Reactions: Allergies Allergy/AdvReac Type Severity Reaction Status Date / Time adhesive tape Allergy Verified 07/13/18 09:38 latex Allergy Verified 02/12/19 15:19 Sulfa (Sulfonamide Allergy Verified 07/13/18 09:38 Antibiotics) Visit Medications: Current Medications Lorazepam (Ativan) 2 mg SLOW IVP Q2H PRN PRN Reason: Anxiety/Agitation Last Admin: 02/15/19 13:36 Dose: 2 mg Morphine Sulfate (Morphine) 1 mg SLOW IVP Q2H PRN PRN Reason: Moderate to Severe Pain (6-10) Last Admin: 02/14/19 08:28 Dose: 1 mg Morphine Sulfate (Morphine) 2 mg SLOW IVP Q1H PRN PRN Reason: Dyspnea Last Admin: 02/15/19 13:36 Dose: 2 mg Vital Signs & Weight: Vital Signs Temp Pulse Ox 02/15/19 11:06 99.2 F 02/15/19 08:04 99.0 F 02/15/19 08:00 86 L 02/15/19 07:29 90 L 02/15/19 05:15 99.9 F H 02/15/19 03:38 100.3 F H Weight 142 lb 11.2 oz - Physical Exam General: no apparent distress Cardiac: regular rate and rhythm Lungs: clear to auscultation Extremities: no edema - Labs Result Diagrams: 02/15/19 09:57 02/15/19 09:56 Troponin/CKMB CK-MB (CK-2) 1.7 ng/mL (0-6.6) 02/12/19 11:38 Troponin I 0.010 ng/mL (< 0.028) 02/12/19 11:38 - Telemetry Sinus rhythms and dysrhythmias: sinus rhythm - Assessment/Plan Assessment/Plan: 1. Atrial flutter with RVR - no in SR, no further recurrences - appears to be CTI dependent 2. Tachy-jermaine syndrome 3. Respiratory failure 4. Elevated digoxin levels Palliative care involved and patient possibly going on comfort care by discussion with Dr Phelps. If family/patient decide to resume treatment ablation could be considered for her atrial flutter. EP will sign off unless further care/treatment is needed.
[2019-02-16] MEDS: Morphine 2 MG/ML SYRINGE SLOW IVP PRN ×3 (00:11→10:22)
[2019-02-16 07:25] VITALS: TEMP 102.2
--- NOTE | 2019-02-16 10:18 | PRG ---
DATE OF SERVICE: 02/16/2019 SUBJECTIVE: The patient is essentially unresponsive. Family is at bedside. She continues to have some agonal respirations. OBJECTIVE: VITAL SIGNS: Temperature 102.2, pulse 81, O2 saturation in the low 90s. They have stop checking her blood pressure. GENERAL: She is moribund. CHEST: She has a bleeding excoriation on the anterior aspect of her chest, which is covered with a bandage. Breath sounds are diminished throughout. CARDIAC: Distant heart sounds. Irregular rate. EXTREMITIES: Edematous. ASSESSMENT: End-stage congestive heart failure, compound by sepsis. PLAN: Comfort care. expected soon. Job ID: [id number]
--- NOTE | 2019-02-16 12:27 | PDOC.EVN ---
Event Note - Event Note Event Note: Was notified close to 11 am that patient had passed. Patient noted to be unresponsive with no heart or lung sounds, no pupillary or corneal reflex, no pulse. Patient pronounced at 10:38 am
--- NOTE | 2019-02-17 13:37 | DIS ---
DATE OF ADMISSION: 02/12/2019 DATE OF EXPIRATION: 02/16/2019. ADMITTING DIAGNOSES: Atrial flutter with rapid ventricular response, congestive heart failure exacerbation, and hypothyroidism. DISCHARGE DIAGNOSES: Acute hypoxic respiratory failure secondary to congestive heart failure exacerbation from uncontrolled atrial fibrillation, atrial flutter with rapid ventricular response, bradycardia, acute encephalopathy, acute kidney injury, and hypothyroidism. CONSULTATIONS: Cardiology with Dr. Patterson and Palliative Care. PROCEDURES PERFORMED: None. HISTORY AND HOSPITAL COURSE: This is an 88-year-old female with a past medical history of chronic diastolic heart failure, COPD, history of atrial fibrillation , and CAD, who presented with a 1-week history of shortness of breath, worsening dyspnea on exertion, and edema in her legs. The patient had been reportedly drinking excessive amounts of fluid prior to admission. She normally would wear oxygen at night, but noticed that she had to use it more often. Upon presentation to the ER, the patient was noted to have an initial troponin of 0.010, BNP of 644. The patient was noted to have bilateral pleural effusions, right greater than left on her chest x-ray, and a CTA of her chest showed no evidence of PE. She was admitted for further workup. Acute CHF exacerbation/atrial flutter with RVR Bradycardia Acute Kidney Injury Possible Anoxic Brain Injury Acute hypoxic respiratory failure secondary to CHF exacerbation versus pneumonia : The patient was initially diuresed with 40 mg IV Lasix b.i.d. The patient had lost 2 pounds the following days, and she was continued on the same dose. She was placed on a Cardizem drip to control her atrial flutter; however, her heart rate remained persistently uncontrolled, and the patient was already maxed out on the highest dose of cardizem drip. She was also treated empirically for possible pneumonia with ceftriaxone and azithromycin. Cardiology was consulted and they recommended adding digoxin. The patient was loaded with digoxin for 3 doses on 02/13. On the morning of 02/14, around 06:50 a.m., the patient was noted to become bradycardic with the heart rate in the 20s, and she briefly lost a pulse. [facility] was called, and due to the fact that the patient was a chemical code only, she was given 1 dose of epinephrine. She regained ROSC with her SBP in the 170s and her heart rate in the 90s to 100s. However her mental status was very poor and patient was not very responsive. She was placed on a Ventimask and was transferred to the ICU. Repeat chest X ray showed worsening heart failure. Dr. Cain was consulted and stated we could try increasing lasix to 80 mg IV bid. He met with family and discussed her poor prognosis regardless. After discussion with family and medical power of district attorney, they agreed to try IV diuretics and a trial of BIPAP, but wanted her to remain DNI and discontinue all other treatment including antibiotics. SHe was transferred to the ICU and placed on BIPAP and was diuresed with lasix. THey also requested morphine and ativan prn for air hunger. Later that evening around 10 p.m., the patient's family members reported that they decided to take the BiPAP mask off because it was very uncomfortable for the patient. On 02/15, the patient's oxygenation improved to nasal cannula and heart rate remained controlled in the 70's, however, the patient was still noted to be encephalopathic and was not responsive to verbal commands. She did spike a fever to 100.3 overnight and repeat chest Xray showed persistent effusions and infiltrate. A discussion to order vancomycin and zosyn was discussed with the family however they decided it was futile since it would not improve her mental status and would worsen her kidney function. Palliative care was consulted and family had requested comfort measures with them. They requested that her morphine and her Ativan be increased to q.30 minutes p.r.n. and q.2 hours p.r.n. respectively. On 02/16, at 10:38 a.m., the patient was noted to go into asystole and was unresponsive with no heart or lung sounds, no pupillary or corneal reflex, and no pulse. She was pronounced at 10:38 a.m. Pertinent Labs: 02/15: Hb 9.1/29.8 02/15: creatinine 2.18 Troponin: 0.010 Pertinent Imaging: ECHO: EF 60-65%, diastolic dysfunction Chest X ray 02/13: bilateral pleural effusions right greater than left Chest X ray 02/14: progressive pulmonary edema and congestive heart failure Chest Xray 02/15: airspace opacities are similar as well as bilateral pleural effusion s CTA: no PE. Mediastinal LAD, emphysema, AVM right lower lobe Chest x ray: airspace opacities plus bilateral pleural effusions DISCHARGE Condition: The patient . ISSUES TO BE ADDRESSED AT FOLLOWUP: None. Job ID: [id number] MTDD
--- NOTE | 2019-02-18 05:10 | PQF ---
[employer] Crystal Reports Wojciech LgNATHALYFLAKITOJANA RANJAN HANNAH FERN VENEGAS MD [id number] [facility] [id number] CLINICAL DOCUMENTATION CLARIFICATION FORM: POST DISCHARGE Addendum to original discharge summary date: ____ Late entry note date: __ DATE: 02/18/2019 ATTN: FERN VENEGAS MD Please exercise your independent, professional judgment in responding to the clarification form. Clinical indicators are provided on the bottom of this form for your review Please check appropriate box(s) to clarify if the following diagnosis has been ruled in or ruled out: SEPSIS__(CDI/Coding list diagnosis here) [ ] Ruled in diagnosis [ ] Continue to treat [ ] Resolved [ ] Ruled out diagnosis [ x ] Cannot rule out diagnosis [ ] Other diagnosis [ ] Unable to determine In addition, please specify: Present on Admission (POA): [ ] Yes [ ] No [ x] Unable to determine For continuity of documentation, please document condition throughout progress notes and discharge summary. Thank You. CLINICAL INDICATORS - SIGNS / SYMPTOMS / LABS Compund by Sepsis - Documented in Progress notes on 02/16 by FERN VENEGAS MD Temperature 102.2 - Documented in Progress notes on 02/16 by FERN VENEGAS MD WBC 3.8 on 02/03 - Documented in Laboratory Results Lactic Acid 2.9 on 02/14 - Documented in Laboratory Results Pulse 118 on 02/12 and BP 155/66 on 02/12- Documented on Vital Signs RR 25 on 02/14 - Documented on Vital Signs RISK FACTORS Acute hypoxic respiratory failure - Documented in Hospital PNs on 02/15 by Charitytanesha Mcdowell RICHARD - Documented in Hospital PNs on 02/15 by [facility] Jeremias Acute encephalopathy - Documented in Hospital PNs on 02/15 by Charitytanesha Mcdowell CHF exacerbation - Documented in Hospital PNs on 02/15 by [facility] Jeremias TREATMENT Rocephin 1 gm IVPB - Documented in Medication report Azithromycin 500 mg IVPB- Documented in Medication report (This form is maintained as a part of the permanent medical record) 2014 [employer]. All Rights Reserved Ok [email or web address] [not provided] MTDD
== END 2019-02-16 13:59 | disposition expired | DRG 291 ==
LOC: ERS 11:24 → 2NO 12:50 → IMCU/EMU 02-14 09:20
PROVIDERS: ADMIT Family Medicine; ATTEND Family Medicine
PROC: 5A09357 Assistance with Respiratory Ventilation, Less than 24 Consecutive Hours, Continuous Positive Airway Pressure (ICD-10-PCS; principal; 2019-02-14)
DX: I11.0 Hypertensive heart disease with heart failure (principal); J96.21 Acute and chronic respiratory failure with hypoxia; A41.9 Sepsis, unspecified organism; J18.9 Pneumonia, unspecified organism; I48.92 Unspecified atrial flutter; G93.40 Encephalopathy, unspecified; N17.9 Acute kidney failure, unspecified; G93.1 Anoxic brain damage, not elsewhere classified; J44.0 Chronic obstructive pulmonary disease with (acute) lower respiratory infection; I50.33 Acute on chronic diastolic (congestive) heart failure; I48.91 Unspecified atrial fibrillation; E03.9 Hypothyroidism, unspecified; D64.9 Anemia, unspecified; I25.10 Atherosclerotic heart disease of native coronary artery without angina pectoris; M10.9 Gout, unspecified; Z66 Do not resuscitate; Z51.5 Encounter for palliative care; Z98.42 Cataract extraction status, left eye; Z98.41 Cataract extraction status, right eye; Z85.3 Personal history of malignant neoplasm of breast; Z87.891 Personal history of nicotine dependence; Z79.82 Long term (current) use of aspirin; Z88.2 Allergy status to sulfonamides; Z91.040 Latex allergy status; Z95.2 Presence of prosthetic heart valve; I49.5 Sick sinus syndrome; Z85.51 Personal history of malignant neoplasm of bladder; Z80.52 Family history of malignant neoplasm of bladder; I46.9 Cardiac arrest, cause unspecified
CPT/HCPCS: 36415; 36416; 71045; 71275; 72070; 80048; 80053; 80162; 82553; 82607; 82746; 83605; 83735; 83880; 84443; 84484; 85025; 85027; 85520; 92950; 93005; 93010; 93306; 94640; 94660; 94760; J0171; J0456; J0696; J1160; J1650; J1940; J2060; J2270; J3490; J7050; J7620; Q9966